=== PATIENT | female | born 1950 | race Caucasian/White ===

== ENCOUNTER 2022-01-30 06:44 | Emergency (ER) | payer MEDICARE ==
--- NOTE | 2022-01-30 07:44 | ERPHSYRPT ---
- History of Present Illness Time Seen by Provider: 01/30/22 07:00 Source: patient, EMS Exam Limitations: no limitations Patient Subjective Stated Complaint: Pt states "Around 0430 I started throwing up and having diarrhea non stop. [place] at [place] restuarant in [id number] night so I wonder if I got food poisoning" Triage Nursing Assessment: Pt alert and oriented x3, pt brought in by [facility] 1, pt c/o vomiting and diarrhea since 0430 this morning. pt denies stomach pain at this time, pt stated "I probably have thrown up around 10 times tonight." pt is afebrile at this time. Physician History: This is a 71-year-old overweight white female patient who presents to the emergency room with abdominal pain that began roughly 330 this morning and vomiting and diarrhea at approximately 430 this morning. She vomited aristides roximately 10 times prior to her evaluation in the emergency department. Patient states that she does have some generalized abdominal discomfort as well. Patient ate a tenderloin last night. Patient has had a hysterectomy in the past. She still has her fallopian tubes and ovaries present. She had no other abdominal surgeries. Patient states no other individuals in the family have similar symptoms. She has no known exposure to individuals with similar symptoms or flulike diagnoses. Patient has a history of psoriatic arthritis and osteoarthritis. There are no new medications. Patient denies chest pain. She denies shortness of breath. Timing/Duration: today Severity: moderate Associated Symptoms: nausea, vomiting, abdominal pain, weakness, No shortness of breath, No chest pain Allergies/Adverse Reactions: hydrocodone Adverse Reaction (Intermediate, Verified 01/30/22 06:49) Lightheadedness Home Medications: Allopurinol 100 mg [Zyloprim 100 mg] 2 tab PO DAILY 11/02/14 [History] Enalapril Maleate 20 mg PO DAILY 11/02/14 [History] Estropipate 0.75 mg PO DAILY 11/02/14 [History] Hydrochlorothiazide 25 mg [hydroDIURIL 25 MG] 25 mg PO DAILY 11/02/14 [History] Metoprolol Tartrate 100 mg PO DAILY 11/02/14 [History] Chlorzoxazone 500 mg PO DAILY 01/30/22 [History] Hx Tetanus, Diphtheria Vaccination/Date Given: Yes Hx Influenza Vaccination/Date Given: No Hx Pneumococcal Vaccination/Date Given: No Immunizations Up to Date: Yes Travel Risk - International Travel Have you traveled outside of the country in past 3 weeks: No - Coronavirus Screening Are you exhibiting any of the following symptoms?: Yes Symptoms: Vomiting/Diarrhea Close contact with a COVID-19 positive Pt in past 14-21 Days: No - Vaccine Status Have you recieved a Covid-19 vaccination: No - Review of Systems Constitutional: Weakness Eyes: No Symptoms Ears, Nose, & Throat: No Symptoms Respiratory: No Symptoms Cardiac: No Symptoms Abdominal/Gastrointestinal: Abdominal Pain, Nausea, Vomiting, Diarrhea Genitourinary Symptoms: No Symptoms Musculoskeletal: No Symptoms Skin: No Symptoms Neurological: No Symptoms Psychological: No Symptoms Endocrine: No Symptoms Hematologic/Lymphatic: No Symptoms Immunological/Allergic: No Symptoms All Other Systems: Reviewed and Negative - Past Medical History Pertinent Past Medical History: Yes Neurological History: No Pertinent History ENT History: No Pertinent History Cardiac History: Hypertension, Other Respiratory History: No Pertinent History Endocrine Medical History: No Pertinent History Musculoskeletal History: Osteoarthritis GI Medical History: No Pertinent History History: No Pertinent History Psycho-Social History: No Pertinent History Female Reproductive Disorders: No Pertinent History Other Medical History: ESCHEMIA OF THE HEART. PSORIATIC ARTHRITIS. - Past Surgical History Past Surgical History: Yes Neuro Surgical History: No Pertinent History Cardiac: No Pertinent History Respiratory: No Pertinent History Gastrointestinal: No Pertinent History Genitourinary: No Pertinent History Musculoskeletal: Orthopedic Surgery Female Surgical History: Hysterectomy, Tubal Ligation Other Surgical History: CARPEL TUNNEL - COLONOSCOPY - ARTHROSCOPY/R KNEE - Social History Smoking Status: Never smoker Exposure to second hand smoke: No Drug Use: none Patient Lives Alone: No - Nursing Vital Signs Nursing Vital Signs: Initial Vital Signs Temperature 97.8 F 01/30/22 06:50 Pulse Rate 71 01/30/22 06:50 Respiratory Rate 18 01/30/22 06:50 Blood Pressure 175/72 01/30/22 06:50 O2 Sat by Pulse Oximetry 100 01/30/22 06:50 Pain Scale Pain Intensity 0 - Physical Exam General Appearance: no apparent distress, alert, anxiety, obese Eye Exam: PERRL/EOMI, eyes nml inspection Ears, Nose, Throat Exam: normal ENT inspection, moist mucous membranes Neck Exam: normal inspection, non-tender, supple, full range of motion Respiratory Exam: normal breath sounds, lungs clear, airway intact, No chest tenderness, No respiratory distress Cardiovascular Exam: regular rate/rhythm, normal heart sounds, normal peripheral pulses Gastrointestinal/Abdomen Exam: soft, normal bowel sounds, tenderness (Mild diffuse with palpation), guarding, No rebound Pelvic Exam: not done Rectal Exam: not done Back Exam: normal inspection, normal range of motion, No CVA tenderness, No vertebral tenderness Extremity Exam: normal inspection, normal range of motion, pelvis stable Neurologic Exam: alert, oriented x 3, cooperative, batchmaker II-XII nml as tested, normal mood/affect, nml cerebellar function, nml station & gait, sensation nml Skin Exam: normal color, warm, dry Lymphatic Exam: No adenopathy SpO2 Interpretation: normal SpO2: 100 O2 Delivery: Room Air - Course Nursing assessment & vital signs reviewed: Yes EKG Interpreted by Me: RATE (69), Sinus Rhythm, NORMAL AXIS, NORMAL INTERVALS, NORMAL QRS, NORMAL ST-T, Other (No acute ischemic changes. No comparison EKG available) Ordered Tests: Active Orders 24 hr Category Date Time Status Senior Sales Engineer STAT Care 01/30/22 07:46 Active EKG-ER Only STAT Care 01/30/22 07:45 Active IV Insertion STAT Care 01/30/22 07:45 Active Pulse Oximetry (ED) STAT Care 01/30/22 07:45 Active ABDOMEN AND PELVIS W/0 CONTRAS [CT] Stat Exams 01/30/22 07:46 Completed BLOOD CULTURE Stat Lab 01/30/22 08:05 Received CBC W DIFF Stat Lab 01/30/22 08:01 Completed CMP Stat Lab 01/30/22 08:01 Completed INFLUENZA A+B TC Stat Lab 01/30/22 08:55 Completed Lactic Acid Stat Lab 01/30/22 07:45 Completed [place] Screen Stat Lab 01/30/22 08:01 Completed TROPONIN Q3H Lab 01/30/22 08:01 Completed TROPONIN Q3H Lab 01/30/22 11:00 Ordered TROPONIN Q3H Lab 01/30/22 14:00 Ordered TROPONIN Q3H Lab 01/30/22 17:00 Ordered TROPONIN Q3H Lab 01/30/22 20:00 Ordered UA W/RFX CULTURE Stat Lab 01/30/22 09:23 Completed Medication Summary Generic Name Dose Route Start Last Admin Trade Name Freq PRN Reason Stop Dose Admin Sodium Chloride 500 mls @ 500 mls/hr 01/30/22 09:33 01/30/22 09:42 Sodium Chloride 0.9% 500 Ml IV 01/30/22 10:32 500 mls/hr .Q1H ONE Administration Discontinued Medications Generic Name Dose Route Start Last Admin Trade Name Brandan PRN Reason Stop Dose Admin Sodium Chloride 1,000 mls @ 999 mls/hr 01/30/22 07:45 01/30/22 09:42 Sodium Chloride 0.9% 1000 Ml IV 01/30/22 08:45 Infused .Q1H1M STA Infusion Sodium Chloride Confirm 01/30/22 07:52 Sodium Chloride 0.9% 1000 Ml Administered 01/30/22 07:53 Dose 1,000 mls @ ud .ROUTE .STK-MED ONE Sodium Chloride Confirm 01/30/22 09:40 Sodium Chloride 0.9% 500 Ml Administered 01/30/22 09:41 Dose 500 mls @ ud IV .STK-MED ONE Ondansetron HCl 4 mg 01/30/22 07:51 01/30/22 07:55 Ondansetron Hcl 4 Mg/2 Ml Vial IV 01/30/22 07:52 4 mg STAT ONE Administration Ondansetron HCl Confirm 01/30/22 07:52 Ondansetron Hcl 4 Mg/2 Ml Vial Administered 01/30/22 07:53 Dose 4 mg .ROUTE .STK-MED ONE Lab/Rad Data: Laboratory Result Diagrams 01/30/22 08:01 01/30/22 08:01 Laboratory Results 01/30/22 01/30/22 01/30/22 Range/Units 09:23 08:55 08:01 WBC (4.0-10.5) K/mm3 RBC (4.1-5.4) M/mm3 Hgb (12.0-16.0) gm/dl Hct (35-47) % MCV (78-100) fl MCH (26-32) pg MCHC (32-36) g/dl RDW (11.5-14.0) % Plt Count (150-450) K/mm3 MPV (7.5-11.0) fl Gran % (36.0-66.0) % Eos # (Auto) (0-0.5) Absolute Lymphs (auto) (1.0-4.6) Absolute Monos (auto) (0.0-1.3) Lymphocytes % (24.0-44.0) % Monocytes % (0.0-12.0) % Eosinophils % (0.00-5.0) % Basophils % (0.0-0.4) % Absolute Granulocytes (1.4-6.9) Basophils # (0-0.4) Sodium (137-145) mmol/L Potassium (3.5-5.1) mmol/L Chloride (98-107) mmol/L Carbon Dioxide (22-30) mmol/L Anion Gap (5-15) MEQ/L BUN (7-17) mg/dL Creatinine (0.52-1.04) mg/dL Estimated GFR ML/MIN Glucose (74-106) mg/dL Lactic Acid (0.4-2.0) Calcium (8.4-10.2) mg/dL Total Bilirubin (0.2-1.3) mg/dL AST (14-36) U/L ALT (0-35) U/L Alkaline Phosphatase (38-126) U/L Troponin I < 0.012 (0.000-0.034) ng/mL Serum Total Protein (6.3-8.2) g/dL Albumin (3.5-5.0) g/dL Urinalys Dipstick Clnc MAIN LAB Urine Color YELLOW (YELLOW) Urine Appearance CLEAR (CLEAR) Urine pH 8.5 (5-6) Ur Specific [place] 1.020 (1.005-1.025) POC Urine Protein Conf NEGATIVE (Negative) Urine Ketones NEGATIVE (NEGATIVE) Urine Nitrite NEGATIVE (NEGATIVE) Urine Bilirubin NEGATIVE (NEGATIVE) Urine Urobilinogen 0.2 (0-1) mg/dL Urine Leukocytes NEGATIVE (NEGATIVE) Urine WBC (Auto) 0-2 (0-5) /HPF Urine RBC (Auto) 0-2 (0-2) /HPF U Epithel Cells (Auto) FEW (FEW) /HPF Urine Bacteria (Auto) FEW (NEGATIVE) /HPF Urine RBC NEGATIVE (0-5) Vinay/ul Ur Culture Indicated? NO Urine Glucose NEGATIVE (NEGATIVE) mg/dL Monoscreen (Negative) Influenza Type A Ag NEGATIVE (NEGATIVE) Influenza Type B Ag NEGATIVE (NEGATIVE) Group A Strep Antibody (NEGATIVE) Slides for Path Review 01/30/22 01/30/2201/30/22 Range/Units 08:01 08:01 08:01 WBC (4.0-10.5) K/mm3 RBC (4.1-5.4) M/mm3 Hgb (12.0-16.0) gm/dl Hct (35-47) % MCV (78-100) fl MCH (26-32) pg MCHC (32-36) g/dl RDW (11.5-14.0) % Plt Count (150-450) K/mm3 MPV (7.5-11.0) fl Gran % (36.0-66.0) % Eos # (Auto) (0-0.5) Absolute Lymphs (auto) (1.0-4.6) Absolute Monos (auto) (0.0-1.3) Lymphocytes % (24.0-44.0) % Monocytes % (0.0-12.0) % Eosinophils % (0.00-5.0) % Basophils % (0.0-0.4) % Absolute Granulocytes (1.4-6.9) Basophils # (0-0.4) Sodium 129 L (137-145) mmol/L Potassium 3.8 (3.5-5.1) mmol/L Chloride 90 L (98-107) mmol/L Carbon Dioxide 28 (22-30) mmol/L Anion Gap 14.6 (5-15) MEQ/L BUN 19 H (7-17) mg/dL Creatinine 0.77 (0.52-1.04) mg/dL Estimated GFR > 60.0 ML/MIN Glucose 150 H (74-106) mg/dL Lactic Acid (0.4-2.0) Calcium 9.1 (8.4-10.2) mg/dL Total Bilirubin 0.80 (0.2-1.3) mg/dL AST 38 H (14-36) U/L ALT 20 (0-35) U/L Alkaline Phosphatase 72 (38-126) U/L Troponin I (0.000-0.034) ng/mL Serum Total Protein 7.4 (6.3-8.2) g/dL Albumin 4.1 (3.5-5.0) g/dL Urinalys Dipstick Clnc Urine Color (YELLOW) Urine Appearance (CLEAR) Urine pH (5-6) Ur Specific [place] (1.005-1.025) POC Urine Protein Conf (Negative) Urine Ketones (NEGATIVE) Urine Nitrite (NEGATIVE) Urine Bilirubin (NEGATIVE) Urine Urobilinogen (0-1) mg/dL Urine Leukocytes (NEGATIVE) Urine WBC (Auto) (0-5) /HPF Urine RBC (Auto) (0-2) /HPF U Epithel Cells (Auto) (FEW) /HPF Urine Bacteria (Auto) (NEGATIVE) /HPF Urine RBC (0-5) Vinay/ul Ur Culture Indicated? Urine Glucose (NEGATIVE) mg/dL Monoscreen NEGATIVE (Negative) Influenza Type A Ag (NEGATIVE) Influenza Type B Ag (NEGATIVE) Group A Strep Antibody NOT DETECTED (NEGATIVE) Slides for Path Review 01/30/22 01/30/22 Range/Units 08:01 07:45 WBC 8.4 (4.0-10.5) K/mm3 RBC 4.25 (4.1-5.4) M/mm3 Hgb 13.8 (12.0-16.0) gm/dl Hct 40.9 (35-47) % MCV 96.2 (78-100) fl MCH 32.5 H (26-32) pg MCHC 33.7 (32-36) g/dl RDW 12.9 (11.5-14.0) % Plt Count 226 (150-450) K/mm3 MPV 9.7 (7.5-11.0) fl Gran % 86.7 H (36.0-66.0) % Eos # (Auto) 0.10 (0-0.5) Absolute Lymphs (auto) 0.52 L (1.0-4.6) Absolute Monos (auto) 0.49 (0.0-1.3) Lymphocytes % 6.2 L (24.0-44.0) % Monocytes % 5.8 (0.0-12.0) % Eosinophils % 1.2 (0.00-5.0) % Basophils % 0.1 (0.0-0.4) % Absolute Granulocytes 7.26 H (1.4-6.9) Basophils # 0.01 (0-0.4) Sodium (137-145) mmol/L Potassium (3.5-5.1) mmol/L Chloride (98-107) mmol/L Carbon Dioxide (22-30) mmol/L Anion Gap (5-15) MEQ/L BUN (7-17) mg/dL Creatinine (0.52-1.04) mg/dL Estimated GFR ML/MIN Glucose (74-106) mg/dL Lactic Acid 1.6 (0.4-2.0) Calcium (8.4-10.2) mg/dL Total Bilirubin (0.2-1.3) mg/dL AST (14-36) U/L ALT (0-35) U/L Alkaline Phosphatase (38-126) U/L Troponin I (0.000-0.034) ng/mL Serum Total Protein (6.3-8.2) g/dL Albumin (3.5-5.0) g/dL Urinalys Dipstick Clnc Urine Color (YELLOW) Urine Appearance (CLEAR) Urine pH (5-6) Ur Specific [place] (1.005-1.025) POC Urine Protein Conf (Negative) Urine Ketones (NEGATIVE) Urine Nitrite (NEGATIVE) Urine Bilirubin (NEGATIVE) Urine Urobilinogen (0-1) mg/dL Urine Leukocytes (NEGATIVE) Urine WBC (Auto) (0-5) /HPF Urine RBC (Auto) (0-2) /HPF U Epithel Cells (Auto) (FEW) /HPF Urine Bacteria (Auto) (NEGATIVE) /HPF Urine RBC (0-5) Vinay/ul Ur Culture Indicated? Urine Glucose (NEGATIVE) mg/dL Monoscreen (Negative) Influenza Type A Ag (NEGATIVE) Influenza Type B Ag (NEGATIVE) Group A Strep Antibody (NEGATIVE) Slides for Path Review YES - Progress Progress: improved, re-examined Progress Note: 01/30/22 10:00 CAT scan of the abdomen pelvis shows no acute intra-abdominal or intrapelvic findings. There is a hepatic cyst versus hepatic benign hemangioma. Further evaluation can be performed as an outpatient using ultrasound. There are ovarian cysts present. Counseled pt/family regarding: lab results, diagnosis, need for follow-up, rad results - Departure Departure Disposition: Home Clinical Impression: Vomiting and diarrhea Condition: Stable Critical Care Time: No Referrals: KALPANA SHORT [Primary Care Provider] - Follow up/PCP as directed Additional Instructions: Drink plenty of clear liquids prior to advancing your diet. Follow-up with your primary care physician for further evaluation and management. Prescriptions: Ondansetron ODT 4 MG [Zofran Odt 4 mg] 4 mg PO Q6H PRN PRN #10 tablet PRN Reason: Vomiting
[2022-01-30] MEDS ORDERED: Sodium Chloride 0.9% 1000 ML 1,000 ML IV STA (07:45)
[2022-01-30] MEDS ORDERED: Zofran 4 MG/2 ML VIAL IV ONE (07:51)
[2022-01-30] MEDS ORDERED: Sodium Chloride 0.9% 1000 ML 1,000 ML ONE (07:52)
[2022-01-30] MEDS ORDERED: Zofran 4 MG/2 ML VIAL ONE (07:52)
[2022-01-30 08:05] LABS: Absolute Neutrophil Ct (ANC) 7.26 (1.4-6.9); Basophil (Absolute #) 0.01 (0-0.4); Eosinophil % 1.2 % (0.00-5.0); Hematocrit 40.9 % (35-47); Hemoglobin 13.8 gm/dl (12.0-16.0); Lymphocyte (Absolute #) 0.52 (1.0-4.6); Lymphocytes % 6.2 % (24.0-44.0); Mean Cell Volume 96.2 fl (78-100); Mean Corpuscular Hemoglobin 32.5 pg (26-32); Mean Corpuscular Hgb Concent. 33.7 g/dl (32-36); Mean Platelet Volume 9.7 fl (7.5-11.0); Monocyte (Absolute #) 0.49 (0.0-1.3); Monocytes % 5.8 % (0.0-12.0); Neutrophil % 86.7 % (36.0-66.0); Platelet Count 226 K/mm3 (150-450); Red Blood Count 4.25 M/mm3 (4.1-5.4); Red Cell Distribution Width 12.9 % (11.5-14.0); White Blood Count 8.4 K/mm3 (4.0-10.5)
[2022-01-30 08:07] LABS: ALBUMIN 4.1 g/dL (3.5-5.0); ALKALINE PHOSPHATASE 72 U/L (38-126); ANION GAP 14.6 MEQ/L (5-15); BLOOD UREA NITROGEN 19 mg/dL (7-17); CHLORIDE 90 mmol/L (98-107); Calcium 9.1 mg/dL (8.4-10.2); Carbon Dioxide 28 mmol/L (22-30); Creatinine 1 0.77 mg/dL (0.52-1.04); EST GLOMERULAR FILTRATION RATE > 60.0 ML/MIN; Glucose 150 mg/dL (74-106); Potassium 3.8 mmol/L (3.5-5.1); SGOT/AST 38 U/L (14-36); SGPT/ALT 20 U/L (0-35); SODIUM 129 mmol/L (137-145); Total Protein 7.4 g/dL (6.3-8.2)
[2022-01-30 08:21] LABS: Slide Review 1 YES
--- NOTE | 2022-01-30 09:27 | XRAY ---
Indication: Abdomen pain, nausea, vomiting, and diarrhea. Multiple contiguous axial images obtained through the abdomen and pelvis without contrast. Comparison: None Lung bases demonstrates minimal fibrosis/scarring and tiny left base calcified granuloma. No infiltrate or effusion. Heart not enlarged. Small hiatal hernia. Noncontrasted stomach and bowel loops appear nonobstructed with normal appendix. Scattered sigmoid diverticulosis without diverticulitis. Uterus surgically absent. Bilateral ovaries cysts, largest on the right measuring 2.8 cm. No free fluid/air. Left lobe liver demonstrates 1.2 cm cyst versus hemangioma. Gallbladder partially contracted without gallstones. Tiny hepatic/splenic calcified granulomas. Remaining liver, gallbladder, pancreas, spleen, adrenal glands, kidneys, ureters, and bladder are unremarkable for noncontrast exam. Mild scattered aortoiliac calcifications without AAA. Osseous structures intact with mild osteopenia and mild/moderate degenerative changes throughout the spine greatest L4-S1 levels. Mild degenerative changes both hips. No ventral or inguinal hernias. Impression: 1. Small benign hepatic cyst versus benign hemangioma. Outpatient CT liver with contrast exam using hemangioma protocol could differentiate. 2. Bilateral ovarian cysts, largest on the right. 3. Small hiatal hernia, chronic bony findings, and old granulomatous disease.
[2022-01-30] MEDS ORDERED: Sodium Chloride 0.9% 500 ML 500 ML IV ONE ×2 (09:33→09:40)
[2022-01-30 09:38] LABS: Appearance CLEAR (CLEAR); Bacteria FEW /HPF (NEGATIVE); Bilirubin NEGATIVE (NEGATIVE); Epithelial Cells FEW /HPF (FEW); Glucose NEGATIVE (NEGATIVE); Ketones NEGATIVE (NEGATIVE); Nitrite NEGATIVE (NEGATIVE); Ph 8.5 (5-6); Protein,Urine Dip NEGATIVE (Negative); RBC 0-2 /HPF (0-2); RBC NEGATIVE Ery/ul (0-5); Urine Cultured Indicated? NO; Urobilinogen 0.2 mg/dL (0-1); WBC 0-2 /HPF (0-5)
[2022-01-30 09:41] LABS: Dipstick done @ ? MAIN LAB
[2022-01-30 10:23] LABS: INFLUENZA A NEGATIVE (NEGATIVE); INFLUENZA B NEGATIVE (NEGATIVE)
[2022-01-30 11:01] VITALS: BP 141/66; PULSE 70; O2SAT 97
== END 2022-01-30 11:01 | disposition home or self-care (01) ==
LOC: ED 06:44
DX: R11.2 Nausea with vomiting, unspecified (principal); R19.7 Diarrhea, unspecified; R10.84 Generalized abdominal pain; R53.1 Weakness; I10 Essential (primary) hypertension; Z79.899 Other long term (current) drug therapy
CPT/HCPCS: 36000; 36415; 74176; 80053; 81015; 83605; 84484; 85025; 86308; 87040; 87400; 87651; 93005; 93041; 94760; 96360; 96361; 96374; 99285; J2405

== ENCOUNTER 2022-07-15 20:48 | Emergency (ER) | payer MEDICARE ==
[2022-07-15 21:26] LABS: Basophil (Absolute #) 0.07 x10^3/uL (0-0.4); Eosinophil % 1.4 % (0.00-5.0); Eosinophil (Absolute #) 0.14 x10^3/uL (0-0.5); Hematocrit 37.9 % (35-47); Hemoglobin 12.3 g/dL (12.0-16.0); Lymphocyte (Absolute #) 0.84 x10^3/uL (1.0-4.6); Lymphocytes % 8.1 % (24.0-44.0); Mean Cell Volume 97.4 fL (78-100); Mean Corpuscular Hemoglobin 31.6 pg (26-32); Mean Corpuscular Hgb Concent. 32.5 g/dL (32-36); Mean Platelet Volume 8.7 fL (7.5-11.0); Monocyte (Absolute #) 0.67 x10^3/uL (0.0-1.3); Monocytes % 6.5 % (0.0-12.0); Neutrophil % 82.9 % (36.0-66.0); Platelet Count 195 x10^3/uL (150-450); Red Blood Count 3.89 x10^6/uL (4.1-5.4); Red Cell Distribution Width 13.2 % (11.5-14.0); White Blood Count 10.4 x10^3/uL (4.0-10.5)
[2022-07-15 21:41] LABS: ALBUMIN 3.8 g/dL (3.5-5.0); ALKALINE PHOSPHATASE 75 U/L (38-126); ANION GAP 9.4 MEQ/L (5-15); BLOOD UREA NITROGEN 14 mg/dL (7-17); CHLORIDE 96 mmol/L (98-107); Calcium 8.8 mg/dL (8.4-10.2); Carbon Dioxide 30 mmol/L (22-30); Creatinine 1 0.82 mg/dL (0.52-1.04); EST GLOMERULAR FILTRATION RATE > 60.0 ML/MIN; Glucose 120 mg/dL (74-106); Potassium 3.6 mmol/L (3.5-5.1); SGOT/AST 27 U/L (14-36); SGPT/ALT 18 U/L (0-35); SODIUM 132 mmol/L (137-145); Total Protein 6.7 g/dL (6.3-8.2)
[2022-07-15 21:43] LABS: INR 0.97 (0.8-3.0); PROTIME 10.3 SECONDS (9.4-12.5); PTT 22.6 SECONDS (25.1-36.5)
--- NOTE | 2022-07-15 21:56 | ERPHSYRPT ---
- History of Present Illness Source: patient, other (Spouse) Exam Limitations: other (Poor historian) Patient Subjective Stated Complaint: pt states while sitting at home, she began feeling light headed. states she stopped responing to him, arms stifffened, ans her eyes rolled back in her head Triage Nursing Assessment: pt alert and oriented, answers questions approp. pt ambulatory with steady gait noted. respirations nonlabored. skin warm and dry. heart rate 78, sinus rhythm on monitor. pupils equal and reactive. bilat upper and lower ext strength equal and wnl. Physician History: 72 yo wf w near-syncopal episode while sitting in a chair. Pt states that she started to feel a little nauseated and moved from a stool doing crafts to a recliner. She did not fall. Pt denies BASS/focal weakness/chest pain/palpatations/vomiting/dyspnea/fever/cough/melena/hematochezia. states that he might have seen some seizure activity. Witnessed: by family () Prior Episodes: single episode today Timing/Duration: today Precipitating Factors: none, nausea Context: sitting Loss of Consciousness: brief (seconds) Charcter of event(s): seizure activity observed Allergies/Adverse Reactions: hydrocodone Adverse Reaction (Intermediate, Verified 01/30/22 06:49) Lightheadedness Home Medications: Allopurinol 100 mg [Zyloprim 100 mg] 2 tab PO DAILY 11/02/14 [History] Enalapril Maleate 20 mg PO DAILY 11/02/14 [History] Estropipate 0.75 mg PO DAILY 11/02/14 [History] Hydrochlorothiazide 25 mg [hydroDIURIL 25 MG] 25 mg PO DAILY 11/02/14 [History] Metoprolol Tartrate 100 mg PO DAILY 11/02/14 [History] Chlorzoxazone 500 mg PO DAILY 01/30/22 [History] Hx Tetanus, Diphtheria Vaccination/Date Given: Yes Hx Influenza Vaccination/Date Given: No Hx Pneumococcal Vaccination/Date Given: No Immunizations Up to Date: Yes Travel Risk - International Travel Have you traveled outside of the country in past 3 weeks: No - Coronavirus Screening Are you exhibiting any of the following symptoms?: No Close contact with a COVID-19 positive Pt in past 14-21 Days: No - Vaccine Status Have you recieved a Covid-19 vaccination: No - Past Medical History Pertinent Past Medical History: Yes Neurological History: Seizures ENT History: No Pertinent History Cardiac History: Coronary Artery Disease, Hypertension, Other Respiratory History: No Pertinent History Endocrine Medical History: No Pertinent History Musculoskeletal History: Osteoarthritis GI Medical History: No Pertinent History History: No Pertinent History Psycho-Social History: No Pertinent History Female Reproductive Disorders: No Pertinent History Other Medical History: Seizures when ill with food poisoning 03/2022 - Past Surgical History Past Surgical History: Yes Neuro Surgical History: No Pertinent History Cardiac: No Pertinent History Respiratory: No Pertinent History Gastrointestinal: No Pertinent History Genitourinary: No Pertinent History Musculoskeletal: Orthopedic Surgery Female Surgical History: Hysterectomy, Tubal Ligation Other Surgical History: CARPEL TUNNEL - COLONOSCOPY - ARTHROSCOPY/R KNEE, lt foot surgery - Social History Smoking Status: Never smoker Exposure to second hand smoke: No Drug Use: none Patient Lives Alone: No Significant Family History: no pertinent family hx - Review of Systems Constitutional: No Symptoms Eyes: No Symptoms Ears, Nose, & Throat: No Symptoms Respiratory: No Symptoms Cardiac: No Symptoms Abdominal/Gastrointestinal: No Symptoms Genitourinary Symptoms: No Symptoms Musculoskeletal: No Symptoms Skin: No Symptoms Neurological: Headache Psychological: No Symptoms Endocrine: No Symptoms Hematologic/Lymphatic: No Symptoms Immunological/Allergic: No Symptoms Physical Exam - Nursing Vital Signs Nursing Vital Signs: Initial Vital Signs Temperature 98.1 F 07/15/22 21:16 Pulse Rate 71 07/15/22 21:16 Respiratory Rate 16 07/15/22 21:16 Blood Pressure 169/84 07/15/22 21:16 O2 Sat by Pulse Oximetry 99 07/15/22 21:16 Pain Scale Pain Intensity 0 Hypertensive - Martha Coma Scale Best Eye Response (Martha): (4) open spontaneously Best Verbal Response (Martha): (5) oriented Best Motor Response (Martha): (6) obeys commands Martha Total: 15 - Physical Exam General Appearance: no apparent distress Eye Exam: bilateral eye: normal inspection, PERRL, EOMI Ears, Nose, Throat Exam: normal ENT inspection, TMs normal, pharynx normal, moist mucous membranes Neck Exam: normal inspection, non-tender, supple, full range of motion, No meningismus, No mass, No Brudzinski, No Kernig's, No carotid bruit Respiratory: normal breath sounds, lungs clear, airway intact Cardiovascular: regular rate/rhythm, normal heart sounds, normal peripheral pulses, murmur, capillary refill <2 sec Gastrointestinal: soft Back Exam: normal inspection, normal range of motion, No CVA tenderness, No vertebral tenderness Extremity Exam: normal inspection, normal range of motion Peripheral Pulses: carotid (R): 2+, carotid (L): 2+ Mental Status: alert, oriented x 3, 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 Exam: normal hearing, normal speech, PERRL, tongue midline, No abnormal eye position, No abnormal gag reflex, No abnormal pupil position, No abnormal speech, No facial asymmetry, No facial droop, No facial paresthesias, No facial weakness, No gaze palsy, No hearing deficit (R), No hearing deficit (L), No to ngue deviation to R, No tongue deviation to L Motor/Sensory: no motor deficit, no sensory deficit, no pronator drift, negative Babinski's sign DTR: bicep (R): 2+, bicep (L): 2+ Skin Exam: normal color, warm, dry SpO2 Interpretation: normal SpO2: 99 O2 Delivery: Room Air - Course Nursing assessment & vital signs reviewed: Yes EKG Interpreted by Me: RATE (NSR/Rate 64/Minor poor Rwave progression V1-V2?No acute ST segment changes/Normal QT-QTc) - CT Exams Head CT Interpretation: Discussed w/radiologist (CT head neg per Rad) Ordered Tests: Active Orders 24 hr Category Date Time Status EKG-ER Only STAT Care 07/15/22 21:10 Completed IV Insertion STAT Care 07/15/22 21:10 Completed HEAD WITHOUT CONTRAST [CT] Stat Exams 07/15/22 21:37 Taken CBC W DIFF Stat Lab 07/15/22 21:25 Completed CMP Stat Lab 07/15/22 21:25 Completed POCT GLUCOSE Stat Lab 07/15/22 21:11 Completed PROTIME WITH INR Stat Lab 07/15/22 21:25 Completed PTT Stat Lab 07/15/22 21:25 Completed TROPONIN Q4H Lab 07/15/22 21:25 Completed TROPONIN Q4H Lab 07/15/22 23:35 Completed TROPONIN Q4H Lab 07/16/22 01:15 Ordered TROPONIN Q4H Lab 07/16/22 05:15 Ordered UA W/RFX CULTURE Stat Lab 07/15/22 22:43 Completed Lab/Rad Data: Laboratory Result Diagrams 07/15/22 21:25 07/15/22 21:25 Laboratory Results 07/15/22 07/15/22 07/15/22 Range/Units 23:35 22:43 21:25 WBC (4.0-10.5) x10^3/uL RBC (4.1-5.4) x10^6/uL Hgb (12.0-16.0) g/dL Hct (35-47) % MCV (78-100) fL MCH (26-32) pg MCHC (32-36) g/dL RDW (11.5-14.0) % Plt Count (150-450) x10^3/uL MPV (7.5-11.0) fL Gran % (36.0-66.0) % Immature Gran % (Auto) (0.00-0.4) % Nucleat RBC Rel Count (0.00-0.1) % Eos # (Auto) (0-0.5) x10^3/uL Immature Gran # (Auto) (0.00-0.03) x10^3u/L Absolute Lymphs (auto) (1.0-4.6) x10^3/uL Absolute Monos (auto) (0.0-1.3) x10^3/uL Absolute Nucleated RBC (0.00-0.01) x10^3u/L Lymphocytes % (24.0-44.0) % Monocytes % (0.0-12.0) % Eosinophils % (0.00-5.0) % Basophils % (0.0-0.4) % Absolute Granulocytes (1.4-6.9) x10^3/uL Basophils # (0-0.4) x10^3/uL PT 10.3 (9.4-12.5) SECONDS INR 0.97 (0.8-3.0) APTT 22.6 L (25.1-36.5) SECONDS Sodium (137-145) mmol/L Potassium (3.5-5.1) mmol/L Chloride (98-107) mmol/L Carbon Dioxide (22-30) mmol/L Anion Gap (5-15) MEQ/L BUN (7-17) mg/dL Creatinine (0.52-1.04) mg/dL Estimated GFR ML/MIN Glucose (74-106) mg/dL POC Glucometer (74 to 106) mg/dL Calcium (8.4-10.2) mg/dL Total Bilirubin (0.2-1.3) mg/dL AST (14-36) U/L ALT (0-35) U/L Alkaline Phosphatase (38-126) U/L Troponin I < 0.012 (0.000-0.034) ng/mL Serum Total Protein (6.3-8.2) g/dL Albumin (3.5-5.0) g/dL Urinalys Dipstick Clnc MAIN LAB Urine Color YELLOW (YELLOW) Urine Appearance CLEAR (CLEAR) Urine pH 7.0 (5-6) Ur Specific Amigo 1.020 (1.005-1.025) POC Urine Protein Conf NEGATIVE (Negative) Urine Ketones NEGATIVE (NEGATIVE) Urine Nitrite NEGATIVE (NEGATIVE) Urine Bilirubin NEGATIVE (NEGATIVE) Urine Urobilinogen 0.2 (0-1) mg/dL Urine Leukocytes NEGATIVE (NEGATIVE) Urine WBC (Auto) NONE (0-5) /HPF Urine RBC (Auto) NONE (0-2) /HPF U Hyaline Cast (Auto) 3-5 (0-2) /LPF U Epithel Cells (Auto) RARE (FEW) /HPF Urine Bacteria (Auto) RARE (NEGATIVE) /HPF Urine RBC NEGATIVE (0-5) Vinay/ul Ur Culture Indicated? NO Urine Glucose NEGATIVE (NEGATIVE) mg/dL 07/15/22 07/15/22 07/15/22 Range/Units 21:25 21:25 21:25 WBC 10.4 (4.0-10.5) x10^3/uL RBC 3.89 L (4.1-5.4) x10^6/uL Hgb 12.3 (12.0-16.0) g/dL Hct 37.9 (35-47) % MCV 97.4 (78-100) fL MCH 31.6 (26-32) pg MCHC 32.5 (32-36) g/dL RDW 13.2 (11.5-14.0) % Plt Count 195 (150-450) x10^3/uL MPV 8.7 (7.5-11.0) fL Gran % 82.9 H (36.0-66.0) % Immature Gran % (Auto) 0.4 (0.00-0.4) % Nucleat RBC Rel Count 0.0 (0.00-0.1) % Eos # (Auto) 0.14 (0-0.5) x10^3/uL Immature Gran # (Auto) 0.04 H (0.00-0.03) x10^3u/L Absolute Lymphs (auto) 0.84 L (1.0-4.6) x10^3/uL Absolute Monos (auto) 0.67 (0.0-1.3) x10^3/uL Absolute Nucleated RBC 0.00 (0.00-0.01) x10^3u/L Lymphocytes % 8.1 L (24.0-44.0) % Monocytes % 6.5 (0.0-12.0) % Eosinophils % 1.4 (0.00-5.0) % Basophils % 0.7 (0.0-0.4) % Absolute Granulocytes 8.60 H (1.4-6.9) x10^3/uL Basophils # 0.07 (0-0.4) x10^3/uL PT (9.4-12.5) SECONDS INR (0.8-3.0) APTT (25.1-36.5) SECONDS Sodium 132 L (137-145) mmol/L Potassium 3.6 (3.5-5.1) mmol/L Chloride 96 L (98-107) mmol/L Carbon Dioxide 30 (22-30) mmol/L Anion Gap 9.4 (5-15) MEQ/L BUN 14 (7-17) mg/dL Creatinine 0.82 (0.52-1.04) mg/dL Estimated GFR > 60.0 ML/MIN Glucose 120 H (74-106) mg/dL POC Glucometer (74 to 106) mg/dL Calcium 8.8 (8.4-10.2) mg/dL Total Bilirubin 0.30 (0.2-1.3) mg/dL AST 27 (14-36) U/L ALT 18 (0-35) U/L Alkaline Phosphatase 75 (38-126) U/L Troponin I < 0.012 (0.000-0.034) ng/mL Serum Total Protein 6.7 (6.3-8.2) g/dL Albumin 3.8 (3.5-5.0) g/dL Urinalys Dipstick Clnc Urine Color (YELLOW) Urine Appearance (CLEAR) Urine pH (5-6) Ur Specific Amigo (1.005-1.025) POC Urine Protein Conf (Negative) Urine Ketones (NEGATIVE) Urine Nitrite (NEGATIVE) Urine Bilirubin (NEGATIVE) Urine Urobilinogen (0-1) mg/dL Urine Leukocytes (NEGATIVE) Urine WBC (Auto) (0-5) /HPF Urine RBC (Auto) (0-2) /HPF U Hyaline Cast (Auto) (0-2) /LPF U Epithel Cells (Auto) (FEW) /HPF Urine Bacteria (Auto) (NEGATIVE) /HPF Urine RBC (0-5) Vinay/ul Ur Culture Indicated? Urine Glucose (NEGATIVE) mg/dL 07/15/22 Range/Units 21:11 WBC (4.0-10.5) x10^3/uL RBC (4.1-5.4) x10^6/uL Hgb (12.0-16.0) g/dL Hct (35-47) % MCV (78-100) fL MCH (26-32) pg MCHC (32-36) g/dL RDW (11.5-14.0) % Plt Count (150-450) x10^3/uL MPV (7.5-11.0) fL Gran % (36.0-66.0) % Immature Gran % (Auto) (0.00-0.4) % Nucleat RBC Rel Count (0.00-0.1) % Eos # (Auto) (0-0.5) x10^3/uL Immature Gran # (Auto) (0.00-0.03) x10^3u/L Absolute Lymphs (auto) (1.0-4.6) x10^3/uL Absolute Monos (auto) (0.0-1.3) x10^3/uL Absolute Nucleated RBC (0.00-0.01) x10^3u/L Lymphocytes % (24.0-44.0) % Monocytes % (0.0-12.0) % Eosinophils % (0.00-5.0) % Basophils % (0.0-0.4) % Absolute Granulocytes (1.4-6.9) x10^3/uL Basophils # (0-0.4) x10^3/uL PT (9.4-12.5) SECONDS INR (0.8-3.0) APTT (25.1-36.5) SECONDS Sodium (137-145) mmol/L Potassium (3.5-5.1) mmol/L Chloride (98-107) mmol/L Carbon Dioxide (22-30) mmol/L Anion Gap (5-15) MEQ/L BUN (7-17) mg/dL Creatinine (0.52-1.04) mg/dL Estimated GFR ML/MIN Glucose (74-106) mg/dL POC Glucometer 127 H (74 to 106) mg/dL Calcium (8.4-10.2) mg/dL Total Bilirubin (0.2-1.3) mg/dL AST (14-36) U/L ALT (0-35) U/L Alkaline Phosphatase (38-126) U/L Troponin I (0.000-0.034) ng/mL Serum Total Protein (6.3-8.2) g/dL Albumin (3.5-5.0) g/dL Urinalys Dipstick Clnc Urine Color (YELLOW) Urine Appearance (CLEAR) Urine pH (5-6) Ur Specific Amigo (1.005-1.025) POC Urine Protein Conf (Negative) Urine Ketones (NEGATIVE) Urine Nitrite (NEGATIVE) Urine Bilirubin (NEGATIVE) Urine Urobilinogen (0-1) mg/dL Urine Leukocytes (NEGATIVE) Urine WBC (Auto) (0-5) /HPF Urine RBC (Auto) (0-2) /HPF U Hyaline Cast (Auto) (0-2) /LPF U Epithel Cells (Auto) (FEW) /HPF Urine Bacteria (Auto) (NEGATIVE) /HPF Urine RBC (0-5) Vinay/ul Ur Culture Indicated? Urine Glucose (NEGATIVE) mg/dL - Progress Progress: improved Progress Note: 07/16/22 00:26 Pt wo focal weakness, seizure activity, chest pain, dyspnea, ectopy, or temperature greater than 100.5. She states that she has felt back to normal her entire time in the ER. Counseled pt/family regarding: lab results, diagnosis, need for follow-up, rad results - Departure Departure Disposition: Home Clinical Impression: Near syncope Condition: Stable Critical Care Time: No Referrals: RUSTAM WILLIS [Primary Care Provider] - Follow up/PCP as directed Instructions: Syncope (Fainting) (DC) Additional Instructions: Follow up with your family MD in AM No driving until cleared by your family MD Return to ER for focal weakness,chest pain, shortness of breath, or temperature greater than 100.5
[2022-07-15 22:53] LABS: Appearance CLEAR (CLEAR); Bilirubin NEGATIVE (NEGATIVE); Dipstick done @ ? MAIN LAB; Glucose NEGATIVE (NEGATIVE); Ketones NEGATIVE (NEGATIVE); Nitrite NEGATIVE (NEGATIVE); Protein,Urine Dip NEGATIVE (Negative); RBC NEGATIVE Ery/ul (0-5); Urobilinogen 0.2 mg/dL (0-1)
[2022-07-15 22:55] LABS: Bacteria RARE /HPF (NEGATIVE); Epithelial Cells RARE /HPF (FEW)
[2022-07-15 22:56] LABS: Urine Cultured Indicated? NO
[2022-07-16 00:52] VITALS: BP 154/79; PULSE 74
[2022-07-16 02:10] VITALS: O2SAT 99
--- NOTE | 2022-07-16 08:52 | XRAY ---
Indication: Syncope. Multiple contiguous axial images obtained through the head without contrast. Comparison: November 02, 2014 Normal appearing brain parenchyma, ventricles, and bony calvarium for patient's age. Visualized paranasal sinuses and mastoid air cells are clear. Impression: Continued normal CT head without contrast exam.
== END 2022-07-16 00:46 | disposition home or self-care (01) ==
LOC: ED 20:48
DX: R55 Syncope and collapse (principal); R56.9 Unspecified convulsions; I10 Essential (primary) hypertension; Z79.899 Other long term (current) drug therapy; Z86.79 Personal history of other diseases of the circulatory system
CPT/HCPCS: 36000; 36415; 70450; 80053; 81015; 82947; 84484; 85025; 85610; 85730; 93005; 99284

== ENCOUNTER 2022-11-11 10:48 | Emergency (ER) | payer MEDICARE ==
[2022-11-11 11:00] VITALS: BP 204/76; PULSE 75; O2SAT 98
--- NOTE | 2022-11-11 11:37 | XRAY ---
Indication: Pain. Comparison: None 3 view right knee demonstrates mild medial degenerative joint space narrowing/spurring and tiny nonspecific effusion. No other bony, articular, or soft tissue abnormalities.
--- NOTE | 2022-11-11 11:45 | ERPHSYRPT ---
- History of Present Illness Time Seen by Provider: 11/11/22 11:10 Source: patient Exam Limitations: no limitations Patient Subjective Stated Complaint: Pt states "I was walking down stairs and I led with my bad leg and not my good one and something behind my right knee st arted to burn and hurt really bad." Triage Nursing Assessment: PT presented alert and oriented X 3, skin pwd. pt ambulates with a limp. Pt right knee has no bruising, no swelling but tenderness posteriorly. Physician History: Patient is a 72-year-old female presents to emergency department for evaluation of knee pain. Patient was descending a flight of steps and felt sudden onset pain posterior aspect of her right knee. Patient advises that she has chronic knee pain. Patient was diagnosed with attic arthritis of the right knee about 30 years ago. This problem has been somewhat stable. However within the past couple weeks patient had a knee effusion which was drained by primary care doctor. After it was drained the fluid reaccumulated. Patient has been experiencing some degree of pain since. Pain was exacerbated recently while going down steps. No fever. No nausea or vomiting. No blunt trauma. Pain is an ache that is localized. No radiation. Patient voices no other complaints or concerns at this time. Portions of this note were created with voice recognition technology. There may be grammatical, spelling, punctuation or sound alike errors Method of Injury: other Occurred: yesterday Quality: constant Severity of Pain-Max: moderate Severity of Pain-Current: mild Lower Extremities Pain: knee: right Modifying Factors: Improves With: other (Weightbearing) Associated Symptoms: none Allergies/Adverse Reactions: hydrocodone Adverse Reaction (Intermediate, Verified 01/30/22 06:49) Lightheadedness Home Medications: Allopurinol 100 mg [Zyloprim 100 mg] 2 tab PO DAILY 11/02/14 [History] Enalapril Maleate 20 mg PO DAILY 11/02/14 [History] Estropipate 0.75 mg PO DAILY 11/02/14 [History] Hydrochlorothiazide 25 mg [hydroDIURIL 25 MG] 25 mg PO DAILY 11/02/14 [History] Metoprolol Tartrate 100 mg PO DAILY 11/02/14 [History] Chlorzoxazone 500 mg PO DAILY 01/30/22 [History] Hx Tetanus, Diphtheria Vaccination/Date Given: Yes Hx Influenza Vaccination/Date Given: No Hx Pneumococcal Vaccination/Date Given: No Immunizations Up to Date: Yes Travel Risk - International Travel Have you traveled outside of the country in past 3 weeks: No - Coronavirus Screening Are you exhibiting any of the following symptoms?: No Close contact with a COVID-19 positive Pt in past 14-21 Days: No - Vaccine Status Have you recieved a Covid-19 vaccination: No - Review of Systems Constitutional: No Symptoms, No Fever, No Chills Eyes: No Symptoms Ears, Nose, & Throat: No Symptoms Respiratory: No Symptoms, No Cough, No Dyspnea Cardiac: No Symptoms, No Chest Pain, No Edema, No Syncope Abdominal/Gastrointestinal: No Symptoms, No Abdominal Pain, No Nausea, No Vomiting, No Diarrhea Genitourinary Symptoms: No Symptoms, No Dysuria Musculoskeletal: No Symptoms, No Back Pain, No Neck Pain Skin: No Symptoms, No Rash Neurological: No Symptoms, No Dizziness, No Focal Weakness, No Sensory Changes Psychological: No Symptoms Endocrine: No Symptoms Hematologic/Lymphatic: No Symptoms Immunological/Allergic: No Symptoms All Other Systems: Reviewed and Negative - Past Medical History Pertinent Past Medical History: Yes Neurological History: Seizures ENT History: No Pertinent History Cardiac History: Coronary Artery Disease, Hypertension, Other Respiratory History: No Pertinent History Endocrine Medical History: No Pertinent History Musculoskeletal History: Osteoarthritis GI Medical History: No Pertinent History History: No Pertinent History Psycho-Social History: No Pertinent History Female Reproductive Disorders: No Pertinent History Other Medical History: Seizures when ill with food poisoning 03/2022 - Past Surgical History Past Surgical History: Yes Neuro Surgical History: No Pertinent History Cardiac: No Pertinent History Respiratory: No Pertinent History Gastrointestinal: No Pertinent History Genitourinary: No Pertinent History Musculoskeletal: Orthopedic Surgery Female Surgical History: Hysterectomy, Tubal Ligation Other Surgical History: CARPEL TUNNEL - COLONOSCOPY - ARTHROSCOPY/R KNEE, lt foot surgery - Social History Smoking Status: Never smoker Exposure to second hand smoke: No Drug Use: none Patient Lives Alone: No Significant Family History: no pertinent family hx - Nursing Vital Signs Nursing Vital Signs: Initial Vital Signs Temperature 97.8 F 11/11/22 10:55 Pulse Rate 75 11/11/22 10:55 Respiratory Rate 20 11/11/22 10:55 Blood Pressure 204/76 11/11/22 10:55 O2 Sat by Pulse Oximetry 98 11/11/22 10:55 Pain Scale Pain Intensity 10 - Physical Exam General Appearance: no apparent distress, alert Eyes, Ears, Nose, Throat Exam: moist mucous membranes Neck Exam: normal inspection, full range of motion Cardiovascular/Respiratory Exam: chest non-tender, regular rate/rhythm, no respiratory distress Back Exam: normal inspection, normal range of motion, No vertebral tenderness Hips Exam: bilateral: non-tender, normal inspection, normal range of motion, no evidence of injury Legs Exam: bilateral leg: non-tender, normal inspection, normal range of motion, no evidence of injury Knees Exam: right knee: pain (Pain posterior to the knee. Knee effusion observed. Some swelling laterally.), other (The involved right lower extremity is neurovascular distally. Compartments are soft. Cap refill less than 2 seconds.), left knee: non-tender, normal inspection, normal range of motion, no evidence of injury Ankle Exam: bilateral ankle: non-tender, normal inspection, normal range of motion, no evidence of injury Foot Exam: bilateral foot: non-tender, normal inspection, normal range of mo tion, no evidence of injury Neuro/Tendon Exam: normal sensation, normal motor functions Mental Status Exam: alert, oriented x 3, cooperative Skin Exam: normal color, warm, dry SpO2 Interpretation: normal SpO2: 98 O2 Delivery: Room Air - Course Nursing assessment & vital signs reviewed: Yes - Radiology Exams Knee X-ray Interpretation: Interpreted by me (Mild to moderate degenerative changes of the right knee. No fractures dislocations. There appears to be a knee effusion as well.) Ordered Tests: Active Orders 24 hr Category Date Time Status KNEE (3 VIEWS) Stat Exams 11/11/22 11:02 Completed - Progress Progress: improved Progress Note: Patient is a 72-year-old female presents to our ED with right knee pain. Patient was ascending a step which she injured her knee. Physical exam shows a knee effusion. There are some pain posterior aspect of the involved knee. Range of motion is normal. No signs of infection. Patient's complaint is acute. Injury occurred yesterday. Complexity of patient's complaint is moderate. Test ordered to include x-ray of the right knee. X-ray shows some mild degenerative changes. No fracture dislocations. Patient declined pain medication. Patient took Tylenol prior to arrival. Patient comfortable at rest. Patient advised to rest ice compression elevate. Patient has a walker at home which she will use in the meantime until her knee feels better. Patient referred to the orthopedic clinic for further evaluation and treatment. Social determinants of health lend themselves to a good follow-up. Level VM service provided was straightforward. Complexity of the problem addressed was low. Complexity of data reviewed and analyzed was low. Complication and or risk morbidity/mortality of patient management is low. No critical care time. Patient served as independent historian. Time spent during discharge is approximately 10 minutes. Discharge diagnosis is knee pain, knee effusion. Family member at bedside. Patient family voiced no other complaints or concerns at this time. Portions of this note were created with voice recognition technology. There may be grammatical, spelling, punctuation or sound alike errors 11/11/22 12:01 Counseled pt/family regarding: diagnosis, need for follow-up Medical Desision Making - Diagnostic Testing Diagnostic Testing: Diagnostic tests were ordered,analyzed, and reviewed by me and used in my medical decision making for this patient. Radiologic studies (if ordered) were read by me initially then discussed with the radiologist . - Departure Departure Disposition: Home (knee effusion) Clinical Impression: Knee pain, Arthritis of knee, Knee effusion Condition: Stable Critical Care Time: No Referrals: RUSTAM WILLIS [Primary Care Provider] - Follow up/PCP as directed Additional Instructions: Discharge/Care Plan SERGIO ROWE JAKE was seen on 11/11/22 in the Emergency Room. The patient was counseled regarding Diagnosis,Lab results, Imaging studies, need for follow up and when to return to the Emergency Room. Prescriptions given: Discharge Note I have spoken with the patient and/or caregivers. I have explained the patient's condition, diagnosis and treatment plan based on the information available to me at this time. I have answered the patient's and/or caregiver's questions and addressed any concerns. The patient and/or caregivers have as good understanding of the patient's diagnosis, condition and treatment plan as can be expected at this point. The vital signs have been stable. The patient's condition is stable and appropriate for discharge from the emergency department. The patient will pursue further outpatient evaluation with the primary care physician or other designated or consulting physician as outlined in the discharge instructions. The patient and/or caregivers are agreeable to this plan of care and follow-up instructions have been explained in detail. The patient and/or caregivers have received these instruction. The patient/and or caregivers are aware that any significant change in condition or worsening of symptoms should prompt an immediate return to this or the closest emergency department or call 911. Outpatient Orders: Ortho Referral Time Frame: 1 Day, Facility: [facility], Location: ORTHO CLINIC
== END 2022-11-11 12:13 | disposition home or self-care (01) ==
LOC: ED 10:48
DX: M17.11 Unilateral primary osteoarthritis, right knee (principal); M25.561 Pain in right knee; M25.461 Effusion, right knee; I10 Essential (primary) hypertension; Z79.899 Other long term (current) drug therapy; Z28.310 Unvaccinated for COVID-19
CPT/HCPCS: 73562; 99282

== ENCOUNTER 2023-06-06 12:30 | Observation (INO) | payer MEDICARE ==
--- NOTE | 2023-06-06 13:17 | ERPHSYRPT ---
- History of Present Illness Time Seen by Provider: 06/06/23 13:11 Source: patient, family Exam Limitations: no limitations Patient Subjective Stated Complaint: Patient c/o not feeling well for the past few days. She reports she became light headed yesterday while sitting on her toilet at home and fell off of the toilet and hit her head/face. Denies any current pain. Triage Nursing Assessment: Patient brought back to ER in a W/C. She is currently alert and oriented. No SOB. No Cough. Bruising noted to left side of upper lip; patient indicates from fall yesterday. CHAPPELL WNL. No edema. Physician History: pt has been feeling dizzy and has new Afib, but intermittently on blood thinner although took it today. She passed out adn hit her head last night. SHe has not felt well and has abd epigastric and chest pressure. NO prior hx CAD. PERRL, Fundi bening. EOM and visual evans full and intact. Chest clear. Ht irreg - afib on monitor. Abd tender without peritoneal signs. Ext without edema. Neuro exam and mental status normal. COnfirmed hx by independent interview with in ER as pt has been light h eaded to make sure accurate. . Discussed rsks/benefits CT head and c spine, Abd, CBC, Teleneuro, CMP, Trop, IV, EKG, BNP, D dimer, Mag, Thyroid/TSH, US with pt and and they wish to proceed. THese were ordered adn results discussed with them. Timing/Duration: day(s) Severity: moderate Deficits: no difficulties Baseline/Normal Cognition: alert oriented x 3 Current Cognition: alert oriented x 3 Baseline Gait: walks w/o assistance Associated Symptoms: loss of consciousness Allergies/Adverse Reactions: meclofenamic acid [From Meclomen] Allergy (Verified 06/06/23 12:42) naproxen Allergy (Verified 06/06/23 12:42) hydrocodone Adverse Reaction (Intermediate, Verified 06/06/23 12:42) Lightheadedness Home Medications: Allopurinol 100 mg [Zyloprim 100 mg] 2 tab PO DAILY 11/02/14 [History] Enalapril Maleate 20 mg PO BID 11/02/14 [History] Estropipate 0.75 mg PO DAILY 02/06/15 [History] Hydrochlorothiazide 25 mg [hydroDIURIL 25 MG] 25 mg PO DAILY 11/02/14 [History] B-Complex with Vitamin C [Vitamin B-Complex & C] 1 tab PO DAILY 06/06/23 [History] Cetirizine HCl 1 tab PO DAILY 06/06/23 [History] Furosemide 20 mg [Lasix 20 mg] 1 tab PO DAILY 06/06/23 [History] Metoprolol Tartrate 50 mg [Lopressor 50 MG] 0.5 tab PO BID 06/06/23 [History] Rivaroxaban [Xarelto] 1 tab PO DAILY 06/06/23 [History] Vit C/E/Zn/Coppr/Lutein/Zeaxan [Preservision Areds 2 Softgel] 2 cap PO DAILY 06/06/23 [History] Zinc Gluconate [Zinc] 1 tab PO DAILY 06/06/23 [History] Hx Tetanus, Diphtheria Vaccination/Date Given: Yes Hx Influenza Vaccination/Date Given: No Hx Pneumococcal Vaccination/Date Given: No Immunizations Up to Date: Yes Travel Risk - International Travel Have you traveled outside of the country in past 3 weeks: No - Coronavirus Screening Are you exhibiting any of the following symptoms?: No Close contact with a COVID-19 positive Pt in past 14-21 Days: No - Vaccine Status Have you recieved a Covid-19 vaccination: No - Review of Systems Constitutional: No Fever, No Chills Eyes: No Symptoms Ears, Nose, & Throat: No Symptoms Respiratory: Dyspnea, No Cough Cardiac: Chest Pain, No Edema, No Syncope Abdominal/Gastrointestinal: Abdominal Pain, No Nausea, No Vomiting, No Diarrhea Genitourinary Symptoms: No Dysuria Musculoskeletal: No Back Pain, No Neck Pain Skin: No Rash Neurological: No Dizziness, No Focal Weakness, No Sensory Changes Psychological: No Symptoms Endocrine: No Symptoms Hematologic/Lymphatic: No Symptoms Immunological/Allergic: No Symptoms All Other Systems: Reviewed and Negative - Past Medical History Pertinent Past Medical History: Yes Neurological History: No Pertinent History ENT History: Macular Degeneration Cardiac History: Coronary Artery Disease, Hypertension, Other Respiratory History: No Pertinent History Endocrine Medical History: No Pertinent History Musculoskeletal History: Osteoarthritis, Rheumatoid Arthritis GI Medical History: No Pertinent History History: No Pertinent History Psycho-Social History: No Pertinent History Female Reproductive Disorders: No Pertinent History Other Medical History: atrial fib, skin ca, carpal tunnel. 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 - Past Surgical History Past Surgical History: Yes Neuro Surgical History: No Pertinent History Cardiac: Cardiac Catheterization Respiratory: No Pertinent History Gastrointestinal: No Pertinent History Genitourinary: No Pertinent History Musculoskeletal: Orthopedic Surgery Female Surgical History: Hysterectomy, Tubal Ligation Other Surgical History: CARPEL TUNNEL - COLONOSCOPY - ARTHROSCOPY/R KNEE, lt foot surgery, skin cancer removal - Social History Smoking Status: Never smoker Exposure to second hand smoke: No Drug Use: none Patient Lives Alone: No Significant Family History: no pertinent family hx - Nursing Vital Signs Nursing Vital Signs: Initial Vital Signs Temperature 98 F 06/06/23 12:31 Pulse Rate 115 H 06/06/23 12:31 Respiratory Rate 18 06/06/23 12:31 Blood Pressure 130/80 06/06/23 12:31 O2 Sat by Pulse Oximetry 99 06/06/23 12:31 Pain Scale Pain Intensity 0 - [place] Coma Scale Best Eye Response ([place]): (4) open spontaneously Best Verbal Response ([place]): (5) oriented Best Motor Response (Martha): (6) obeys commands [place] Total: 15 - Physical Exam General Appearance: no apparent distress, alert Eye Exam: bilateral eye: PERRL, EOMI Ears, Nose, Throat Exam: normal ENT inspection, moist mucous membranes Neck Exam: normal inspection, non-tender, supple Respiratory: normal breath sounds, lungs clear, airway intact, No respiratory distress Cardiovascular: regular rate/rhythm, No edema Gastrointestinal: soft, No tenderness, No distention Pelvic Exam: deferred Rectal Exam: deferred Back Exam: normal inspection Extremity Exam: normal inspection, No pedal edema Peripheral Pulses: carotid (R): 2+, carotid (L): 2+, femoral (R): 2+, femoral (L): 2+, dorsalis-pedis (R): 2+, dorsalis-pedis (L): 2+ Mental 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: alert, 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: normal hearing, normal speech, PERRL, tongue midline Coordination/Gait: normal finger to nose, normal gait, normal cerebellar function Motor/Sensory: no motor deficit, no sensory deficit, no pronator drift DTR: bicep (R): 2+, bicep (L): 2+, tricep (R): 2+, tricep (L): 2+, knee (R): 2+, knee (L): 2+, ankle (R): 2+, ankle (L): 2+ Skin Exam: normal color, warm, dry, abrasion, ecchymosis (mouth from trauma teeth firm and intact), No rash SpO2 Interpretation: normal SpO2: 99 O2 Delivery: Room Air - Course Nursing assessment & vital signs reviewed: Yes EKG Interpreted by Me: A-fib, NORMAL AXIS, Non-specific ST Changes, Other (poor r wave prog) - CT Exams Head CT Interpretation: Tele-radiologist Report, No/Intracranial Hemorrhag, Other (chronic involutional changes) Abdomen/Pelvis CT Interpretation: Tele-radiologist Report, Other (diverticulosis) Lumbar Spine CT Interpretation: Tele-radiologist Report, Other (DJD) Cervical Spine CT Interpretation: Tele-radiologist Report, DJD Ordered Tests: Active Orders 24 hr Category Date Time Status EKG-ER Only STAT Care 06/06/23 13:21 Active IV Insertion STAT Care 06/06/23 13:21 Active ABDOMEN AND PELVIS W/0 CONTRAS [CT] Stat Exams 06/06/23 13:22 Completed CERVICAL SPINE WO CONTRAST [CT] Stat Exams 06/06/23 13:23 Completed CHEST WITH CONTRAST [CT] Stat Exams 06/06/23 14:27 Completed HEAD WITHOUT CONTRAST [CT] Stat Exams 06/06/23 13:23 Completed AMYLASE Stat Lab 06/06/23 13:40 Completed CBC W DIFF Stat Lab 06/06/23 13:40 Completed CK-Creatinine Phosphokinase Stat Lab 06/06/23 13:40 Completed CMP Stat Lab 06/06/23 13:40 Completed D-DIMER QUANTITATIVE Stat Lab 06/06/23 13:40 Completed Erythrocyte Sedimentation Rate Stat Lab 06/06/23 13:40 Completed LIPASE Stat Lab 06/06/23 13:40 Completed Lactic Acid Stat Lab 06/06/23 13:35 Completed MAGNESIUM Stat Lab 06/06/23 13:40 Completed NT PRO BNPII Stat Lab 06/06/23 13:40 Completed T4 (Thyroxine) Stat Lab 06/06/23 13:40 Completed TROPONIN Q4H Lab 06/06/23 13:40 Completed TROPONIN Q4H Lab 06/06/23 17:08 Completed TROPONIN Q4H Lab 06/06/23 21:30 Ordered TSH, 3RD Generation Stat Lab 06/06/23 13:40 Completed UA W/RFX UR CULTURE Stat Lab 06/06/23 13:22 Completed Medication Summary Generic Name Dose Route Start Last Admin Trade Name Brandan PRN Reason Stop Dose Admin Sodium Chloride 1,000 mls @ 100 mls/hr 06/06/23 13:30 06/06/23 14:14 Sodium Chloride 0.9% 1000 Ml IV 07/06/23 13:29 100 mls/hr .Q10H MARIA ELENA Administration Lab/Rad Data: Laboratory Result Diagrams 06/06/23 13:40 06/06/23 13:40 Laboratory Results 06/06/23 06/06/23 06/06/23 Range/Units 17:08 13:40 13:40 WBC 11.1 H (4.0-10.5) x10^3/uL RBC 4.42 (4.1-5.4) x10^6/uL Hgb 13.8 (12.0-16.0) g/dL Hct 43.2 (35-47) % MCV 97.7 (78-100) fL MCH 31.2 (26-32) pg MCHC 31.9 L (32-36) g/dL RDW 13.2 (11.5-14.0) % Plt Count 329 (150-450) x10^3/uL MPV 8.9 (7.5-11.0) fL Gran % 81.1 H (36.0-66.0) % Immature Gran % (Auto) 1.2 H (0.00-0.4) % Nucleat RBC Rel Count 0.0 (0.00-0.1) % Eos # (Auto) 0.07 (0-0.5) x10^3/uL Immature Gran # (Auto) 0.13 H (0.00-0.03) x10^3u/L Absolute Lymphs (auto) 1.09 (1.0-4.6) x10^3/uL Absolute Monos (auto) 0.74 (0.0-1.3) x10^3/uL Absolute Nucleated RBC 0.00 (0.00-0.01) x10^3u/L Lymphocytes % 9.9 L (24.0-44.0) % Monocytes % 6.7 (0.0-12.0) % Eosinophils % 0.6 (0.00-5.0) % Basophils % 0.5 (0.0-0.4) % Absolute Granulocytes 8.97 H (1.4-6.9) x10^3/uL Basophils # 0.06 (0-0.4) x10^3/uL ESR (0-20) mm/hr D-Dimer (0.0-0.50) mg/L Sodium (137-145) mmol/L Potassium (3.5-5.1) mmol/L Chloride (98-107) mmol/L Carbon Dioxide (22-30) mmol/L Anion Gap (5-15) MEQ/L BUN (7-17) mg/dL Creatinine (0.52-1.04) mg/dL Estimated GFR ML/MIN Glucose (74-106) mg/dL Lactic Acid (0.4-2.0) Calcium (8.4-10.2) mg/dL Magnesium (1.6-2.3) mg/dL Total Bilirubin (0.2-1.3) mg/dL AST (14-36) U/L ALT (0-35) U/L Alkaline Phosphatase (38-126) U/L Creatine Kinase (30-135) U/L Troponin I < 0.012 (0.000-0.034) ng/mL NT-Pro-B Natriuret Pep 2940 (<300) pg/mL Serum Total Protein (6.3-8.2) g/dL Albumin (3.5-5.0) g/dL Amylase (30-110) U/L Lipase (23-300) U/L Thyroxine (T4) 7.22 (5.53-10.96) ug/dL TSH 3rd Generation (0.47-4.68) mIU/L Urine Color (Yellow) Urine Appearance (Clear) Urine pH (4.6-8.0) Ur Specific [place] (1.005-1.030) Urine Protein (Negative) Urine Glucose (UA) (Negative) mg/dL Urine Ketones (Negative) Urine Blood (Negative) Urine Nitrite (Negative) Urine Bilirubin (Negative) Urine Urobilinogen (0.2) mg/dL Ur Leukocyte Esterase (Negative) U Hyaline Cast (Auto) (0-2) /LPF Urine Microscopic RBC (0-5) /HPF Urine Microscopic WBC (0-5) /HPF Ur Epithelial Cells (None Seen) /HPF Urine Bacteria (None Seen) /HPF Urine Culture Reflexed (NO) 06/06/23 06/06/23 06/06/23 Range/Units 13:40 13:40 13:40 WBC (4.0-10.5) x10^3/uL RBC (4.1-5.4) x10^6/uL Hgb (12.0-16.0) g/dL Hct (35-47) % MCV (78-100) fL MCH (26-32) pg MCHC (32-36) g/dL RDW (11.5-14.0) % Plt Count (150-450) x10^3/uL MPV (7.5-11.0) fL Gran % (36.0-66.0) % Immature Gran % (Auto) (0.00-0.4) % Nucleat RBC Rel Count (0.00-0.1) % Eos # (Auto) (0-0.5) x10^3/uL Immature Gran # (Auto) (0.00-0.03) x10^3u/L Absolute Lymphs (auto) (1.0-4.6) x10^3/uL Absolute Monos (auto) (0.0-1.3) x10^3/uL Absolute Nucleated RBC (0.00-0.01) x10^3u/L Lymphocytes % (24.0-44.0) % Monocytes % (0.0-12.0) % Eosinophils % (0.00-5.0) % Basophils % (0.0-0.4) % Absolute Granulocytes (1.4-6.9) x10^3/uL Basophils # (0-0.4) x10^3/uL ESR (0-20) mm/hr D-Dimer 2.05 H* (0.0-0.50) mg/L Sodium 129 L (137-145) mmol/L Potassium 4.2 (3.5-5.1) mmol/L Chloride 96 L (98-107) mmol/L Carbon Dioxide 27 (22-30) mmol/L Anion Gap 10.7 (5-15) MEQ/L BUN 15 (7-17) mg/dL Creatinine 0.72 (0.52-1.04) mg/dL Estimated GFR > 60.0 ML/MIN Glucose 105 (74-106) mg/dL Lactic Acid (0.4-2.0) Calcium 8.8 (8.4-10.2) mg/dL Magnesium 1.9 (1.6-2.3) mg/dL Total Bilirubin 0.70 (0.2-1.3) mg/dL AST 43 H (14-36) U/L ALT 36 H (0-35) U/L Alkaline Phosphatase 73 (38-126) U/L Creatine Kinase 27 L (30-135) U/L Troponin I < 0.012 (0.000-0.034) ng/mL NT-Pro-B Natriuret Pep (<300) pg/mL Serum Total Protein 6.7 (6.3-8.2) g/dL Albumin 3.7 (3.5-5.0) g/dL Amylase 92 (30-110) U/L Lipase 92 (23-300) U/L Thyroxine (T4) (5.53-10.96) ug/dL TSH 3rd Generation 0.979 (0.47-4.68) mIU/L Urine Color (Yellow) Urine Appearance (Clear) Urine pH (4.6-8.0) Ur Specific [place] (1.005-1.030) Urine Protein (Negative) Urine Glucose (UA) (Negative) mg/dL Urine Ketones (Negative) Urine Blood (Negative) Urine Nitrite (Negative) Urine Bilirubin (Negative) Urine Urobilinogen (0.2) mg/dL Ur Leukocyte Esterase (Negative) U Hyaline Cast (Auto) (0-2) /LPF Urine Microscopic RBC (0-5) /HPF Urine Microscopic WBC (0-5) /HPF Ur Epithelial Cells (None Seen) /HPF Urine Bacteria (None Seen) /HPF Urine Culture Reflexed (NO) 06/06/23 06/06/23 06/06/23 Range/Units 13:40 13:35 13:22 WBC (4.0-10.5) x10^3/uL RBC (4.1-5.4) x10^6/uL Hgb (12.0-16.0) g/dL Hct (35-47) % MCV (78-100) fL MCH (26-32) pg MCHC (32-36) g/dL RDW (11.5-14.0) % Plt Count (150-450) x10^3/uL MPV (7.5-11.0) fL Gran % (36.0-66.0) % Immature Gran % (Auto) (0.00-0.4) % Nucleat RBC Rel Count (0.00-0.1) % Eos # (Auto) (0-0.5) x10^3/uL Immature Gran # (Auto) (0.00-0.03) x10^3u/L Absolute Lymphs (auto) (1.0-4.6) x10^3/uL Absolute Monos (auto) (0.0-1.3) x10^3/uL Absolute Nucleated RBC (0.00-0.01) x10^3u/L Lymphocytes % (24.0-44.0) % Monocytes % (0.0-12.0) % Eosinophils % (0.00-5.0) % Basophils % (0.0-0.4) % Absolute Granulocytes (1.4-6.9) x10^3/uL Basophils # (0-0.4) x10^3/uL ESR 36 H (0-20) mm/hr D-Dimer (0.0-0.50) mg/L Sodium (137-145) mmol/L Potassium (3.5-5.1) mmol/L Chloride (98-107) mmol/L Carbon Dioxide (22-30) mmol/L Anion Gap (5-15) MEQ/L BUN (7-17) mg/dL Creatinine (0.52-1.04) mg/dL Estimated GFR ML/MIN Glucose (74-106) mg/dL Lactic Acid 1.6 (0.4-2.0) Calcium (8.4-10.2) mg/dL Magnesium (1.6-2.3) mg/dL Total Bilirubin (0.2-1.3) mg/dL AST (14-36) U/L ALT (0-35) U/L Alkaline Phosphatase (38-126) U/L Creatine Kinase (30-135) U/L Troponin I (0.000-0.034) ng/mL NT-Pro-B Natriuret Pep (<300) pg/mL Serum Total Protein (6.3-8.2) g/dL Albumin (3.5-5.0) g/dL Amylase (30-110) U/L Lipase (23-300) U/L Thyroxine (T4) (5.53-10.96) ug/dL TSH 3rd Generation (0.47-4.68) mIU/L Urine Color Yellow (Yellow) Urine Appearance Clear (Clear) Urine pH 6.5 (4.6-8.0) Ur Specific [place] <=1.005 (1.005-1.030) Urine Protein Negative (Negative) Urine Glucose (UA) Negative (Negative) mg/dL Urine Ketones Negative (Negative) Urine Blood Negative (Negative) Urine Nitrite Negative (Negative) Urine Bilirubin Negative (Negative) Urine Urobilinogen 0.2 (0.2) mg/dL Ur Leukocyte Esterase Negative (Negative) U Hyaline Cast (Auto) NONE SEEN (0-2) /LPF Urine Microscopic RBC 0-2 (0-5) /HPF Urine Microscopic WBC 0-2 (0-5) /HPF Ur Epithelial Cells None Seen (None Seen) /HPF Urine Bacteria None Seen (None Seen) /HPF Urine Culture Reflexed NO (NO) - Progress Progress: improved, re-examined Progress Note: 06/06/23 19:07 discussed with pt and family need for admission to stablize Afib, rule out c ardiac, and they agree Neuro states not acute neuro and can resume AC and other w/u. Call to hospitalist pending. 06/06/23 19:23 discussed / consulted with Dr. Hernandez and she will place pt in on OBS to adjust meds for AFIB and AC. Discussed with : Vee, Other Will see patient in: hospital (observation) Counseled pt/family regarding: lab results, diagnosis, need for follow-up, rad results Medical Desision Making - Independent Historian Additional History obtained from: Spouse - Discussion of managment Care discussed with:: hospitalist Reviewed:: Test results, Need for additional workup Agreed on:: Treatment plan, decision to admit, place in obs Will see patient: in hospital - Diagnostic Testing Diagnostic test were ordered, analyzed, and reviewed by me: Yes Radiological Interpretation: Teleradiologist Report - Risk of complications The pt has a mod risk of morbidity or mortality based on: Need for prescription drug management The pt has a high risk of morbidity or mortality based on: Decision regarding hospitilization or escalation of hosp level of care - Departure Departure Disposition: Observation Clinical Impression: Afib, Syncope, Afib with rapid rate Condition: Good Critical Care Time: No Referrals: RUSTAM WILLIS [Primary Care Provider] - Follow up/PCP as directed
[2023-06-06] MEDS ORDERED: Sodium Chloride 0.9% 1000 ML 1,000 ML IV SCH (13:30)
[2023-06-06 13:43] LABS: Absolute Neutrophil Ct (ANC) 8.97 x10^3/uL (1.4-6.9); BASOPHIL % 0.5 % (0.0-0.4); Basophil (Absolute #) 0.06 x10^3/uL (0-0.4); Eosinophil % 0.6 % (0.00-5.0); Eosinophil (Absolute #) 0.07 x10^3/uL (0-0.5); Hematocrit 43.2 % (35-47); Hemoglobin 13.8 g/dL (12.0-16.0); IMMATURE GRAN # 0.13 x10^3u/L (0.00-0.03); IMMATURE GRAN % 1.2 % (0.00-0.4); Lymphocyte (Absolute #) 1.09 x10^3/uL (1.0-4.6); Lymphocytes % 9.9 % (24.0-44.0); Mean Cell Volume 97.7 fL (78-100); Mean Corpuscular Hemoglobin 31.2 pg (26-32); Mean Corpuscular Hgb Concent. 31.9 g/dL (32-36); Mean Platelet Volume 8.9 fL (7.5-11.0); Monocyte (Absolute #) 0.74 x10^3/uL (0.0-1.3); Monocytes % 6.7 % (0.0-12.0); Neutrophil % 81.1 % (36.0-66.0); Platelet Count 329 x10^3/uL (150-450); Red Blood Count 4.42 x10^6/uL (4.1-5.4); Red Cell Distribution Width 13.2 % (11.5-14.0); White Blood Count 11.1 x10^3/uL (4.0-10.5)
[2023-06-06] MEDS ORDERED: Sodium Chloride 0.9% 1000 ML 1,000 ML ONE (14:13)
[2023-06-06 14:17] LABS: T4 (Thyroxine) 7.22 ug/dL (5.53-10.96)
[2023-06-06 14:23] LABS: Appearance Clear (Clear); Bacteria None Seen /HPF (None Seen); Bilirubin Negative (Negative); Blood Negative (Negative); Epithelial Cells None Seen /HPF (None Seen); Glucose, Urine Negative (Negative); Hyaline Casts NONE SEEN /LPF (0-2); Ketones Negative (Negative); Leukocyte Esterase Negative (Negative); Nitrite Negative (Negative); Ph 6.5 (4.6-8.0); Protein,Urine Dip Negative (Negative); RBC 0-2 /HPF (0-5); Specific Gravity <=1.005 (1.005-1.030); Urobilinogen 0.2 mg/dL (0.2); WBC 0-2 /HPF (0-5)
[2023-06-06 14:29] LABS: ADD URINE CULTURE? NO (NO)
--- NOTE | 2023-06-06 14:31 | XRAY ---
CLINICAL HISTORY:abd pain LOC COMPARISON:None TECHNIQUE:Multiplanar non contrast CT study performed of the abdomen and pelvis. CTDI 9.23, DLP 421.75 FINDINGS: There are multiple air containing diverticular outpouchings seen along the large bowel, slightly more in quantity at the level of sigmoid colon. There is congestion of the mesentery adjacent to sigmoid colon with mild fat stranding. The finding in view of history suggests diverticulosis with early diverticulitis, no abscess formation or pneumoperitoneum on present study, clinical correlation and follow up recommended. The stomach and bowel are otherwise mainly collapsed and unremarkable with no mechanical obstruction or ileus. Multiple coarse specks of benign looking calcifications in the liver and spleen are noted, mostly milimetric in size, likely granulomas for clinical correlation. Both these viscera are otherwise unremarkable within the limitations of a non enhanced study. Non dilated biliary tree. Perinephric fat stranding seen around both kidneys with mild cortical scarring bilaterally. The findings suggest medical nephropathy versus UTI, for clinical correlation and workup as indicated, otherwise both kidney show no stone back pressure or cyst. Within limitations of a plain study, both adrenal glands, gall bladder and pancreas appear unremarkable. No fluid collection noted. Vascular calcifications noted. Urinary bladder is optimally distended with no stone seen. In bony structures osteopenia, multilevel advanced spondylodegenerative changes noted with disc degeneration and end plate sclerosis, sub acute to chronic bony findings. Lung bases are clear. IMPRESSION: Colonic diverticulosis sigmoid colonic predominance with early acute sigmoid diverticulitis. Clinical correlation is recommended. Hepatosplenic calcifications ? granulomas. Perinephric fat stranding seen around both kidneys with mild cortical scarring bilaterally. The findings suggest medical nephropathy versus UTI, for clinical correlation and workup as indicated, Electronically Signed by: Rita Mejia MD. (06/06/2023 13:29:23 MUSIC SUPERVISOR)
--- NOTE | 2023-06-06 14:31 | XRAY ---
CLINICAL HISTORY:LOC struck head COMPARISON:None TECHNIQUE:Multiplanar non contrast CT cervical spine. CTDI 75, DLP 1316 FINDINGS: Loss of lordosis denotes muscle spasm. No listhesis is seen. No fracture noted in cervical spine. Normal craniometric measurements of the craniocervical junction. At C4 through C7 advanced exubberant bony hyperostosis / osteophyte formation seen anteriorly and facet joint arthropathy seen with dense vertebral sclerosis and loss of intervening disc height, mostly the findings are sequela of advanced spondylodegeneration, if marrow sclerosis is conerning this may be further evaluated by a post contrast MRI. Multilevel posterior osteophyte formation encroaching the central canal canal and bony neural foramina noted. Level by level analysis: C1-2: No bony central canal or neural foraminal narrowing. C2-3: No bony central canal or neural foraminal narrowing. C3-4: 3 mm circumferential disc-ossified spurring with augmentary effect of posterior element degenerative hypertrophy associated ventral thecal effacement, bilateral bony neural foraminal mild narrowing. C4-5: 4.5 mm circumferential disc-ossified spurring with augmentary effect of posterior element degenerative hypertrophy associated mild central canal stenosis and bilateral bony neural foraminal moderate narrowing. C5-6: 5 mm circumferential disc-ossified spurring with augmentary effect of posterior element degenerative hypertrophy associated mild central canal stenosis and bilateral bony neural foraminal moderate narrowing. C6-7: 3 mm circumferential disc-ossified spurring with augmentary effect of posterior element degenerative hypertrophy associated ventral thecal effacement, bilateral bony neural foraminal mild narrowing. IMPRESSION: In setting of explained clinical trauma, no acute osseous abnormality. 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 Multilevel disc migratory and degenerative spinal change related bony canal and foraminal narrowing is noted. C3-4 3 mm circumferential disc-ossified spurring, ventral thecal effacement and mild bony foraminal narrowing bilaterally. C4-5: 4.5 mm circumferential disc-ossified spurring, mild central canal stenosis and bilateral bony neural foraminal moderate narrowing. C5-6: 5 mm circumferential disc-ossified spurring, mild central canal stenosis and bilateral bony neural foraminal moderate narrowing. C6-7: 3 mm circumferential disc-ossified spurring, ventral thecal effacement, bilateral bony neural foraminal mild narrowing. Clinical correlation recommended. Electronically Signed by: Rita Mejia MD. (06/06/2023 13:30:34 MOLD STAMPER AND REPAIRER)
[2023-06-06 14:32] LABS: ALBUMIN 3.7 g/dL (3.5-5.0); ALKALINE PHOSPHATASE 73 U/L (38-126); AMYLASE 92 U/L (30-110); ANION GAP 10.7 MEQ/L (5-15); BLOOD UREA NITROGEN 15 mg/dL (7-17); CHLORIDE 96 mmol/L (98-107); CK-Creatinine Phosphokinase 27 U/L (30-135); Calcium 8.8 mg/dL (8.4-10.2); Carbon Dioxide 27 mmol/L (22-30); Creatinine 1 0.72 mg/dL (0.52-1.04); EST GLOMERULAR FILTRATION RATE > 60.0 ML/MIN; Glucose 105 mg/dL (74-106); LIPASE 92 U/L (23-300); MAGNESIUM 1.9 mg/dL (1.6-2.3); Potassium 4.2 mmol/L (3.5-5.1); SGOT/AST 43 U/L (14-36); SGPT/ALT 36 U/L (0-35); SODIUM 129 mmol/L (137-145); TSH, 3RD Generation 0.979 mIU/L (0.47-4.68); Total Protein 6.7 g/dL (6.3-8.2)
--- NOTE | 2023-06-06 14:55 | XRAY ---
CLINICAL HISTORY:LOC struck head COMPARISON:None TECHNIQUE:Multiplanar non contrast CT head performed. CTDI 75, DLP 1316. FINDINGS: Prominence of extra axial CSF spaces in general and mildly increased hypo densit of the periventricular white matter, the findings denote mild involutional senile brain parenchymatous changes and mild periventricular white matter ischemic changes. No intracranial hematoma, established ischemic territorial infarction or mass affect. No hydrocephalus or midline abnormality. Posterior fossa structures appear unremarkable. Vascular calcifications are noted athersclerotic. Both orbis appear unremarkable. No acute osseous injury noted. There is deviation of nasal septum to right with left middle turbinate choncha bullosa. Paranasal sinuses are clear. Incidental note of a tiny low density focus along anterior falx consistent with a fatty falx cerebri, not to be misinterpretated as pneumocephalus. IMPRESSION: Senile brain parenchymal involutional changes and mild white matter microvascular ischemic changes. No intracranial hematoma, established ischemic territorial infarction, mass affect or acute bony injury. Clinical correlation advised for further evaluation. Electronically Signed by: Rita Mejia MD. (06/06/2023 13:53:28 RADIO REPAIRER)
--- NOTE | 2023-06-06 16:52 | XRAY ---
CLINICAL HISTORY:elevated d dimer/SOBreath COMPARISON:None. TECHNIQUE:Contiguous thin axial CT images of the chest were acquired with the administration of intravenous contrast. Coronal and sagittal reconstructions were obtained. FINDINGS: Patent pulmonary artery and its branches with adequate contrast filling. No evident filling defects. Diffuse mosaic attenuation pattern of the pulmonary parenchyma noted. Few calcified pulmonary nodules were seen, mostly representing old granulomas. No definite consolidative or mass lesions. No free or encysted pleural effusion. Heart size is mildly enlarged. Mild pericardial effusion noted. No pathologically enlarged mediastinal, hilar or axillary lymph node identified. There is no definite mass lesion in the chest wall except areas of parenchymal asymmetry in both breasts for clinical correlation. IMPRESSION: No radiological evidence of pulmonary embolism. Picture suggesting air entrapment (COPD), for clinical correlation. Few calcified pulmonary granulomas. Mild cardiomegaly and pericardial effusion. Electronically Signed by: Rita Mejia MD. (06/06/2023 15:51:07 CONSUMER INSIGHTS SPECIALIST)
[2023-06-06] MEDS ORDERED: LOPRESSOR INJECTION IV PRN (21:41)
[2023-06-06] MEDS ORDERED: Docusate Sodium 100 MG PO PRN (21:45)
[2023-06-06] MEDS ORDERED: MILK OF MAGNESIA 30 ML PO PRN (21:45)
[2023-06-06] MEDS ORDERED: DUONEB 0.5-3 MG/3 ml Neb IH PRN (21:45)
[2023-06-06] MEDS ORDERED: Zofran 4 MG/2 ML VIAL IV PRN (21:45)
[2023-06-06] MEDS ORDERED: TYLENOL 325 MG PO PRN (21:45)
[2023-06-06] MEDS ORDERED: Vasotec 10 MG ONE (21:55)
--- NOTE | 2023-06-06 21:55 | PCM.HP ---
History of Present Illness - Chief Complaint Chief Complaint: Afib uncontrolled with chest pain and syncope Date: 06/06/23 History of Present Illness: This is a 72-year-old female admitted to the hospital for evaluation of syncope. She has history of A-fib on anticoagulation. She presented to the ED today after episode syncope several days ago associated with episode of constipation and straining. She reports since then she has felt weak and having episodes of feeling dizzy, and diaphoretic which has been associated with tachycardia. She came to the ED tonight due to persistent episodes. On arrival she was afebrile, heart rate 115, blood pressure 130/80, respiratory 18, sat 99%. Labs significant for WBC 11, hemoglobin 13, platelets 329, sodium 129, creatinine 0.72, UA unremarkable, troponin negative, BNP 2940, D-dimer 2.05. CT angio chest was negative for PE CT head s no acute abnormalities; CT C-spine negative for acute osseous abnormality. CT abdomen pelvis showed diverticulosis and perinephric fat stranding. In the ED she was given 1 L of saline. - Review of Systems Eyes: No Symptoms Ears, Nose, & Throat: No Symptoms Respiratory: No Symptoms Cardiac: Palpitations, Syncope Abdominal/Gastrointestinal: No Symptoms Genitourinary Symptoms: No Symptoms Musculoskeletal: No Symptoms Skin: No Symptoms Medications & Allergies Home Medications: Home Medication List Allopurinol 100 mg [Zyloprim 100 mg] 2 tab PO DAILY 11/02/14 [History Confirmed 06/06/23] Enalapril Maleate 20 mg PO BID 11/02/14 [History Confirmed 06/06/23] Estropipate 0.75 mg PO DAILY 11/02/14 [History Confirmed 06/06/23] Hydrochlorothiazide 25 mg [hydroDIURIL 25 MG] 25 mg PO DAILY 11/02/14 [History Confirmed 06/06/23] B-Complex with Vitamin C [Vitamin B-Complex & C] 1 tab PO DAILY 06/06/23 [History Confirmed 06/06/23] Cetirizine HCl 1 tab PO DAILY 06/06/23 [History Confirmed 06/06/23] Furosemide 20 mg [Lasix 20 mg] 1 tab PO DAILY 06/06/23 [History Confirmed 06/06/23] Metoprolol Tartrate 50 mg [Lopressor 50 MG] 0.5 tab PO BID 06/06/23 [History Confirmed 06/06/23] Rivaroxaban [Xarelto] 1 tab PO DAILY 06/06/23 [History Confirmed 06/06/23] Vit C/E/Zn/Coppr/Lutein/Zeaxan [Preservision Areds 2 Softgel] 2 cap PO DAILY 06/06/23 [History Confirmed 06/06/23] Zinc Gluconate [Zinc] 1 tab PO DAILY 06/06/23 [History Confirmed 06/06/23] Allergies/Adverse Reactions: Allergies Allergy/AdvReac Type Severity Reaction Status Date / Time meclofenamic acid Allergy Verified 06/06/23 12:42 [From Mecl[place]] naproxen Allergy Verified 06/06/23 12:42 hydrocodone AdvReac Intermediate Lightheaded Verified 06/06/23 12:42 ness - Past Medical History Past Medical History: Yes Neurological History: No Pertinent History ENT History: Macular Degeneration Cardiac History: Arrhythmia, Hypertension, Other Respiratory History: No Pertinent History Endocrine Medical History: No Pertinent History Musculoskelatal History: Osteoarthritis, Rheumatoid Arthritis GI Medical History: Diverticulitis, Diverticulosis History: No Pertinent History Pyscho-Social History: No Pertinent History Reproductive Disorders: No Pertinent History Comment: atrial fib, skin ca, carpal tunnel. Position Classification Specialist: Dr. Rodriguez - Female History Are you now?: No - Past Surgical History Past Surgical History: Yes Neuro Surgical History: No Pertinent History Cardiac History: Cardiac Catheterization Respiratory Surgery: No Pertinent History GI Surgical History: No Pertinent History Genitourinary Surgical Hx: No Pertinent History Musculskeletal Surgical Hx: Orthopedic Surgery Female Surgical History: Hysterectomy, Tubal Ligation Other Surgical History: CARPEL TUNNEL - COLONOSCOPY - ARTHROSCOPY/R KNEE, lt foot surgery, skin cancer removal - Social History Smoking Status: Never smoker Exposure to second hand smoke: No Alcohol: Occasionally Drug Use: none Significant Family History: no pertinent family hx - Physical Exam Vital Signs: Vital Signs - 24 hr Temp Pulse Resp BP BP Pulse Ox 06/06/23 19:44 97.1 F 138 H 18 137/86 100 06/06/23 19:25 99 06/06/23 19:00 120 H 12 143/103 100 06/06/23 18:00 103 H 15 122/84 99 06/06/23 17:30 113 H 18 111/82 99 06/06/23 17:00 134 H 10 L 102/85 97 06/06/23 16:45 104 H 19 108/88 100 06/06/23 15:00 114/83 06/06/23 14:30 106 H 18 119/84 97 06/06/23 14:19 127 H 17 113/72 99 06/06/23 13:30 102 H 19 141/97 98 06/06/23 13:01 105 H 18 115/86 97 06/06/23 12:31 98 F 115 H 18 130/80 99 General Appearance: no apparent distress Neurologic Exam: alert, oriented x 3 Eye Exam: PERRL/EOMI Ears, Nose, Throat Exam: normal ENT inspection Neck Exam: normal inspection Respiratory Exam: normal breath sounds Cardiovascular Exam: tachycardia, capillary refill 2-3 sec Gastrointestinal/Abdomen Exam: soft Extremity Exam: normal inspection, No pedal edema Skin Exam: normal color Results - Labs Lab/Micro Results: Lab Results-Last 24 Hours 06/06/23 06/06/23 06/06/23 Range/Units 13:22 13:35 13:40 WBC (4.0-10.5) x10^3/uL RBC (4.1-5.4) x10^6/uL Hgb (12.0-16.0) g/dL Hct (35-47) % MCV (78-100) fL MCH (26-32) pg MCHC (32-36) g/dL RDW (11.5-14.0) % Plt Count (150-450) x10^3/uL MPV (7.5-11.0) fL Gran % (36.0-66.0) % Immature Gran % (Auto) (0.00-0.4) % Nucleat RBC Rel Count (0.00-0.1) % Eos # (Auto) (0-0.5) x10^3/uL Immature Gran # (Auto) (0.00-0.03) x10^3u/L Absolute Lymphs (auto) (1.0-4.6) x10^3/uL Absolute Monos (auto) (0.0-1.3) x10^3/uL Absolute Nucleated RBC (0.00-0.01) x10^3u/L Lymphocytes % (24.0-44.0) % Monocytes % (0.0-12.0) % Eosinophils % (0.00-5.0) % Basophils % (0.0-0.4) % Absolute Granulocytes (1.4-6.9) x10^3/uL Basophils # (0-0.4) x10^3/uL ESR 36 H (0-20) mm/hr D-Dimer (0.0-0.50) mg/L Sodium (137-145) mmol/L Potassium (3.5-5.1) mmol/L Chloride (98-107) mmol/L Carbon Dioxide (22-30) mmol/L Anion Gap (5-15) MEQ/L BUN (7-17) mg/dL Creatinine (0.52-1.04) mg/dL Estimated GFR ML/MIN Glucose (74-106) mg/dL Lactic Acid 1.6 (0.4-2.0) Calcium (8.4-10.2) mg/dL Magnesium (1.6-2.3) mg/dL Total Bilirubin (0.2-1.3) mg/dL AST (14-36) U/L ALT (0-35) U/L Alkaline Phosphatase (38-126) U/L Creatine Kinase (30-135) U/L Troponin I (0.000-0.034) ng/mL NT-Pro-B Natriuret Pep (<300) pg/mL Serum Total Protein (6.3-8.2) g/dL Albumin (3.5-5.0) g/dL Amylase (30-110) U/L Lipase (23-300) U/L Thyroxine (T4) (5.53-10.96) ug/dL TSH 3rd Generation (0.47-4.68) mIU/L Urine Color Yellow (Yellow) Urine Appearance Clear (Clear) Urine pH 6.5 (4.6-8.0) Ur Specific [place] <=1.005 (1.005-1.030) Urine Protein Negative (Negative) Urine Glucose (UA) Negative (Negative) mg/dL Urine Ketones Negative (Negative) Urine Blood Negative (Negative) Urine Nitrite Negative (Negative) Urine Bilirubin Negative (Negative) Urine Urobilinogen 0.2 (0.2) mg/dL Ur Leukocyte Esterase Negative (Negative) U Hyaline Cast (Auto) NONE SEEN (0-2) /LPF Urine Microscopic RBC 0-2 (0-5) /HPF Urine Microscopic WBC 0-2 (0-5) /HPF Ur Epithelial Cells None Seen (None Seen) /HPF Urine Bacteria None Seen (None Seen) /HPF Urine Culture Reflexed NO (NO) 06/06/23 06/06/23 06/06/23 Range/Units 13:40 13:40 13:40 WBC (4.0-10.5) x10^3/uL RBC (4.1-5.4) x10^6/uL Hgb (12.0-16.0) g/dL Hct (35-47) % MCV (78-100) fL MCH (26-32) pg MCHC (32-36) g/dL RDW (11.5-14.0) % Plt Count (150-450) x10^3/uL MPV (7.5-11.0) fL Gran % (36.0-66.0) % Immature Gran % (Auto) (0.00-0.4) % Nucleat RBC Rel Count (0.00-0.1) % Eos # (Auto) (0-0.5) x10^3/uL Immature Gran # (Auto) (0.00-0.03) x10^3u/L Absolute Lymphs (auto) (1.0-4.6) x10^3/uL Absolute Monos (auto) (0.0-1.3) x10^3/uL Absolute Nucleated RBC (0.00-0.01) x10^3u/L Lymphocytes % (24.0-44.0) % Monocytes % (0.0-12.0) % Eosinophils % (0.00-5.0) % Basophils % (0.0-0.4) % Absolute Granulocytes (1.4-6.9) x10^3/uL Basophils # (0-0.4) x10^3/uL ESR (0-20) mm/hr D-Dimer 2.05 H* (0.0-0.50) mg/L Sodium 129 L (137-145) mmol/L Potassium 4.2 (3.5-5.1) mmol/L Chloride 96 L (98-107) mmol/L Carbon Dioxide 27 (22-30) mmol/L Anion Gap 10.7 (5-15) MEQ/L BUN 15 (7-17) mg/dL Creatinine 0.72 (0.52-1.04) mg/dL Estimated GFR > 60.0 ML/MIN Glucose 105 (74-106) mg/dL Lactic Acid (0.4-2.0) Calcium 8.8 (8.4-10.2) mg/dL Magnesium 1.9 (1.6-2.3) mg/dL Total Bilirubin 0.70 (0.2-1.3) mg/dL AST 43 H (14-36) U/L ALT 36 H (0-35) U/L Alkaline Phosphatase 73 (38-126) U/L Creatine Kinase 27 L (30-135) U/L Troponin I < 0.012 (0.000-0.034) ng/mL NT-Pro-B Natriuret Pep (<300) pg/mL Serum Total Protein 6.7 (6.3-8.2) g/dL Albumin 3.7 (3.5-5.0) g/dL Amylase 92 (30-110) U/L Lipase 92 (23-300) U/L Thyroxine (T4) (5.53-10.96) ug/dL TSH 3rd Generation 0.979 (0.47-4.68) mIU/L Urine Color (Yellow) Urine Appearance (Clear) Urine pH (4.6-8.0) Ur Specific [place] (1.005-1.030) Urine Protein (Negative) Urine Glucose (UA) (Negative) mg/dL Urine Ketones (Negative) Urine Blood (Negative) Urine Nitrite (Negative) Urine Bilirubin (Negative) Urine Urobilinogen (0.2) mg/dL Ur Leukocyte Esterase (Negative) U Hyaline Cast (Auto) (0-2) /LPF Urine Microscopic RBC (0-5) /HPF Urine Microscopic WBC (0-5) /HPF Ur Epithelial Cells (None Seen) /HPF Urine Bacteria (None Seen) /HPF Urine Culture Reflexed (NO) 06/06/23 06/06/23 06/06/23 Range/Units 13:40 13:40 17:08 WBC 11.1 H (4.0-10.5) x10^3/uL RBC 4.42 (4.1-5.4) x10^6/uL Hgb 13.8 (12.0-16.0) g/dL Hct 43.2 (35-47) % MCV 97.7 (78-100) fL MCH 31.2 (26-32) pg MCHC 31.9 L (32-36) g/dL RDW 13.2 (11.5-14.0) % Plt Count 329 (150-450) x10^3/uL MPV 8.9 (7.5-11.0) fL Gran % 81.1 H (36.0-66.0) % Immature Gran % (Auto) 1.2 H (0.00-0.4) % Nucleat RBC Rel Count 0.0 (0.00-0.1) % Eos # (Auto) 0.07 (0-0.5) x10^3/uL Immature Gran # (Auto) 0.13 H (0.00-0.03) x10^3u/L Absolute Lymphs (auto) 1.09 (1.0-4.6) x10^3/uL Absolute Monos (auto) 0.74 (0.0-1.3) x10^3/uL Absolute Nucleated RBC 0.00 (0.00-0.01) x10^3u/L Lymphocytes % 9.9 L (24.0-44.0) % Monocytes % 6.7 (0.0-12.0) % Eosinophils % 0.6 (0.00-5.0) % Basophils % 0.5 (0.0-0.4) % Absolute Granulocytes 8.97 H (1.4-6.9) x10^3/uL Basophils # 0.06 (0-0.4) x10^3/uL ESR (0-20) mm/hr D-Dimer (0.0-0.50) mg/L Sodium (137-145) mmol/L Potassium (3.5-5.1) mmol/L Chloride (98-107) mmol/L Carbon Dioxide (22-30) mmol/L Anion Gap (5-15) MEQ/L BUN (7-17) mg/dL Creatinine (0.52-1.04) mg/dL Estimated GFR ML/MIN Glucose (74-106) mg/dL Lactic Acid (0.4-2.0) Calcium (8.4-10.2) mg/dL Magnesium (1.6-2.3) mg/dL Total Bilirubin (0.2-1.3) mg/dL AST (14-36) U/L ALT (0-35) U/L Alkaline Phosphatase (38-126) U/L Creatine Kinase (30-135) U/L Troponin I < 0.012 (0.000-0.034) ng/mL NT-Pro-B Natriuret Pep 2940 (<300) pg/mL Serum Total Protein (6.3-8.2) g/dL Albumin (3.5-5.0) g/dL Amylase (30-110) U/L Lipase (23-300) U/L Thyroxine (T4) 7.22 (5.53-10.96) ug/dL TSH 3rd Generation (0.47-4.68) mIU/L Urine Color (Yellow) Urine Appearance (Clear) Urine pH (4.6-8.0) Ur Specific [place] (1.005-1.030) Urine Protein (Negative) Urine Glucose (UA) (Negative) mg/dL Urine Ketones (Negative) Urine Blood (Negative) Urine Nitrite (Negative) Urine Bilirubin (Negative) Urine Urobilinogen (0.2) mg/dL Ur Leukocyte Esterase (Negative) U Hyaline Cast (Auto) (0-2) /LPF Urine Microscopic RBC (0-5) /HPF Urine Microscopic WBC (0-5) /HPF Ur Epithelial Cells (None Seen) /HPF Urine Bacteria (None Seen) /HPF Urine Culture Reflexed (NO) - Radiology Impressions Radiology Exams & Impressions: Radiology Procedures Category Date Time Status ABDOMEN AND PELVIS W/0 CONTRAS [CT] Stat Exams 06/06/23 13:22 Completed CERVICAL SPINE WO CONTRAST [CT] Stat Exams 06/06/23 13:23 Completed CHEST WITH CONTRAST [CT] Stat Exams 06/06/23 14:27 Completed ECHO W/2D AND DOPPLER [US] Routine Exams 06/06/23 21:47 Ordered HEAD WITHOUT CONTRAST [CT] Stat Exams 06/06/23 13:23 Completed Assessment/Plan (1) Afib Current Visit: Yes Status: Acute Code(s): I48.91 - UNSPECIFIED ATRIAL FIBRILLATION (2) Syncope Current Visit: Yes Status: Acute Assessment & Plan: ASSESSMENT #A-fib with RVR #Syncope #Dizziness #Hyponatremia #Constipation PLAN -Monitor on telemetry -Resume metoprolol 25 mg twice daily (was having symptoms of lethargy with higher doses) -Start as needed IV metoprolol -May need to consider digoxin versus calcium channel patti if metoprolol does not control tachycardia -Maintain K greater than 4 mag greater than 2 -Follow-up sodium after IV fluids -Resume Xarelto -Echo Entire encounter performed via telemedicine Code(s): R55 - SYNCOPE AND COLLAPSE Telemedicine Encounter - Telemedicine Encounter Telemedicine Encounter: The entirety of this encounter was performed via Telemedicine"
[2023-06-06] MEDS ORDERED: XARELTO 10 MG TABLET PO SCH (22:00)
[2023-06-06] MEDS ORDERED: ENALAPRIL MALEATE 20 MG PO SCH (22:00)
[2023-06-06] MEDS: Pepcid 20 MG PO SCH (22:05)
[2023-06-06] MEDS: Vasotec 10 MG PO SCH (22:10)
[2023-06-07 04:32] LABS: Absolute Neutrophil Ct (ANC) 5.51 x10^3/uL (1.4-6.9); BASOPHIL % 0.7 % (0.0-0.4); Basophil (Absolute #) 0.06 x10^3/uL (0-0.4); Eosinophil % 1.2 % (0.00-5.0); Hematocrit 37.1 % (35-47); Hemoglobin 12.1 g/dL (12.0-16.0); IMMATURE GRAN # 0.08 x10^3u/L (0.00-0.03); Lymphocyte (Absolute #) 1.58 x10^3/uL (1.0-4.6); Lymphocytes % 19.5 % (24.0-44.0); Mean Cell Volume 94.2 fL (78-100); Mean Corpuscular Hemoglobin 30.7 pg (26-32); Mean Corpuscular Hgb Concent. 32.6 g/dL (32-36); Monocyte (Absolute #) 0.78 x10^3/uL (0.0-1.3); Monocytes % 9.6 % (0.0-12.0); Platelet Count 293 x10^3/uL (150-450); Red Blood Count 3.94 x10^6/uL (4.1-5.4); Red Cell Distribution Width 13.7 % (11.5-14.0); White Blood Count 8.1 x10^3/uL (4.0-10.5)
[2023-06-07 04:39] LABS: ANION GAP 9.3 MEQ/L (5-15); BLOOD UREA NITROGEN 20 mg/dL (7-17); CHLORIDE 99 mmol/L (98-107); Calcium 8.1 mg/dL (8.4-10.2); Carbon Dioxide 26 mmol/L (22-30); Creatinine 1 0.85 mg/dL (0.52-1.04); EST GLOMERULAR FILTRATION RATE > 60.0 ML/MIN; Glucose 97 mg/dL (74-106); MAGNESIUM 1.8 mg/dL (1.6-2.3); Potassium 4.2 mmol/L (3.5-5.1); SODIUM 130 mmol/L (137-145)
[2023-06-07] MEDS: Lopressor 50 MG PO SCH ×2 (07:10→08:28)
[2023-06-07] MEDS: Pepcid 20 MG PO SCH (08:28)
[2023-06-07] MEDS: Vasotec 10 MG PO SCH (08:28)
--- NOTE | 2023-06-07 08:34 | PCM.NOTE ---
Date and Time: 06/07/23 0822 Subjective Assessment: This is a 72-year-old female admitted to the hospital for evaluation of syncope. She has history of A-fib on anticoagulation. She presented to the ED on 06/06 after a syncopal episode several days ago associated with episode of constipation and straining. She reports since then she has felt weak and having episodes of feeling dizzy, and diaphoretic which has been associated with tachycardia. She came to the ED due to persistent episodes. CT angio chest was negative for PE but did show COPD and mild cardiomegaly and pericardial effusion. An echo was ordered for further evaluation. Tele-cardiology consulted. She follows Dr. Kaba OP. CT head shows no acute abnormalities. CT C-spine negative for acute osseous abnormality. CT abdomen pelvis showed diverticulosis and perinephric fat stranding. HR now controlled and pt explained she is feeling much better today. She reports recently feeling ill when visiting her daughter in [place] but attributed this to allergies. She denies CP, SOB, Abd. pain, N/V/D. - Review of Systems Constitutional: No Fever, No Chills Eyes: No Symptoms Ears, Nose, & Throat: No Symptoms Respiratory: No Cough, No Short Of Breath Cardiac: No Chest Pain, No Edema, No Syncope Abdominal/Gastrointestinal: No Abdominal Pain, No Nausea, No Vomiting, No Diarrhea Genitourinary Symptoms: No Dysuria Musculoskeletal: No Back Pain, No Neck Pain Skin: No Rash Neurological: No Dizziness, No Focal Weakness, No Sensory Changes Psychological: No Symptoms Endocrine: No Symptoms Hematologic/Lymphatic: No Symptoms Immunological/Allergic: No Symptoms Objective Exam General Appearance: no apparent distress, alert Neurologic Exam: alert, oriented x 3, cooperative, normal mood/affect, nml cerebellar function, sensation nml, No motor deficits Skin Exam: normal color, warm, dry Eye Exam: PERRL, EOMI, eyes nml inspection Ears, Nose, Throat Exam: normal ENT inspection, pharynx normal, moist mucous membranes Neck Exam: normal inspection, non-tender, supple, full range of motion Respiratory Exam: normal breath sounds, lungs clear, No respiratory distress Cardiovascular Exam: other (muffled heart sounds, irregular rate- afib) Gastrointestinal/Abdomen Exam: soft, No tenderness, No mass Extremity Exam: normal inspection, normal range of motion Back Exam: normal inspection, normal range of motion, No CVA tenderness, No vertebral tenderness Pelvic Exam: deferred Rectal Exam: deferred OBJECTIVE DATA Vital Signs: Vital Signs - 24 hr Temp Pulse Resp BP BP Pulse Ox 06/07/23 07:07 98.0 F 91 H 18 134/88 98 06/07/23 04:00 97.3 F 88 17 132/60 99 06/06/23 23:59 97.5 F 111 H 18 109/72 99 06/06/23 23:35 109 H 18 99 06/06/23 20:00 112 H 100 06/06/23 19:44 97.1 F 138 H 18 137/86 100 06/06/23 19:25 99 06/06/23 19:00 120 H 12 143/103 100 06/06/23 18:00 103 H 15 122/84 99 06/06/23 17:30 113 H 18 111/82 99 06/06/23 17:00 134 H 10 L 102/85 97 06/06/23 16:45 104 H 19 108/88 100 06/06/23 15:00 114/83 06/06/23 14:30 106 H 18 119/84 97 06/06/23 14:19 127 H 17 113/72 99 06/06/23 13:30 102 H 19 141/97 98 06/06/23 13:01 105 H 18 115/86 97 06/06/23 12:31 98 F 115 H 18 130/80 99 Pain Assessment - Last Documented Pain Intensity 0 Intake and Output: Intake & Output 06/04/23 06/05/23 06/06/23 06/07/23 11:59 11:59 11:59 11:59 Intake Total 1120 Output Total 950 Balance 170 Weight 69 kg Lab Results: Lab Results-Last 24 Hours 06/06/23 06/06/23 06/06/23 Range/Units 13:22 13:35 13:40 WBC (4.0-10.5) x10^3/uL RBC (4.1-5.4) x10^6/uL Hgb (12.0-16.0) g/dL Hct (35-47) % MCV (78-100) fL MCH (26-32) pg MCHC (32-36) g/dL RDW (11.5-14.0) % Plt Count (150-450) x10^3/uL MPV (7.5-11.0) fL Gran % (36.0-66.0) % Immature Gran % (Auto) (0.00-0.4) % Nucleat RBC Rel Count (0.00-0.1) % Eos # (Auto) (0-0.5) x10^3/uL Immature Gran # (Auto) (0.00-0.03) x10^3u/L Absolute Lymphs (auto) (1.0-4.6) x10^3/uL Absolute Monos (auto) (0.0-1.3) x10^3/uL Absolute Nucleated RBC (0.00-0.01) x10^3u/L Lymphocytes % (24.0-44.0) % Monocytes % (0.0-12.0) % Eosinophils % (0.00-5.0) % Basophils % (0.0-0.4) % Absolute Granulocytes (1.4-6.9) x10^3/uL Basophils # (0-0.4) x10^3/uL ESR 36 H (0-20) mm/hr D-Dimer (0.0-0.50) mg/L Sodium (137-145) mmol/L Potassium (3.5-5.1) mmol/L Chloride (98-107) mmol/L Carbon Dioxide (22-30) mmol/L Anion Gap (5-15) MEQ/L BUN (7-17) mg/dL Creatinine (0.52-1.04) mg/dL Estimated GFR ML/MIN Glucose (74-106) mg/dL Lactic Acid 1.6 (0.4-2.0) Calcium (8.4-10.2) mg/dL Magnesium (1.6-2.3) mg/dL Total Bilirubin (0.2-1.3) mg/dL AST (14-36) U/L ALT (0-35) U/L Alkaline Phosphatase (38-126) U/L Creatine Kinase (30-135) U/L Troponin I (0.000-0.034) ng/mL NT-Pro-B Natriuret Pep (<300) pg/mL Serum Total Protein (6.3-8.2) g/dL Albumin (3.5-5.0) g/dL Amylase (30-110) U/L Lipase (23-300) U/L Thyroxine (T4) (5.53-10.96) ug/dL TSH 3rd Generation (0.47-4.68) mIU/L Urine Color Yellow (Yellow) Urine Appearance Clear (Clear) Urine pH 6.5 (4.6-8.0) Ur Specific Sharon <=1.005 (1.005-1.030) Urine Protein Negative (Negative) Urine Glucose (UA) Negative (Negative) mg/dL Urine Ketones Negative (Negative) Urine Blood Negative (Negative) Urine Nitrite Negative (Negative) Urine Bilirubin Negative (Negative) Urine Urobilinogen 0.2 (0.2) mg/dL Ur Leukocyte Esterase Negative (Negative) U Hyaline Cast (Auto) NONE SEEN (0-2) /LPF Urine Microscopic RBC 0-2 (0-5) /HPF Urine Microscopic WBC 0-2 (0-5) /HPF Ur Epithelial Cells None Seen (None Seen) /HPF Urine Bacteria None Seen (None Seen) /HPF Urine Culture Reflexed NO (NO) 06/06/23 06/06/23 06/06/23 Range/Units 13:40 13:40 13:40 WBC (4.0-10.5) x10^3/uL RBC (4.1-5.4) x10^6/uL Hgb (12.0-16.0) g/dL Hct (35-47) % MCV (78-100) fL MCH (26-32) pg MCHC (32-36) g/dL RDW (11.5-14.0) % Plt Count (150-450) x10^3/uL MPV (7.5-11.0) fL Gran % (36.0-66.0) % Immature Gran % (Auto) (0.00-0.4) % Nucleat RBC Rel Count (0.00-0.1) % Eos # (Auto) (0-0.5) x10^3/uL Immature Gran # (Auto) (0.00-0.03) x10^3u/L Absolute Lymphs (auto) (1.0-4.6) x10^3/uL Absolute Monos (auto) (0.0-1.3) x10^3/uL Absolute Nucleated RBC (0.00-0.01) x10^3u/L Lymphocytes % (24.0-44.0) % Monocytes % (0.0-12.0) % Eosinophils % (0.00-5.0) % Basophils % (0.0-0.4) % Absolute Granulocytes (1.4-6.9) x10^3/uL Basophils # (0-0.4) x10^3/uL ESR (0-20) mm/hr D-Dimer 2.05 H* (0.0-0.50) mg/L Sodium 129 L (137-145) mmol/L Potassium 4.2 (3.5-5.1) mmol/L Chloride 96 L (98-107) mmol/L Carbon Dioxide 27 (22-30) mmol/L Anion Gap 10.7 (5-15) MEQ/L BUN 15 (7-17) mg/dL Creatinine 0.72 (0.52-1.04) mg/dL Estimated GFR > 60.0 ML/MIN Glucose 105 (74-106) mg/dL Lactic Acid (0.4-2.0) Calcium 8.8 (8.4-10.2) mg/dL Magnesium 1.9 (1.6-2.3) mg/dL Total Bilirubin 0.70 (0.2-1.3) mg/dL AST 43 H (14-36) U/L ALT 36 H (0-35) U/L Alkaline Phosphatase 73 (38-126) U/L Creatine Kinase 27 L (30-135) U/L Troponin I < 0.012 (0.000-0.034) ng/mL NT-Pro-B Natriuret Pep (<300) pg/mL Serum Total Protein 6.7 (6.3-8.2) g/dL Albumin 3.7 (3.5-5.0) g/dL Amylase 92 (30-110) U/L Lipase 92 (23-300) U/L Thyroxine (T4) (5.53-10.96) ug/dL TSH 3rd Generation 0.979 (0.47-4.68) mIU/L Urine Color (Yellow) Urine Appearance (Clear) Urine pH (4.6-8.0) Ur Specific Sharon (1.005-1.030) Urine Protein (Negative) Urine Glucose (UA) (Negative) mg/dL Urine Ketones (Negative) Urine Blood (Negative) Urine Nitrite (Negative) Urine Bilirubin (Negative) Urine Urobilinogen (0.2) mg/dL Ur Leukocyte Esterase (Negative) U Hyaline Cast (Auto) (0-2) /LPF Urine Microscopic RBC (0-5) /HPF Urine Microscopic WBC (0-5) /HPF Ur Epithelial Cells (None Seen) /HPF Urine Bacteria (None Seen) /HPF Urine Culture Reflexed (NO) 06/06/23 06/06/23 06/06/23 Range/Units 13:40 13:40 17:08 WBC 11.1 H (4.0-10.5) x10^3/uL RBC 4.42 (4.1-5.4) x10^6/uL Hgb 13.8 (12.0-16.0) g/dL Hct 43.2 (35-47) % MCV 97.7 (78-100) fL MCH 31.2 (26-32) pg MCHC 31.9 L (32-36) g/dL RDW 13.2 (11.5-14.0) % Plt Count 329 (150-450) x10^3/uL MPV 8.9 (7.5-11.0) fL Gran % 81.1 H (36.0-66.0) % Immature Gran % (Auto) 1.2 H (0.00-0.4) % Nucleat RBC Rel Count 0.0 (0.00-0.1) % Eos # (Auto) 0.07 (0-0.5) x10^3/uL Immature Gran # (Auto) 0.13 H (0.00-0.03) x10^3u/L Absolute Lymphs (auto) 1.09 (1.0-4.6) x10^3/uL Absolute Monos (auto) 0.74 (0.0-1.3) x10^3/uL Absolute Nucleated RBC 0.00 (0.00-0.01) x10^3u/L Lymphocytes % 9.9 L (24.0-44.0) % Monocytes % 6.7 (0.0-12.0) % Eosinophils % 0.6 (0.00-5.0) % Basophils % 0.5 (0.0-0.4) % Absolute Granulocytes 8.97 H (1.4-6.9) x10^3/uL Basophils # 0.06 (0-0.4) x10^3/uL ESR (0-20) mm/hr D-Dimer (0.0-0.50) mg/L Sodium (137-145) mmol/L Potassium (3.5-5.1) mmol/L Chloride (98-107) mmol/L Carbon Dioxide (22-30) mmol/L Anion Gap (5-15) MEQ/L BUN (7-17) mg/dL Creatinine (0.52-1.04) mg/dL Estimated GFR ML/MIN Glucose (74-106) mg/dL Lactic Acid (0.4-2.0) Calcium (8.4-10.2) mg/dL Magnesium (1.6-2.3) mg/dL Total Bilirubin (0.2-1.3) mg/dL AST (14-36) U/L ALT (0-35) U/L Alkaline Phosphatase (38-126) U/L Creatine Kinase (30-135) U/L Troponin I < 0.012 (0.000-0.034) ng/mL NT-Pro-B Natriuret Pep 2940 (<300) pg/mL Serum Total Protein (6.3-8.2) g/dL Albumin (3.5-5.0) g/dL Amylase (30-110) U/L Lipase (23-300) U/L Thyroxine (T4) 7.22 (5.53-10.96) ug/dL TSH 3rd Generation (0.47-4.68) mIU/L Urine Color (Yellow) Urine Appearance (Clear) Urine pH (4.6-8.0) Ur Specific Sharon (1.005-1.030) Urine Protein (Negative) Urine Glucose (UA) (Negative) mg/dL Urine Ketones (Negative) Urine Blood (Negative) Urine Nitrite (Negative) Urine Bilirubin (Negative) Urine Urobilinogen (0.2) mg/dL Ur Leukocyte Esterase (Negative) U Hyaline Cast (Auto) (0-2) /LPF Urine Microscopic RBC (0-5) /HPF Urine Microscopic WBC (0-5) /HPF Ur Epithelial Cells (None Seen) /HPF Urine Bacteria (None Seen) /HPF Urine Culture Reflexed (NO) 06/06/23 06/07/23 06/07/23 Range/Units 21:30 04:20 04:20 WBC 8.1 (4.0-10.5) x10^3/uL RBC 3.94 L (4.1-5.4) x10^6/uL Hgb 12.1 (12.0-16.0) g/dL Hct 37.1 (35-47) % MCV 94.2 (78-100) fL MCH 30.7 (26-32) pg MCHC 32.6 (32-36) g/dL RDW 13.7 (11.5-14.0) % Plt Count 293 (150-450) x10^3/uL MPV 9.0 (7.5-11.0) fL Gran % 68.0 H (36.0-66.0) % Immature Gran % (Auto) 1.0 H (0.00-0.4) % Nucleat RBC Rel Count 0.0 (0.00-0.1) % Eos # (Auto) 0.10 (0-0.5) x10^3/uL Immature Gran # (Auto) 0.08 H (0.00-0.03) x10^3u/L Absolute Lymphs (auto) 1.58 (1.0-4.6) x10^3/uL Absolute Monos (auto) 0.78 (0.0-1.3) x10^3/uL Absolute Nucleated RBC 0.00 (0.00-0.01) x10^3u/L Lymphocytes % 19.5 L (24.0-44.0) % Monocytes % 9.6 (0.0-12.0) % Eosinophils % 1.2 (0.00-5.0) % Basophils % 0.7 (0.0-0.4) % Absolute Granulocytes 5.51 (1.4-6.9) x10^3/uL Basophils # 0.06 (0-0.4) x10^3/uL ESR (0-20) mm/hr D-Dimer (0.0-0.50) mg/L Sodium 130 L (137-145) mmol/L Potassium 4.2 (3.5-5.1) mmol/L Chloride 99 (98-107) mmol/L Carbon Dioxide 26 (22-30) mmol/L Anion Gap 9.3 (5-15) MEQ/L BUN 20 H (7-17) mg/dL Creatinine 0.85 (0.52-1.04) mg/dL Estimated GFR > 60.0 ML/MIN Glucose 97 (74-106) mg/dL Lactic Acid (0.4-2.0) Calcium 8.1 L (8.4-10.2) mg/dL Magnesium 1.8 (1.6-2.3) mg/dL Total Bilirubin (0.2-1.3) mg/dL AST (14-36) U/L ALT (0-35) U/L Alkaline Phosphatase (38-126) U/L Creatine Kinase (30-135) U/L Troponin I < 0.012 (0.000-0.034) ng/mL NT-Pro-B Natriuret Pep (<300) pg/mL Serum Total Protein (6.3-8.2) g/dL Albumin (3.5-5.0) g/dL Amylase (30-110) U/L Lipase (23-300) U/L Thyroxine (T4) (5.53-10.96) ug/dL TSH 3rd Generation (0.47-4.68) mIU/L Urine Color (Yellow) Urine Appearance (Clear) Urine pH (4.6-8.0) Ur Specific Sharon (1.005-1.030) Urine Protein (Negative) Urine Glucose (UA) (Negative) mg/dL Urine Ketones (Negative) Urine Blood (Negative) Urine Nitrite (Negative) Urine Bilirubin (Negative) Urine Urobilinogen (0.2) mg/dL Ur Leukocyte Esterase (Negative) U Hyaline Cast (Auto) (0-2) /LPF Urine Microscopic RBC (0-5) /HPF Urine Microscopic WBC (0-5) /HPF Ur Epithelial Cells (None Seen) /HPF Urine Bacteria (None Seen) /HPF Urine Culture Reflexed (NO) Radiology Exams: Radiology Procedures Category Date Time Status ABDOMEN AND PELVIS W/0 CONTRAS [CT] Stat Exams 06/06/23 13:22 Completed CERVICAL SPINE WO CONTRAST [CT] Stat Exams 06/06/23 13:23 Completed CHEST WITH CONTRAST [CT] Stat Exams 06/06/23 14:27 Completed ECHO W/2D AND DOPPLER [US] Routine Exams 06/06/23 21:47 Ordered HEAD WITHOUT CONTRAST [CT] Stat Exams 06/06/23 13:23 Completed Assessment/Plan (1) Syncope Current Visit: Yes Status: Acute Assessment & Plan: - Chest CT 06/06: No radiological evidence of pulmonary embolism. Picture suggesting air entrapment (COPD), for clinical correlation. Few calcified pulmonary granulomas. Mild cardiomegaly and pericardial effusion. - Echo pending - Cardiology consult - Head CT 06/06: Senile brain parenchymal involutional changes and mild white matter microvascular ischemic changes. No intracranial hematoma, established ischemic territorial infarction, mass affect or acute bony injury. Clinical correlation advised for further evaluation. - Cervical spine CT 06/06: IMPRESSION: In setting of explained clinical trauma, no acute osseous abnormality. 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 Multilevel disc migratory and degenerative spinal change related bony canal and foraminal narrowing is noted. C3-4 3 mm circumferential disc-ossified spurring, ventral thecal effacement and mild bony foraminal narrowing bilaterally. C4-5: 4.5 mm circumferential disc-ossified spurring, mild central canal stenosis and bilateral bony neural foraminal moderate narrowing. C5-6: 5 mm circumferential disc-ossified spurring, mild central canal stenosis and bilateral bony neural foraminal moderate narrowing. C6-7: 3 mm circumferential disc-ossified spurring, ventral thecal effacement, bilateral bony neural foraminal mild narrowing. Clinical correlation recommended. Code(s): R55 - SYNCOPE AND COLLAPSE (2) Uncontrolled atrial fibrillation Current Visit: Yes Status: Acute Assessment & Plan: - tele -Resume metoprolol 25 mg twice daily (was having symptoms of lethargy with higher doses) -Start as needed IV metoprolol -May need to consider digoxin versus calcium channel patti if metoprolol does not control tachycardia -Maintain K greater than 4 mag greater than 2 -Follow-up sodium after IV fluids- 130 -Resume Xarelto 06/07 -Echo- pending - resolved -Trop x3 negative - Cardiology consulted - Mag 1.8- replacement ordered Code(s): I48.91 - UNSPECIFIED ATRIAL FIBRILLATION (3) Hyponatremia Current Visit: Yes Status: Acute Assessment & Plan: - Mild Na+ 130 Code(s): E87.1 - HYPO-OSMOLALITY AND HYPONATREMIA (4) Constipation Current Visit: Yes Status: Acute Assessment & Plan: - Docusate 100mg BID PRN - CT abd/ pelvis 06/06: Colonic diverticulosis sigmoid colonic predominance with early acute sigmoid diverticulitis. Clinical correlation is recommended. Hepatosplenic calcifications ? granulomas. Perinephric fat stranding seen around both kidneys with mild cortical scarring bilaterally. The findings suggest medical nephropathy versus UTI, for clinical correlation and workup as indicated, Code(s): K59.00 - CONSTIPATION, UNSPECIFIED
[2023-06-07] MEDS ORDERED: MAG-OX 400 PO ONE (08:46)
[2023-06-07] MEDS ORDERED: MEDICATION INTERVENTION MC SCH (09:15)
[2023-06-07] MEDS ORDERED: Ocuvite Tablet PO SCH (10:00)
[2023-06-07] MEDS ORDERED: VITA-BEE WITH C PO SCH (10:00)
[2023-06-07] MEDS ORDERED: NON-FORMULARY ITEM (Rivaroxaban [Xarelto] 20 MG Tablet) PO SCH (10:00)
[2023-06-07] MEDS ORDERED: ESTROPIPATE 0.75 MG PO SCH (10:00)
[2023-06-07] MEDS ORDERED: NON-FORMULARY ITEM (Zinc Gluconate 50 MG Tablet) PO SCH (10:00)
[2023-06-07] MEDS ORDERED: ZYLOPRIM 100 MG PO SCH (10:00)
[2023-06-07] MEDS ORDERED: CLARITIN 10 MG PO SCH (10:00)
[2023-06-07] MEDS ORDERED: NON-FORMULARY ITEM (Cetirizine Hcl [Cetirizine Hcl] 10 MG Tablet) PO SCH (10:00)
[2023-06-07] MEDS ORDERED: hydroDIURIL 25 MG PO SCH (10:00)
[2023-06-07] MEDS ORDERED: NON-FORMULARY ITEM (Vit C/E/Zn/Coppr/Lutein/Zeaxan [Preservision Areds 2 Softgel] 1 EACH C PO SCH (10:00)
[2023-06-07] MEDS ORDERED: Zinc Gluconate 50 MG PO SCH (10:00)
[2023-06-07] MEDS ORDERED: LASIX 20 MG PO SCH (10:00)
[2023-06-07] MEDS ORDERED: B COMPLEX WITH VITAMIN C PO SCH (10:00)
[2023-06-07] MEDS: PATIENT OWN MEDICATION PO SCH ×2 (10:01→10:14)
[2023-06-07 11:52] VITALS: BP 124/60; PULSE 99; RESP 17; TEMP 97.2; O2SAT 96
--- NOTE | 2023-06-07 13:59 | PCM.DS ---
Discharge Summary Date of Admission: 06/06/23 19:44 Date of Discharge: 06/07/23 Admitting Physician: YSABEL TIAN MD Consults: Consults on Case 06/07/23 07:53 Consult Cardiology ROUTINE Primary Care Provider: RUSTAM WILLIS Allergies Allergies meclofenamic acid [From Meclomen] Allergy (Verified 06/06/23 12:42) naproxen Allergy (Verified 06/06/23 12:42) hydrocodone Adverse Reaction (Intermediate, Verified 06/06/23 12:42) [facility] Summary - Hospital Course Hospital Course: This is a 72-year-old female admitted to the hospital for evaluation of syncope. She has history of A-fib on anticoagulation. She presented to the ED on 06/06 after a syncopal episode several days ago associated with episode of constipation and straining. She reports since then she has felt weak and having episodes of feeling dizzy, and diaphoretic which has been associated with tachycardia. She came to the ED due to persistent episodes. CT angio chest was negative for PE but did show COPD and mild cardiomegaly and pericardial effusion. An echo was ordered for further evaluation. Tele-cardiology consulted. She follows Dr. Lee OP. CT head shows no acute abnormalities. CT C-spine negative for acute osseous abnormality. CT abdomen pelvis showed diverticulosis and perinephric fat stranding. HR now controlled and pt explained she is feeling much better today. She reports recently feeling ill when visiting her daughter in [place] but attributed this to allergies. She denies CP, SOB, Abd. pain, N/V/D. Cardiology OK with D/C today and will f/u OP. - Vitals & Intake/Output Vital Signs: Vital Signs Temperature 97.2 F 06/07/23 11:51 Pulse Rate 99 H 06/07/23 11:51 Respiratory Rate 17 06/07/23 11:51 Blood Pressure 124/60 06/07/23 11:51 O2 Sat by Pulse Oximetry 96 06/07/23 11:51 Intake & Output: Intake & Output 06/05/23 06/06/23 06/07/23 06/08/23 11:59 11:59 11:59 11:59 Intake Total 1600 240 Output Total 950 Balance 650 240 Weight 69 kg - Lab Result Diagrams: 06/07/23 04:20 06/07/23 04:20 Lab Results-Last 24 Hrs: Lab Results-Last 24 Hours 06/06/23 06/06/23 06/06/23 Range/Units 13:22 13:40 13:40 WBC (4.0-10.5) x10^3/uL RBC (4.1-5.4) x10^6/uL Hgb (12.0-16.0) g/dL Hct (35-47) % MCV (78-100) fL MCH (26-32) pg MCHC (32-36) g/dL RDW (11.5-14.0) % Plt Count (150-450) x10^3/uL MPV (7.5-11.0) fL Gran % (36.0-66.0) % Immature Gran % (Auto) (0.00-0.4) % Nucleat RBC Rel Count (0.00-0.1) % Eos # (Auto) (0-0.5) x10^3/uL Immature Gran # (Auto) (0.00-0.03) x10^3u/L Absolute Lymphs (auto) (1.0-4.6) x10^3/uL Absolute Monos (auto) (0.0-1.3) x10^3/uL Absolute Nucleated RBC (0.00-0.01) x10^3u/L Lymphocytes % (24.0-44.0) % Monocytes % (0.0-12.0) % Eosinophils % (0.00-5.0) % Basophils % (0.0-0.4) % Absolute Granulocytes (1.4-6.9) x10^3/uL Basophils # (0-0.4) x10^3/uL ESR 36 H (0-20) mm/hr D-Dimer (0.0-0.50) mg/L Sodium 129 L (137-145) mmol/L Potassium 4.2 (3.5-5.1) mmol/L Chloride 96 L (98-107) mmol/L Carbon Dioxide 27 (22-30) mmol/L Anion Gap 10.7 (5-15) MEQ/L BUN 15 (7-17) mg/dL Creatinine 0.72 (0.52-1.04) mg/dL Estimated GFR > 60.0 ML/MIN Glucose 105 (74-106) mg/dL Calcium 8.8 (8.4-10.2) mg/dL Magnesium 1.9 (1.6-2.3) mg/dL Total Bilirubin 0.70 (0.2-1.3) mg/dL AST 43 H (14-36) U/L ALT 36 H (0-35) U/L Alkaline Phosphatase 73 (38-126) U/L Creatine Kinase 27 L (30-135) U/L Troponin I (0.000-0.034) ng/mL NT-Pro-B Natriuret Pep (<300) pg/mL Serum Total Protein 6.7 (6.3-8.2) g/dL Albumin 3.7 (3.5-5.0) g/dL Amylase 92 (30-110) U/L Lipase 92 (23-300) U/L Thyroxine (T4) (5.53-10.96) ug/dL TSH 3rd Generation 0.979 (0.47-4.68) mIU/L Urine Color Yellow (Yellow) Urine Appearance Clear (Clear) Urine pH 6.5 (4.6-8.0) Ur Specific [place] <=1.005 (1.005-1.030) Urine Protein Negative (Negative) Urine Glucose (UA) Negative (Negative) mg/dL Urine Ketones Negative (Negative) Urine Blood Negative (Negative) Urine Nitrite Negative (Negative) Urine Bilirubin Negative (Negative) Urine Urobilinogen 0.2 (0.2) mg/dL Ur Leukocyte Esterase Negative (Negative) U Hyaline Cast (Auto) NONE SEEN (0-2) /LPF Urine Microscopic RBC 0-2 (0-5) /HPF Urine Microscopic WBC 0-2 (0-5) /HPF Ur Epithelial Cells None Seen (None Seen) /HPF Urine Bacteria None Seen (None Seen) /HPF Urine Culture Reflexed NO (NO) 06/06/23 06/06/23 06/06/23 Range/Units 13:40 13:40 13:40 WBC (4.0-10.5) x10^3/uL RBC (4.1-5.4) x10^6/uL Hgb (12.0-16.0) g/dL Hct (35-47) % MCV (78-100) fL MCH (26-32) pg MCHC (32-36) g/dL RDW (11.5-14.0) % Plt Count (150-450) x10^3/uL MPV (7.5-11.0) fL Gran % (36.0-66.0) % Immature Gran % (Auto) (0.00-0.4) % Nucleat RBC Rel Count (0.00-0.1) % Eos # (Auto) (0-0.5) x10^3/uL Immature Gran # (Auto) (0.00-0.03) x10^3u/L Absolute Lymphs (auto) (1.0-4.6) x10^3/uL Absolute Monos (auto) (0.0-1.3) x10^3/uL Absolute Nucleated RBC (0.00-0.01) x10^3u/L Lymphocytes % (24.0-44.0) % Monocytes % (0.0-12.0) % Eosinophils % (0.00-5.0) % Basophils % (0.0-0.4) % Absolute Granulocytes (1.4-6.9) x10^3/uL Basophils # (0-0.4) x10^3/uL ESR (0-20) mm/hr D-Dimer 2.05 H* (0.0-0.50) mg/L Sodium (137-145) mmol/L Potassium (3.5-5.1) mmol/L Chloride (98-107) mmol/L Carbon Dioxide (22-30) mmol/L Anion Gap (5-15) MEQ/L BUN (7-17) mg/dL Creatinine (0.52-1.04) mg/dL Estimated GFR ML/MIN Glucose (74-106) mg/dL Calcium (8.4-10.2) mg/dL Magnesium (1.6-2.3) mg/dL Total Bilirubin (0.2-1.3) mg/dL AST (14-36) U/L ALT (0-35) U/L Alkaline Phosphatase (38-126) U/L Creatine Kinase (30-135) U/L Troponin I < 0.012 (0.000-0.034) ng/mL NT-Pro-B Natriuret Pep 2940 (<300) pg/mL Serum Total Protein (6.3-8.2) g/dL Albumin (3.5-5.0) g/dL Amylase (30-110) U/L Lipase (23-300) U/L Thyroxine (T4) 7.22 (5.53-10.96) ug/dL TSH 3rd Generation (0.47-4.68) mIU/L Urine Color (Yellow) Urine Appearance (Clear) Urine pH (4.6-8.0) Ur Specific [place] (1.005-1.030) Urine Protein (Negative) Urine Glucose (UA) (Negative) mg/dL Urine Ketones (Negative) Urine Blood (Negative) Urine Nitrite (Negative) Urine Bilirubin (Negative) Urine Urobilinogen (0.2) mg/dL Ur Leukocyte Esterase (Negative) U Hyaline Cast (Auto) (0-2) /LPF Urine Microscopic RBC (0-5) /HPF Urine Microscopic WBC (0-5) /HPF Ur Epithelial Cells (None Seen) /HPF Urine Bacteria (None Seen) /HPF Urine Culture Reflexed (NO) 06/06/23 06/06/23 06/07/23 Range/Units 17:08 21:30 04:20 WBC 8.1 (4.0-10.5) x10^3/uL RBC 3.94 L (4.1-5.4) x10^6/uL Hgb 12.1 (12.0-16.0) g/dL Hct 37.1 (35-47) % MCV 94.2 (78-100) fL MCH 30.7 (26-32) pg MCHC 32.6 (32-36) g/dL RDW 13.7 (11.5-14.0) % Plt Count 293 (150-450) x10^3/uL MPV 9.0 (7.5-11.0) fL Gran % 68.0 H (36.0-66.0) % Immature Gran % (Auto) 1.0 H (0.00-0.4) % Nucleat RBC Rel Count 0.0 (0.00-0.1) % Eos # (Auto) 0.10 (0-0.5) x10^3/uL Immature Gran # (Auto) 0.08 H (0.00-0.03) x10^3u/L Absolute Lymphs (auto) 1.58 (1.0-4.6) x10^3/uL Absolute Monos (auto) 0.78 (0.0-1.3) x10^3/uL Absolute Nucleated RBC 0.00 (0.00-0.01) x10^3u/L Lymphocytes % 19.5 L (24.0-44.0) % Monocytes % 9.6 (0.0-12.0) % Eosinophils % 1.2 (0.00-5.0) % Basophils % 0.7 (0.0-0.4) % Absolute Granulocytes 5.51 (1.4-6.9) x10^3/uL Basophils # 0.06 (0-0.4) x10^3/uL ESR (0-20) mm/hr D-Dimer (0.0-0.50) mg/L Sodium (137-145) mmol/L Potassium (3.5-5.1) mmol/L Chloride (98-107) mmol/L Carbon Dioxide (22-30) mmol/L Anion Gap (5-15) MEQ/L BUN (7-17) mg/dL Creatinine (0.52-1.04) mg/dL Estimated GFR ML/MIN Glucose (74-106) mg/dL Calcium (8.4-10.2) mg/dL Magnesium (1.6-2.3) mg/dL Total Bilirubin (0.2-1.3) mg/dL AST (14-36) U/L ALT (0-35) U/L Alkaline Phosphatase (38-126) U/L Creatine Kinase (30-135) U/L Troponin I < 0.012 < 0.012 (0.000-0.034) ng/mL NT-Pro-B Natriuret Pep (<300) pg/mL Serum Total Protein (6.3-8.2) g/dL Albumin (3.5-5.0) g/dL Amylase (30-110) U/L Lipase (23-300) U/L Thyroxine (T4) (5.53-10.96) ug/dL TSH 3rd Generation (0.47-4.68) mIU/L Urine Color (Yellow) Urine Appearance (Clear) Urine pH (4.6-8.0) Ur Specific [place] (1.005-1.030) Urine Protein (Negative) Urine Glucose (UA) (Negative) mg/dL Urine Ketones (Negative) Urine Blood (Negative) Urine Nitrite (Negative) Urine Bilirubin (Negative) Urine Urobilinogen (0.2) mg/dL Ur Leukocyte Esterase (Negative) U Hyaline Cast (Auto) (0-2) /LPF Urine Microscopic RBC (0-5) /HPF Urine Microscopic WBC (0-5) /HPF Ur Epithelial Cells (None Seen) /HPF Urine Bacteria (None Seen) /HPF Urine Culture Reflexed (NO) 06/07/23 Range/Units 04:20 WBC (4.0-10.5) x10^3/uL RBC (4.1-5.4) x10^6/uL Hgb (12.0-16.0) g/dL Hct (35-47) % MCV (78-100) fL MCH (26-32) pg MCHC (32-36) g/dL RDW (11.5-14.0) % Plt Count (150-450) x10^3/uL MPV (7.5-11.0) fL Gran % (36.0-66.0) % Immature Gran % (Auto) (0.00-0.4) % Nucleat RBC Rel Count (0.00-0.1) % Eos # (Auto) (0-0.5) x10^3/uL Immature Gran # (Auto) (0.00-0.03) x10^3u/L Absolute Lymphs (auto) (1.0-4.6) x10^3/uL Absolute Monos (auto) (0.0-1.3) x10^3/uL Absolute Nucleated RBC (0.00-0.01) x10^3u/L Lymphocytes % (24.0-44.0) % Monocytes % (0.0-12.0) % Eosinophils % (0.00-5.0) % Basophils % (0.0-0.4) % Absolute Granulocytes (1.4-6.9) x10^3/uL Basophils # (0-0.4) x10^3/uL ESR (0-20) mm/hr D-Dimer (0.0-0.50) mg/L Sodium 130 L (137-145) mmol/L Potassium 4.2 (3.5-5.1) mmol/L Chloride 99 (98-107) mmol/L Carbon Dioxide 26 (22-30) mmol/L Anion Gap 9.3 (5-15) MEQ/L BUN 20 H (7-17) mg/dL Creatinine 0.85 (0.52-1.04) mg/dL Estimated GFR > 60.0 ML/MIN Glucose 97 (74-106) mg/dL Calcium 8.1 L (8.4-10.2) mg/dL Magnesium 1.8 (1.6-2.3) mg/dL Total Bilirubin (0.2-1.3) mg/dL AST (14-36) U/L ALT (0-35) U/L Alkaline Phosphatase (38-126) U/L Creatine Kinase (30-135) U/L Troponin I (0.000-0.034) ng/mL NT-Pro-B Natriuret Pep (<300) pg/mL Serum Total Protein (6.3-8.2) g/dL Albumin (3.5-5.0) g/dL Amylase (30-110) U/L Lipase (23-300) U/L Thyroxine (T4) (5.53-10.96) ug/dL TSH 3rd Generation (0.47-4.68) mIU/L Urine Color (Yellow) Urine Appearance (Clear) Urine pH (4.6-8.0) Ur Specific [place] (1.005-1.030) Urine Protein (Negative) Urine Glucose (UA) (Negative) mg/dL Urine Ketones (Negative) Urine Blood (Negative) Urine Nitrite (Negative) Urine Bilirubin (Negative) Urine Urobilinogen (0.2) mg/dL Ur Leukocyte Esterase (Negative) U Hyaline Cast (Auto) (0-2) /LPF Urine Microscopic RBC (0-5) /HPF Urine Microscopic WBC (0-5) /HPF Ur Epithelial Cells (None Seen) /HPF Urine Bacteria (None Seen) /HPF Urine Culture Reflexed (NO) - Radiology Exams Ordered Rad Exams-Entire Visit: Radiology Procedures Category Date Time Status ABDOMEN AND PELVIS W/0 CONTRAS [CT] Stat Exams 06/06/23 13:22 Completed CERVICAL SPINE WO CONTRAST [CT] Stat Exams 06/06/23 13:23 Completed CHEST WITH CONTRAST [CT] Stat Exams 06/06/23 14:27 Completed ECHO W/2D AND DOPPLER [US] Routine Exams 06/07/23 11:02 Taken HEAD WITHOUT CONTRAST [CT] Stat Exams 06/06/23 13:23 Completed - Procedures and Test Procedures and Tests throughout Hospitalization: Therapy Orders & Screens 06/06/23 23:00 Respiratory Therapy Assessment DAILY Comment: Diagnosis: Afib uncontrolled with chest pain and syncope Discharge Exam General Appearance: no apparent distress, alert Neurologic Exam: alert, oriented x 3, cooperative, normal mood/affect, nml cerebellar function, sensation nml, No motor deficits Eye Exam: PERRL, EOMI, eyes nml inspection Ears, Nose, Throat Exam: normal ENT inspection, pharynx normal, moist mucous membranes Neck Exam: normal inspection, non-tender, supple, full range of motion Respiratory Exam: normal breath sounds, lungs clear, No respiratory distress Cardiovascular Exam: normal heart sounds, other (irregular rate- a-fib- controlled) Gastrointestinal/Abdomen Exam: soft, No tenderness, No mass Pelvic Exam: deferred Rectal Exam: deferred Back Exam: normal inspection, normal range of motion, No CVA tenderness, No vertebral tenderness Extremity Exam: normal inspection, normal range of motion Skin Exam: normal color, warm, dry Final Diagnosis/Problem List - Final Discharge Diagnosis/Problem (1) Syncope Current Visit: Yes Status: Acute Code(s): R55 - SYNCOPE AND COLLAPSE (2) Uncontrolled atrial fibrillation Current Visit: Yes Status: Acute Code(s): I48.91 - UNSPECIFIED ATRIAL FIBRILLATION (3) Hyponatremia Current Visit: Yes Status: Acute Code(s): E87.1 - HYPO-OSMOLALITY AND HYPONATREMIA (4) Constipation Current Visit: Yes Status: Acute Assessment & Plan: (1) Syncope Current Visit: Yes Status: Acute Assessment & Plan: - Chest CT 06/06: No radiological evidence of pulmonary embolism. Picture suggesting air entrapment (COPD), for clinical correlation. Few calcified pulmonary granulomas. Mild cardiomegaly and pericardial effusion. - Echo pending - Cardiology consult - Head CT 06/06: Senile brain parenchymal involutional changes and mild white matter microvascular ischemic changes. No intracranial hematoma, established ischemic territorial infarction, mass affect or acute bony injury. Clinical correlation advised for further evaluation. - Cervical spine CT 06/06: IMPRESSION: In setting of explained clinical trauma, no acute osseous abnormality. 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 Multilevel disc migratory and degenerative spinal change related bony canal and foraminal narrowing is noted. C3-4 3 mm circumferential disc-ossified spurring, ventral thecal effacement and mild bony foraminal narrowing bilaterally. C4-5: 4.5 mm circumferential disc-ossified spurring, mild central canal stenosis and bilateral bony neural foraminal moderate narrowing. C5-6: 5 mm circumferential disc-ossified spurring, mild central canal stenosis and bilateral bony neural foraminal moderate narrowing. C6-7: 3 mm circumferential disc-ossified spurring, ventral thecal effacement, bilateral bony neural foraminal mild narrowing. Clinical correlation recommended. Code(s): R55 - SYNCOPE AND COLLAPSE (2) Uncontrolled atrial fibrillation Current Visit: Yes Status: Acute Assessment & Plan: - tele -Resume metoprolol 25 mg twice daily (was having symptoms of lethargy with higher doses) -Start as needed IV metoprolol -May need to consider digoxin versus calcium channel patti if metoprolol does not control tachycardia -Maintain K greater than 4 mag greater than 2 -Follow-up sodium after IV fluids- 130 -Resume Xarelto 06/07 -Echo - resolved uncontrolled a-fib -Trop x3 negative - Cardiology consulted - Mag 1.8- replacement ordered - OK to D/C per cardiology and F/U OP Code(s): I48.91 - UNSPECIFIED ATRIAL FIBRILLATION (3) Hyponatremia Current Visit: Yes Status: Acute Assessment & Plan: - Mild Na+ 130 - Chronic per pt Code(s): E87.1 - HYPO-OSMOLALITY AND HYPONATREMIA (4) Constipation Current Visit: Yes Status: Acute Assessment & Plan: - Docusate 100mg BID PRN - CT abd/ pelvis 06/06: Colonic diverticulosis sigmoid colonic predominance with early acute sigmoid diverticulitis. Clinical correlation is recommended. Hepatosplenic calcifications ? granulomas. Perinephric fat stranding seen around both kidneys with mild cortical scarring bilaterally. The findings suggest medical nephropathy versus UTI, for clinical correlation and workup as indicated, Code(s): K59.00 - CONSTIPATION, UNSPECIFIED Code(s): K59.00 - CONSTIPATION, UNSPECIFIED - Discharge Discharge Date: 06/07/23 Disposition: Home, Self-Care Condition: Good Prescriptions: New Docusate Sodium 100 mg [Docusate Sodium 100 MG] 100 mg PO BIDPRN PRN 30 Days #60 cap PRN Reason: Constipation Continue Hydrochlorothiazide 25 mg [hydroDIURIL 25 MG] 25 mg PO DAILY Enalapril Maleate 20 mg PO BID Allopurinol 100 mg [Zyloprim 100 mg] 2 tab PO DAILY Metoprolol Tartrate 50 mg [Lopressor 50 MG] 0.5 tab PO BID Furosemide 20 mg [Lasix 20 mg] 1 tab PO DAILY Cetirizine HCl 1 tab PO DAILY Rivaroxaban [Xarelto] 1 tab PO DAILY Vit C/E/Zn/Coppr/Lutein/Zeaxan [Preservision Areds 2 Softgel] 2 cap PO DAILY Zinc Gluconate [Zinc] 1 tab PO DAILY B-Complex with Vitamin C [Vitamin B-Complex & C] 1 tab PO DAILY Estradiol [Estrace] 0.75 mg PO DAILY Instructions: Atrial Fibrillation (DC), Preventing falls in adults, Going Home on Blood Thinners Follow up with: RUSTAM WILLIS [Primary Care Provider] - 06/24/23 10:30 am DAVID LEE MD [CONSULTING PHYSICIAN] - 06/14/23 11:00 am
== END 2023-06-07 13:55 | disposition home or self-care (01) ==
LOC: ED 12:30 → MED SURG 19:44
PROVIDERS: ADMIT Internal Medicine; ATTEND Internal Medicine
DX: R55 Syncope and collapse (principal); I48.91 Unspecified atrial fibrillation; E87.1 Hypo-osmolality and hyponatremia; K59.00 Constipation, unspecified; W19.XXXA Unspecified fall, initial encounter; I10 Essential (primary) hypertension; R00.0 Tachycardia, unspecified; J44.9 Chronic obstructive pulmonary disease, unspecified; I31.39 Other pericardial effusion (noninflammatory); Z79.01 Long term (current) use of anticoagulants; Z79.899 Other long term (current) drug therapy; Z20.828 Contact with and (suspected) exposure to other viral communicable diseases; Z85.820 Personal history of malignant melanoma of skin
CPT/HCPCS: 36000; 36415; 70450; 71260; 72125; 74176; 80048; 80053; 81001; 82150; 82550; 83605; 83690; 83735; 83880; 84436; 84443; 84484; 85025; 85379; 85652; 93005; 93268; 93306; 94760; 96360; 96361; 99285; Q3014; A9270-GY; G0378

== ENCOUNTER 2024-10-26 22:52 | Observation (INO) | payer MEDICARE, OTHER ==
[2024-10-26] MEDS ORDERED: Sodium Chloride 0.45% 500ML 500 ML IV ONE (23:54)
--- NOTE | 2024-10-26 23:57 | ERPHSYRPT ---
- History of Present Illness Time Seen by Provider: 10/26/24 23:28 Source: patient, family Exam Limitations: no limitations Physician History: 74 years old female with history of atrial fibrillation status post ablation last month and cardioversion this afternoon at Dr. Rodriguez's office, on Xarelto, hypertension, hyperlipidemia presented in the ER with not feeling well since she left the office. Patient reports she has a yucky feeling with nausea, dry heaving, did have abdominal pain earlier which is resolved now. Denies any chest pain or difficulty breathing. Patient reports she does not feel herself. Allergies/Adverse Reactions: meclofenamic acid [From Meclomen] Allergy (Verified 10/27/24 00:21) naproxen Allergy (Verified 10/27/24 00:21) hydrocodone Adverse Reaction (Intermediate, Verified 10/27/24 00:21) Lightheadedness amlodipine Adverse Reaction (Verified 10/27/24 00:21) apixaban [From Eliquis] Adverse Reaction (Verified 10/27/24 00:21) Home Medications: Allopurinol 100 mg [Zyloprim 100 mg] 2 tab PO DAILY 11/02/14 [History] Enalapril Maleate 20 mg PO BID 11/02/14 [History] B-Complex with Vitamin C [Vitamin B-Complex & C] 1 tab PO DAILY 06/06/23 [History] Furosemide 20 mg [Lasix 20 mg] 1 tab PO DAILY 06/06/23 [History] Metoprolol Tartrate 50 mg [Lopressor 50 MG] 50 mg PO BID 06/06/23 [History] Rivaroxaban [Xarelto] 1 tab PO DAILY 06/06/23 [History] Zinc Gluconate [Zinc] 1 tab PO DAILY 06/06/23 [History] Estradiol [Estrace] 0.75 mg PO DAILY 06/07/23 [History] Cetirizine HCl 5 mg PO DAILY 10/27/24 [History] Flecainide Acetate 50 mg PO Q12H 10/27/24 [History] Hydrochlorothiazide 25 mg [hydroDIURIL 25 MG] 25 mg PO DAILY 10/27/24 [History] Tizanidine HCl 4 mg [Zanaflex 4 MG] 0.25 tab PO HS 10/27/24 [History] Hx Tetanus, Diphtheria Vaccination/Date Given: Yes Hx Influenza Vaccination/Date Given: No Hx Pneumococcal Vaccination/Date Given: No - Review of Systems Constitutional: Fatigue, Weakness Eyes: No Symptoms Ears, Nose, & Throat: No Symptoms Respiratory: No Symptoms Cardiac: No Symptoms Abdominal/Gastrointestinal: Abdominal Pain, Nausea Genitourinary Symptoms: No Symptoms Musculoskeletal: Arthralgias Skin: No Symptoms Neurological: No Symptoms - Past Medical History Pertinent Past Medical History: Yes Neurological History: No Pertinent History ENT History: Macular Degeneration Cardiac History: Arrhythmia, Coronary Artery Disease, High Cholesterol, Hypertension Respiratory History: No Pertinent History, Sleep Apnea Endocrine Medical History: No Pertinent History Musculoskeletal History: Osteoarthritis GI Medical History: Diverticulitis, Diverticulosis History: No Pertinent History Psycho-Social History: No Pertinent History Female Reproductive Disorders: No Pertinent History Other Medical History: PMH: A-FIB, FIBROMYALGIA. PSH: HYSTERECTOMY, NERVE REMOVED FROM L FOOT, WISDOM TEETH REMOVED, SKIN CANCER REMOVED - Past Surgical History Past Surgical History: Yes Neuro Surgical History: No Pertinent History Cardiac: Cardiac Catheterization Respiratory: No Pertinent History Gastrointestinal: No Pertinent History Genitourinary: No Pertinent History Musculoskeletal: Orthopedic Surgery Female Surgical History: Hysterectomy, Tubal Ligation Other Surgical History: CARPEL TUNNEL - COLONOSCOPY - ARTHROSCOPY/R KNEE, lt foot surgery, skin cancer removal Significant Family History: no pertinent family hx - Social History Smoking Status: Never smoker Exposure to second hand smoke: No Drug Use: none Patient Lives Alone: No - Nursing Vital Signs Nursing Vital Signs: Initial Vital Signs O2 Sat by Pulse Oximetry 96 10/26/24 23:57 Pain Scale Pain Intensity 0 - Physical Exam General Appearance: no apparent distress, alert Eye Exam: PERRL/EOMI Ears, Nose, Throat Exam: normal ENT inspection, pharynx normal Neck Exam: normal inspection, full range of motion Respiratory Exam: normal breath sounds, lungs clear Cardiovascular Exam: regular rate/rhythm, normal heart sounds Gastrointestinal/Abdomen Exam: soft, normal bowel sounds, No tenderness Back Exam: normal inspection Extremity Exam: normal inspection, normal range of motion Neurologic Exam: alert, oriented x 3, cooperative, 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 as 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 Skin Exam: normal color SpO2 Interpretation: normal SpO2: 96 O2 Delivery: Room Air - Course EKG Interpreted by Me: RATE ([id number]), Sinus Rhythm, NORMAL AXIS, Non-specific ST Changes Ordered Tests: Active Orders 24 hr Category Date Time Status EKG-ER Only STAT Care 10/26/24 23:53 Active IV Insertion STAT Care 10/26/24 23:53 Active NPO (ED) STAT Care 10/26/24 23:53 Active CHEST 1 VIEW (PORTABLE) Routine Exams 10/27/24 00:42 Taken CULTURE,URINE Stat Lab 10/27/24 01:20 Received TROPONIN Q4H Lab 10/27/24 03:53 Ordered TROPONIN Q4H Lab 10/27/24 07:53 Ordered UA W/RFX UR CULTURE Stat Lab 10/27/24 01:20 Completed Transfer Order Routine Transfer 10/27/24 Ordered Medication Summary Discontinued Medications Generic Name Dose Route Start Last Admin Trade Name Freq PRN Reason Stop Dose Admin Famotidine 20 mg 10/26/24 23:53 10/27/24 01:54 Famotidine 20 Mg/1 Vial IV 10/26/24 23:54 20 mg STAT ONE Administration Famotidine Confirm 10/27/24 01:42 Famotidine 20 Mg/1 Vial Administered 10/27/24 01:43 Dose 20 mg IV .STK-MED ONE Sodium Chloride 500 mls @ 500 mls/hr 10/26/24 23:54 Sodium Chloride 0.45% 500ml IV 10/27/24 00:53 .Q1H ONE Sodium Chloride Confirm 10/27/24 01:43 Sodium Chloride 0.9% 500 Ml Administered 10/27/24 01:44 Dose 500 mls @ ud IV .STK-MED ONE Sodium Chloride 500 mls @ 500 mls/hr 10/27/24 01:52 10/27/24 01:53 Sodium Chloride 0.9% 500 Ml IV 10/27/24 02:51 500 mls/hr .Q1H ONE Administration Sodium Chloride Confirm 10/27/24 01:50 Sodium Chloride 0.45% 1000 Ml Administered 10/27/24 01:51 Dose 1,000 mls @ ud IV .STK-MED ONE Sodium Chloride Confirm 10/27/24 01:51 Sodium Chloride 0.9% 500 Ml Administered 10/27/24 01:52 Dose 500 mls @ ud IV .STK-MED ONE Ceftriaxone Sodium 2 gm in 100 mls @ 200 mls/hr 10/27/24 02:31 10/27/24 02:48 Rocephin 2 Gm/100 Ml Nacl IV 10/27/24 03:00 200 mls/hr STAT ONE 200 mls/hr Administration Ceftriaxone Sodium Confirm 10/27/24 02:47 Rocephin 2 Gm/100 Ml Nacl Administered 10/27/24 02:48 Dose 2 gm in 100 mls @ ud IV .STK-MED ONE Ondansetron HCl 4 mg 10/26/24 23:53 10/27/24 01:54 Ondansetron Hcl 4 Mg/2 Ml Vial IV 10/26/24 23:54 4 mg STAT ONE Administration Ondansetron HCl Confirm 10/27/24 01:42 Ondansetron Hcl 4 Mg/2 Ml Vial Administered 10/27/24 01:43 Dose 4 mg .ROUTE .STK-MED ONE Lab/Rad Data: Laboratory Result Diagrams 10/26/24 00:16 10/26/24 00:16 Laboratory Results 10/27/24 10/27/24 10/26/24 Range/Units 01:20 01:14 00:16 WBC (3.98-10.04) x10^3/uL RBC (3.93-5.22) x10^6/uL Hgb (11.2-15.7) g/dL Hct (34.1-44.9) % MCV (79.4-94.8) fL MCH (25.6-32.2) pg MCHC (32.2-35.5) g/dL RDW (11.7-14.4) % Plt Count (182-369) x10^3/uL MPV (9.4-12.3) fL Gran % (34.0-71.1) % Immature Gran % (Auto) (0.001-0.429) % Nucleat RBC Rel Count (0.00-0.2) % Eos # (Auto) (0.04-0.36) x10^3/uL Immature Gran # (Auto) (0.001-0.031) x10^3u/L Absolute Lymphs (auto) (1.18-3.74) x10^3/uL Absolute Monos (auto) (0.24-0.86) x10^3/uL Absolute Nucleated RBC (0.00-0.012) x10^3u/L Lymphocytes % (19.3-51.7) % Monocytes % (4.7-12.5) % Eosinophils % (0.7-5.8) % Basophils % (0.1-1.2) % Absolute Granulocytes (1.56-6.13) x10^3/uL Basophils # (0.01-0.08) x10^3/uL Sodium 133 L (135-145) mmol/L Potassium 4.0 (3.5-5.1) mmol/L Chloride 102 (98-107) mmol/L Carbon Dioxide 21 L (22-30) mmol/L Anion Gap 13.4 (5-15) MEQ/L BUN 28 H (7-17) mg/dL Creatinine 0.91 (0.52-1.04) mg/dL Estimated GFR 66.6 ML/MIN Glucose 128 H (74-106) mg/dL Calcium 8.6 (8.4-10.2) mg/dL Magnesium 1.8 (1.6-2.3) mg/dL Total Bilirubin 0.70 (0.2-1.3) mg/dL AST 132 H (14-36) U/L ALT 109 H (0-35) U/L Alkaline Phosphatase 110 (38-126) U/L Troponin I < 0.012 (0.000-0.033) ng/mL Serum Total Protein 6.5 (6.3-8.2) g/dL Albumin 3.9 (3.5-5.0) g/dL Lipase 208 (23-300) U/L Urine Color Dark Yellow A (Yellow) Urine Appearance Clear (Clear) Urine pH 5.5 (4.6-8.0) Ur Specific [place] 1.020 (1.005-1.030) Urine Protein Trace A (Negative) Urine Glucose (UA) Negative (Negative) mg/dL Urine Ketones Trace A (Negative) Urine Blood Negative (Negative) Urine Nitrite Positive A (Negative) Urine Bilirubin Negative (Negative) Urine Urobilinogen 1.0 A (0.2) mg/dL Ur Leukocyte Esterase Small A (Negative) U Hyaline Cast (Auto) 11-20 (0-2) /LPF Urine Microscopic RBC 0-2 (0-5) /HPF Urine Microscopic WBC 21-50 A (0-5) /HPF Ur Epithelial Cells None Seen (None Seen) /HPF Urine Bacteria Many A (None Seen) /HPF Urine Culture Reflexed YES (NO) Influenza Type A Ag NEGATIVE (NEGATIVE) Influenza Type B Ag NEGATIVE (NEGATIVE) RSV (PCR) NEGATIVE (NEGATIVE) SARS-CoV-2 (PCR) NEGATIVE (NEGATIVE) Slides for Path Review 10/26/24 Range/Units 00:16 WBC 8.8 (3.98-10.04) x10^3/uL RBC 3.66 L (3.93-5.22) x10^6/uL Hgb 11.2 (11.2-15.7) g/dL Hct 34.4 (34.1-44.9) % MCV 94.0 (79.4-94.8) fL MCH 30.6 (25.6-32.2) pg MCHC 32.6 (32.2-35.5) g/dL RDW 14.8 H (11.7-14.4) % Plt Count 226 (182-369) x10^3/uL MPV 9.1 L (9.4-12.3) fL Gran % 90.9 H (34.0-71.1) % Immature Gran % (Auto) 0.3 (0.001-0.429) % Nucleat RBC Rel Count 0.0 (0.00-0.2) % Eos # (Auto) 0.01 L (0.04-0.36) x10^3/uL Immature Gran # (Auto) 0.03 (0.001-0.031) x10^3u/L Absolute Lymphs (auto) 0.48 L (1.18-3.74) x10^3/uL Absolute Monos (auto) 0.26 (0.24-0.86) x10^3/uL Absolute Nucleated RBC 0.00 (0.00-0.012) x10^3u/L Lymphocytes % 5.5 L (19.3-51.7) % Monocytes % 3.0 L (4.7-12.5) % Eosinophils % 0.1 L (0.7-5.8) % Basophils % 0.2 (0.1-1.2) % Absolute Granulocytes 7.97 H (1.56-6.13) x10^3/uL Basophils # 0.02 (0.01-0.08) x10^3/uL Sodium (135-145) mmol/L Potassium (3.5-5.1) mmol/L Chloride (98-107) mmol/L Carbon Dioxide (22-30) mmol/L Anion Gap (5-15) MEQ/L BUN (7-17) mg/dL Creatinine (0.52-1.04) mg/dL Estimated GFR ML/MIN Glucose (74-106) mg/dL Calcium (8.4-10.2) mg/dL Magnesium (1.6-2.3) mg/dL Total Bilirubin (0.2-1.3) mg/dL AST (14-36) U/L ALT (0-35) U/L Alkaline Phosphatase (38-126) U/L Troponin I (0.000-0.033) ng/mL Serum Total Protein (6.3-8.2) g/dL Albumin (3.5-5.0) g/dL Lipase (23-300) U/L Urine Color (Yellow) Urine Appearance (Clear) Urine pH (4.6-8.0) Ur Specific [place] (1.005-1.030) Urine Protein (Negative) Urine Glucose (UA) (Negative) mg/dL Urine Ketones (Negative) Urine Blood (Negative) Urine Nitrite (Negative) Urine Bilirubin (Negative) Urine Urobilinogen (0.2) mg/dL Ur Leukocyte Esterase (Negative) U Hyaline Cast (Auto) (0-2) /LPF Urine Microscopic RBC (0-5) /HPF Urine Microscopic WBC (0-5) /HPF Ur Epithelial Cells (None Seen) /HPF Urine Bacteria (None Seen) /HPF Urine Culture Reflexed (NO) Influenza Type A Ag (NEGATIVE) Influenza Type B Ag (NEGATIVE) RSV (PCR) (NEGATIVE) SARS-CoV-2 (PCR) (NEGATIVE) Slides for Path Review YES - Progress Progress: improved Progress Note: 10/27/24 03:09 74 years old with history of atrial fibrillation with cardioversion done in the afternoon is evaluated in the ER for patient feeling generalized weakness, tiredness, nausea and dry heaving. Patient is not in any distress. EKG is sinus rhythm with no acute ST elevations. Abdominal exam is soft nontender with normoactive bowel sounds. She is given fluids and symptomatic treatment, on reevaluation she is feeling better but still not back to normal. Normal troponin, normal white count, chemistries fairly unremarkable. Does have UTI. Given a dose of Rocephin. Chest x-ray is negative for any acute cardiopulmonary findings reviewed by me, official report is pending. COVID flu and RSV are negative. I have discussed with Dr. Rob on-call for Dr. Rodriguez patient's cardiology, reviewed history, workup, recommended patient does not need to be transferred and can be discharged her kept in here. I think part of her symptoms are secondary to use of anesthetics for car dioversion. I believe patient would benefit with IV hydration, antibiotics, discussed with Dr. Amaya and patient is being admitted. Discussed with Dr.: Other (Dr. Amaya hospitalist and Dr. Rob library services coordinator) Will see patient in: hospital (observation) Counseled pt/family regarding: lab results, diagnosis, rad results Medical Desision Making - Independent Historian Additional History obtained from: Spouse - Discussion of managment Care discussed with:: hospitalist Reviewed:: Test results Agreed on:: Treatment plan Will see patient: in hospital - Diagnostic Testing Diagnostic test were ordered, analyzed, and reviewed by me: Yes Radiological Interpretation: Interpreted by me, Reviewed by me - Risk of complications The pt has a mod risk of morbidity or mortality based on: Need for prescription drug management The pt has a high risk of morbidity or mortality based on: Decision regarding hospitilization or escalation of hosp level of care - Departure Departure Disposition: Observation Clinical Impression: UTI (lower urinary tract infection), Nausea & vomiting, Generalized weakness Condition: Stable Critical Care Time: No Referrals: RUSTAM WILLIS [Primary Care Provider] - Follow up/PCP as directed
[2024-10-27 00:16] LABS: Absolute Neutrophil Ct (ANC) 7.97 x10^3/uL (1.56-6.13); BASOPHIL % 0.2 % (0.1-1.2); Basophil (Absolute #) 0.02 x10^3/uL (0.01-0.08); Eosinophil % 0.1 % (0.7-5.8); Eosinophil (Absolute #) 0.01 x10^3/uL (0.04-0.36); Hematocrit 34.4 % (34.1-44.9); Hemoglobin 11.2 g/dL (11.2-15.7); IMMATURE GRAN # 0.03 x10^3u/L (0.001-0.031); IMMATURE GRAN % 0.3 % (0.001-0.429); Lymphocyte (Absolute #) 0.48 x10^3/uL (1.18-3.74); Lymphocytes % 5.5 % (19.3-51.7); Mean Corpuscular Hemoglobin 30.6 pg (25.6-32.2); Mean Corpuscular Hgb Concent. 32.6 g/dL (32.2-35.5); Mean Platelet Volume 9.1 fL (9.4-12.3); Monocyte (Absolute #) 0.26 x10^3/uL (0.24-0.86); Neutrophil % 90.9 % (34.0-71.1); Platelet Count 226 x10^3/uL (182-369); Red Blood Count 3.66 x10^6/uL (3.93-5.22); Red Cell Distribution Width 14.8 % (11.7-14.4); White Blood Count 8.8 x10^3/uL (3.98-10.04)
[2024-10-27 00:42] LABS: ALBUMIN 3.9 g/dL (3.5-5.0); ALKALINE PHOSPHATASE 110 U/L (38-126); ANION GAP 13.4 MEQ/L (5-15); BLOOD UREA NITROGEN 28 mg/dL (7-17); CHLORIDE 102 mmol/L (98-107); Calcium 8.6 mg/dL (8.4-10.2); Carbon Dioxide 21 mmol/L (22-30); Creatinine 1 0.91 mg/dL (0.52-1.04); EST GLOMERULAR FILTRATION RATE 66.6 ML/MIN; Glucose 128 mg/dL (74-106); LIPASE 208 U/L (23-300); MAGNESIUM 1.8 mg/dL (1.6-2.3); SGOT/AST 132 U/L (14-36); SGPT/ALT 109 U/L (0-35); SODIUM 133 mmol/L (135-145); TROPONIN < 0.012 ng/mL (0.000-0.033); Total Protein 6.5 g/dL (6.3-8.2)
[2024-10-27 00:47] LABS: Slide Review 1 YES
[2024-10-27 01:35] LABS: Appearance Clear (Clear); Bacteria Many /HPF (None Seen); Bilirubin Negative (Negative); Blood Negative (Negative); Epithelial Cells None Seen /HPF (None Seen); Glucose, Urine Negative (Negative); Ketones Trace (Negative); Leukocyte Esterase Small (Negative); Nitrite Positive (Negative); Ph 5.5 (4.6-8.0); Protein,Urine Dip Trace (Negative); RBC 0-2 /HPF (0-5); WBC 21-50 /HPF (0-5)
[2024-10-27] MEDS ORDERED: Pepcid 20 MG VIAL IV ONE (01:42)
[2024-10-27] MEDS ORDERED: Zofran 4 MG/2 ML VIAL ONE (01:42)
[2024-10-27] MEDS ORDERED: Sodium Chloride 0.9% 500 ML 0 ML IV ONE (01:43)
[2024-10-27] MEDS ORDERED: Sodium Chloride 0.9% 500 ML 500 ML IV ONE (01:51)
[2024-10-27 01:53] LABS: INFLUENZA A NEGATIVE (NEGATIVE); INFLUENZA B NEGATIVE (NEGATIVE); RESPIRATORY SYNCTIAL VIRUS NEGATIVE (NEGATIVE); SARS-CoV-2 Xpert Express NEGATIVE (NEGATIVE)
[2024-10-27] MEDS: Sodium Chloride 0.9% 500 ML 500 ML IV ONE (01:53)
[2024-10-27] MEDS: Pepcid 20 MG VIAL IV ONE (01:54)
[2024-10-27] MEDS: Zofran 4 MG/2 ML VIAL IV ONE (01:54)
[2024-10-27] MEDS ORDERED: ROCEPHIN 2 GM/100 ML NACL 2 GM/100 ML IVPB IV ONE (02:47)
[2024-10-27] MEDS: ROCEPHIN 2 GM/100 ML NACL 2 GM/100 ML IVPB IV ONE (02:48)
[2024-10-27] MEDS ORDERED: TYLENOL 325 MG ONE (05:52)
--- NOTE | 2024-10-27 05:52 | PCM.HP ---
History of Present Illness - Chief Complaint Chief Complaint: abd pain Date: 10/27/24 History of Present Illness: Ms. 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 She then developed waves of nausea, abdominal pain and four episodes of diarrhea. She was seen in the ER and urinalysis demonstrated positive nitrites, so she was started on IVFs and antibiotics. She does take two diuretics but had held her lasix prior to her cardioversion. She is seen via telehealth where she is awake/alert, feeling better after the fluids. No fever/chills. No chest pain or shortness of breath. No dysuria, hematuria or urgency. - Review of Systems Constitutional: Fatigue, No Fever, No Chills Eyes: No Double Vision Ears, Nose, & Throat: No Nose Discharge, No Sinus Drainage Respiratory: No Cough, No Orthopnea, No Short Of Breath Cardiac: No Chest Pain, No Edema, No Palpitations Abdominal/Gastrointestinal: Abdominal Pain, Nausea, Diarrhea Genitourinary Symptoms: No Dysuria, No Frequency, No Hematuria Musculoskeletal: No Arthralgias, No Back Pain Skin: No Cellulitis, No Rash Neurological: No Focal Weakness Psychological: No Suicidal Ideations Endocrine: No Polyuria, No Polydipsia Hematologic/Lymphatic: No Easy Bruising Medications & Allergies Home Medications: Home Medication List Allopurinol 100 mg [Zyloprim 100 mg] 2 tab PO DAILY 11/02/14 [History Confirmed 10/27/24] Enalapril Maleate 20 mg PO BID 11/02/14 [History Confirmed 10/27/24] B-Complex with Vitamin C [Vitamin B-Complex & C] 1 tab PO DAILY 06/06/23 [History Confirmed 10/27/24] Furosemide 20 mg [Lasix 20 mg] 1 tab PO DAILY 06/06/23 [History Confirmed 10/27/24] Metoprolol Tartrate 50 mg [Lopressor 50 MG] 50 mg PO BID 06/06/23 [History Confirmed 10/27/24] Rivaroxaban [Xarelto] 1 tab PO DAILY 06/06/23 [History Confirmed 10/27/24] Zinc Gluconate [Zinc] 1 tab PO DAILY 06/06/23 [History Confirmed 10/27/24] Estradiol [Estrace] 0.75 mg PO DAILY 06/07/23 [History Confirmed 10/27/24] Cetirizine HCl 5 mg PO DAILY 10/27/24 [History Confirmed 10/27/24] Flecainide Acetate 50 mg PO Q12H 10/27/24 [History Confirmed 10/27/24] Hydrochlorothiazide 25 mg [hydroDIURIL 25 MG] 25 mg PO DAILY 10/27/24 [History Confirmed 10/27/24] Tizanidine HCl 4 mg [Zanaflex 4 MG] 0.25 tab PO HS 10/27/24 [History Confirmed 10/27/24] Allergies/Adverse Reactions: Allergies Allergy/AdvReac Type Severity Reaction Status Date / Time meclofenamic acid Allergy Verified 10/27/24 00:21 [From Meclomen] naproxen Allergy Verified 10/27/24 00:21 hydrocodone AdvReac Intermediate Lightheaded Verified 10/27/24 00:21 ness amlodipine AdvReac Verified 10/27/24 00:21 apixaban [From Eliquis] AdvReac Verified 10/27/24 00:21 - Past Medical History Past Medical History: Yes Neurological History: No Pertinent History ENT History: Cataracts, Macular Degeneration Cardiac History: Arrhythmia, Coronary Artery Disease, High Cholesterol, Hy pertension Respiratory History: Bronchitis Endocrine Medical History: No Pertinent History Musculoskelatal History: Osteoarthritis GI Medical History: Diverticulitis, Diverticulosis History: No Pertinent History Pyscho-Social History: No Pertinent History Reproductive Disorders: No Pertinent History Comment: PMH: A-FIB, FIBROMYALGIA. PSH: HYSTERECTOMY, NERVE REMOVED FROM L FOOT, WISDOM TEETH REMOVED, SKIN CANCER REMOVED - Past Surgical History Past Surgical History: Yes Neuro Surgical History: No Pertinent History Cardiac History: Cardiac Catheterization, Other Respiratory Surgery: No Pertinent History GI Surgical History: No Pertinent History Genitourinary Surgical Hx: No Pertinent History Musculskeletal Surgical Hx: Orthopedic Surgery Female Surgical History: Hysterectomy, Tubal Ligation Other Surgical History: CARPEL TUNNEL - COLONOSCOPY - ARTHROSCOPY/R KNEE, lt foot surgery, skin cancer removal, ablation (09/22/24), cardioconversion () Significant Family History: no pertinent family hx - Social History Smoking Status: Never smoker Exposure to second hand smoke: No Alcohol: Rarely Drug Use: none - Social Determinants of Health Will the patient participate in the screening: Yes Do you worry about a steady place to live?: No Do you have any problems with any of the following?: No known problems In the past 12 months,have you had to go without utilities?: No Have you or anyone in your house had to go without enough: No Transportation Issues: No Has anyone in your support network made you feel unsafe?: No - Physical Exam Vital Signs: Vital Signs - 24 hr Temp Pulse Resp BP BP Pulse Ox 10/27/24 04:10 68 19 98 10/27/24 04:02 69 21 96 10/27/24 04:00 168/90 10/27/24 03:35 69 23 174/92 96 10/27/24 03:34 68 27 H 98 10/27/24 03:32 71 24 98 10/27/24 03:12 96 10/27/24 03:01 66 18 166/94 98 10/27/24 03:00 88 21 175/106 98 10/27/24 02:50 82 21 99 10/27/24 02:40 66 22 98 10/27/24 02:32 67 21 98 10/27/24 02:00 70 26 H 160/91 99 10/27/24 01:59 70 20 168/94 99 10/27/24 01:00 68 19 153/73 97 10/27/24 00:30 68 20 151/93 97 10/27/24 00:14 98.3 F 67 18 151/90 97 10/27/24 00:00 67 20 151/90 98 General Appearance: no apparent distress Neurologic Exam: alert, cooperative Ears, Nose, Throat Exam: dry mucous membranes Neck Exam: supple, No JVD Respiratory Exam: No respiratory distress Cardiovascular Exam: regular rate/rhythm Gastrointestinal/Abdomen Exam: soft Extremity Exam: No pedal edema, No swelling Skin Exam: normal color, No rash Results - Labs Lab/Micro Results: Lab Results-Last 24 Hours 10/26/24 10/26/24 10/27/24 Range/Units 00:16 00:16 01:14 WBC 8.8 (3.98-10.04) x10^3/uL RBC 3.66 L (3.93-5.22) x10^6/uL Hgb 11.2 (11.2-15.7) g/dL Hct 34.4 (34.1-44.9) % MCV 94.0 (79.4-94.8) fL MCH 30.6 (25.6-32.2) pg MCHC 32.6 (32.2-35.5) g/dL RDW 14.8 H (11.7-14.4) % Plt Count 226 (182-369) x10^3/uL MPV 9.1 L (9.4-12.3) fL Gran % 90.9 H (34.0-71.1) % Immature Gran % (Auto) 0.3 (0.001-0.429) % Nucleat RBC Rel Count 0.0 (0.00-0.2) % Eos # (Auto) 0.01 L (0.04-0.36) x10^3/uL Immature Gran # (Auto) 0.03 (0.001-0.031) x10^3u/L Absolute Lymphs (auto) 0.48 L (1.18-3.74) x10^3/uL Absolute Monos (auto) 0.26 (0.24-0.86) x10^3/uL Absolute Nucleated RBC 0.00 (0.00-0.012) x10^3u/L Lymphocytes % 5.5 L (19.3-51.7) % Monocytes % 3.0 L (4.7-12.5) % Eosinophils % 0.1 L (0.7-5.8) % Basophils % 0.2 (0.1-1.2) % Absolute Granulocytes 7.97 H (1.56-6.13) x10^3/uL Basophils # 0.02 (0.01-0.08) x10^3/uL Sodium 133 L (135-145) mmol/L Potassium 4.0 (3.5-5.1) mmol/L Chloride 102 (98-107) mmol/L Carbon Dioxide 21 L (22-30) mmol/L Anion Gap 13.4 (5-15) MEQ/L BUN 28 H (7-17) mg/dL Creatinine 0.91 (0.52-1.04) mg/dL Estimated GFR 66.6 ML/MIN Glucose 128 H (74-106) mg/dL Calcium 8.6 (8.4-10.2) mg/dL Magnesium 1.8 (1.6-2.3) mg/dL Total Bilirubin 0.70 (0.2-1.3) mg/dL AST 132 H (14-36) U/L ALT 109 H (0-35) U/L Alkaline Phosphatase 110 (38-126) U/L Troponin I < 0.012 (0.000-0.033) ng/mL Serum Total Protein 6.5 (6.3-8.2) g/dL Albumin 3.9 (3.5-5.0) g/dL Lipase 208 (23-300) U/L Urine Color (Yellow) Urine Appearance (Clear) Urine pH (4.6-8.0) Ur Specific [place] (1.005-1.030) Urine Protein (Negative) Urine Glucose (UA) (Negative) mg/dL Urine Ketones (Negative) Urine Blood (Negative) Urine Nitrite (Negative) Urine Bilirubin (Negative) Urine Urobilinogen (0.2) mg/dL Ur Leukocyte Esterase (Negative) U Hyaline Cast (Auto) (0-2) /LPF Urine Microscopic RBC (0-5) /HPF Urine Microscopic WBC (0-5) /HPF Ur Epithelial Cells (None Seen) /HPF Urine Bacteria (None Seen) /HPF Urine Culture Reflexed (NO) Influenza Type A Ag NEGATIVE (NEGATIVE) Influenza Type B Ag NEGATIVE (NEGATIVE) RSV (PCR) NEGATIVE (NEGATIVE) SARS-CoV-2 (PCR) NEGATIVE (NEGATIVE) Slides for Path Review YES 10/27/24 10/27/24 Range/Units 01:20 04:21 WBC (3.98-10.04) x10^3/uL RBC (3.93-5.22) x10^6/uL Hgb (11.2-15.7) g/dL Hct (34.1-44.9) % MCV (79.4-94.8) fL MCH (25.6-32.2) pg MCHC (32.2-35.5) g/dL RDW (11.7-14.4) % Plt Count (182-369) x10^3/uL MPV (9.4-12.3) fL Gran % (34.0-71.1) % Immature Gran % (Auto) (0.001-0.429) % Nucleat RBC Rel Count (0.00-0.2) % Eos # (Auto) (0.04-0.36) x10^3/uL Immature Gran # (Auto) (0.001-0.031) x10^3u/L Absolute Lymphs (auto) (1.18-3.74) x10^3/uL Absolute Monos (auto) (0.24-0.86) x10^3/uL Absolute Nucleated RBC (0.00-0.012) x10^3u/L Lymphocytes % (19.3-51.7) % Monocytes % (4.7-12.5) % Eosinophils % (0.7-5.8) % Basophils % (0.1-1.2) % Absolute Granulocytes (1.56-6.13) x10^3/uL Basophils # (0.01-0.08) x10^3/uL Sodium (135-145) mmol/L Potassium (3.5-5.1) mmol/L Chloride (98-107) mmol/L Carbon Dioxide (22-30) mmol/L Anion Gap (5-15) MEQ/L BUN (7-17) mg/dL Creatinine (0.52-1.04) mg/dL Estimated GFR ML/MIN Glucose (74-106) mg/dL Calcium (8.4-10.2) mg/dL Magnesium (1.6-2.3) mg/dL Total Bilirubin (0.2-1.3) mg/dL AST (14-36) U/L ALT (0-35) U/L Alkaline Phosphatase (38-126) U/L Troponin I < 0.012 (0.000-0.033) ng/mL Serum Total Protein (6.3-8.2) g/dL Albumin (3.5-5.0) g/dL Lipase (23-300) U/L Urine Color Dark Yellow A (Yellow) Urine Appearance Clear (Clear) Urine pH 5.5 (4.6-8.0) Ur Specific [place] 1.020 (1.005-1.030) Urine Protein Trace A (Negative) Urine Glucose (UA) Negative (Negative) mg/dL Urine Ketones Trace A (Negative) Urine Blood Negative (Negative) Urine Nitrite Positive A (Negative) Urine Bilirubin Negative (Negative) Urine Urobilinogen 1.0 A (0.2) mg/dL Ur Leukocyte Esterase Small A (Negative) U Hyaline Cast (Auto) 11-20 (0-2) /LPF Urine Microscopic RBC 0-2 (0-5) /HPF Urine Microscopic WBC 21-50 A (0-5) /HPF Ur Epithelial Cells None Seen (None Seen) /HPF Urine Bacteria Many A (None Seen) /HPF Urine Culture Reflexed YES (NO) Influenza Type A Ag (NEGATIVE) Influenza Type B Ag (NEGATIVE) RSV (PCR) (NEGATIVE) SARS-CoV-2 (PCR) (NEGATIVE) Slides for Path Review - Radiology Impressions Radiology Exams & Impressions: Radiology Procedures Category Date Time Status CHEST 1 VIEW (PORTABLE) Routine Exams 10/27/24 00:42 Taken Assessment/Plan (1) UTI (lower urinary tract infection) Current Visit: Yes Status: Acute Assessment & Plan: UTI likely exacerbated by diuretics and poor PO intake prior to cardioversion 1. Admit to hospital 2. Start antibiotics with Rocephin 3. Follow up urine culture 4. DVT/GI prophylaxis Code(s): N39.0 - URINARY TRACT INFECTION, SITE NOT SPECIFIED (2) Essential (primary) hypertension Current Visit: Yes Status: Acute Assessment & Plan: Blood pressure under good control 1. Continue bp meds 2. Low Na diet 3. Monitor blood pressure readings Code(s): I10 - ESSENTIAL (PRIMARY) HYPERTENSION (3) Afib Current Visit: No Status: Acute Assessment & Plan: Status post ablation/cardioversion 1. Monitor on telemetry 2. Rate control/Xarelto 3. Cardiology consult Code(s): I48.91 - UNSPECIFIED ATRIAL FIBRILLATION (4) Hyponatremia Current Visit: No Status: Acute Assessment & Plan: Likely from combination of hypovolemia and thiazide diuretic 1. Hold HCTZ 2. NS IVFs 3. Check urine lytes, urine osmo 4. Monitor electrolytes, kidney function closely Code(s): E87.1 - HYPO-OSMOLALITY AND HYPONATREMIA Telemedicine Encounter - Telemedicine Encounter Telemedicine Encounter: "The entirety of this encounter was performed via Telemedicine" This visit was performed using real-time audio and video connection between my location and thepatients locationwith the assistance of a surrogateat the patients location. Written or verbal consent was obtained from the patient/guardian to perform this visit usingsynchrMobiAppstelemedicine technology. Any patient questions regarding the telemedicine interaction were answered.
[2024-10-27] MEDS: Sodium Chloride 0.9% 1000 ML 1,000 ML IV SCH (05:56)
[2024-10-27] MEDS: TYLENOL 325 MG PO PRN ×2 (05:56→13:09)
[2024-10-27] MEDS: FLECAINIDE ACETATE PO SCH ×2 (07:41→09:44)
[2024-10-27] MEDS ORDERED: APRESOLINE 20 MG/ML INJ IV PRN (07:58)
[2024-10-27 08:24] LABS: ALBUMIN 3.5 g/dL (3.5-5.0); ANION GAP 12.4 MEQ/L (5-15); BILIRUBIN,TOTAL 0.4 mg/dL (0.2-1.3); Creatinine 1 1.02 mg/dL (0.52-1.04); EST GLOMERULAR FILTRATION RATE 58.1 ML/MIN
[2024-10-27 09:02] LABS: Hematocrit 33.8 % (34.1-44.9); Mean Cell Volume 93.9 fL (79.4-94.8); Mean Corpuscular Hemoglobin 30.6 pg (25.6-32.2); Mean Corpuscular Hgb Concent. 32.5 g/dL (32.2-35.5); Mean Platelet Volume 9.6 fL (9.4-12.3); Platelet Count 236 x10^3/uL (182-369); Red Cell Distribution Width 14.9 % (11.7-14.4); White Blood Count 9.4 x10^3/uL (3.98-10.04)
--- NOTE | 2024-10-27 09:41 | XRAY ---
Indication: Nausea. Comparison: None Portable apical lordotic chest inflated and clear. Heart borderline enlarged. Bony thorax intact with minimal degenerative changes. No acute findings.
[2024-10-27] MEDS: ESTRACE 1 MG PO SCH (09:42)
[2024-10-27] MEDS: Lopressor 50 MG PO SCH (09:42)
[2024-10-27] MEDS: CLARITIN 10 MG PO SCH (09:42)
[2024-10-27] MEDS: ZYLOPRIM 100 MG PO SCH (09:43)
[2024-10-27] MEDS: XARELTO 10 MG TABLET PO SCH ×2 (09:43→21:52)
[2024-10-27] MEDS: Protonix 40MG Tablet PO SCH (09:44)
[2024-10-27] MEDS: Zinc Gluconate 50 MG PO SCH (09:44)
[2024-10-27] MEDS: Zestril 20 MG PO SCH (09:44)
[2024-10-27] MEDS: VITA-BEE WITH C PO SCH (09:44)
--- NOTE | 2024-10-27 13:10 | XRAY ---
Indication: Low back pain. Comparison: None 3 view lumbar spine demonstrates 5 lumbar segments with osteopenia, minimal dextroscoliosis centered at L3, mild/moderate multilevel thoracolumbar degenerative spondylosis greatest at L4-S1 levels, and mild scattered vascular calcifications. No acute bony, articular, or soft tissue abnormalities.
[2024-10-27] MEDS: MELATONIN PO ONE (14:26)
[2024-10-27] MEDS: hydroDIURIL 25 MG PO SCH (19:29)
[2024-10-27] MEDS: LASIX 20 MG PO SCH (19:29)
[2024-10-27] MEDS: ROCEPHIN 1 GM / 100 ML NaCl 1 GM/100 ML IVPB IV SCH (21:50)
[2024-10-27] MEDS: MELATONIN PO PRN (21:51)
[2024-10-27] MEDS: Toprol Xl 50 MG PO SCH (21:51)
[2024-10-27] MEDS: Zanaflex 4 MG PO SCH (21:54)
[2024-10-28 06:21] LABS: Absolute Neutrophil Ct (ANC) 9.65 x10^3/uL (1.56-6.13); BASOPHIL % 0.6 % (0.1-1.2); Basophil (Absolute #) 0.07 x10^3/uL (0.01-0.08); Eosinophil % 0.1 % (0.7-5.8); Eosinophil (Absolute #) 0.01 x10^3/uL (0.04-0.36); Hematocrit 32.7 % (34.1-44.9); Hemoglobin 10.7 g/dL (11.2-15.7); IMMATURE GRAN # 0.05 x10^3u/L (0.001-0.031); IMMATURE GRAN % 0.5 % (0.001-0.429); Lymphocyte (Absolute #) 0.51 x10^3/uL (1.18-3.74); Lymphocytes % 4.7 % (19.3-51.7); Mean Corpuscular Hemoglobin 30.7 pg (25.6-32.2); Mean Corpuscular Hgb Concent. 32.7 g/dL (32.2-35.5); Mean Platelet Volume 9.8 fL (9.4-12.3); Monocyte (Absolute #) 0.51 x10^3/uL (0.24-0.86); Monocytes % 4.7 % (4.7-12.5); Neutrophil % 89.4 % (34.0-71.1); Platelet Count 213 x10^3/uL (182-369); Red Blood Count 3.48 x10^6/uL (3.93-5.22); Red Cell Distribution Width 15.4 % (11.7-14.4); White Blood Count 10.8 x10^3/uL (3.98-10.04)
[2024-10-28 06:49] LABS: ALBUMIN 3.8 g/dL (3.5-5.0); ANION GAP 13.5 MEQ/L (5-15); BILIRUBIN,TOTAL 0.6 mg/dL (0.2-1.3); EST GLOMERULAR FILTRATION RATE 59.5 ML/MIN; Potassium 3.8 mmol/L (3.5-5.1); Total Protein 6.4 g/dL (6.3-8.2)
[2024-10-28] MEDS: SODIUM BICARBONATE PO SCH (07:59)
[2024-10-28 08:20] LABS: Slide Review 1 YES
[2024-10-28] MEDS ORDERED: Hydromorphone 1 mg/ml Injection ONE (13:24)
[2024-10-28] MEDS: Hydromorphone 1 mg/ml Injection IV ONE (13:29)
[2024-10-28] MEDS ORDERED: Hydromorphone 1 mg/ml Injection IV PRN (13:30)
--- NOTE | 2024-10-28 15:03 | PCM.NOTE ---
Date and Time: 10/28/24 1456 Subjective Assessment: 10/28/24 Ms. 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 She then developed waves of nausea, abdominal pain and four episodes of diarrhea. She was seen in the ER at [place] on 10/27 and urinalysis demonstrated positive nitrites, so she was started on IVFs and antibiotics. She does take two diuretics but had held her lasix prior to her cardioversion. No fever/chills. No chest pain or shortness of breath. No dysuria, hematuria or urgency. Today she C/O RUQ, RLQ pain aching and constant. CT/Abd. Pelvis ordered. Pt was to be NPO 4 hours prior but her fmaily brought her [employer] so the test had to be postponed. She reports she is to have an OP US on 11/02 of her liver for a suspicious lesion, this was ordered by her PCP. AST and ALT elevated. She states she was able to sleep last night with provided melatonin. Prior to that she had not slept for 3 days. She was c/o back pain and wanted an XR yesterday, this was completed and showed no new concerns with chronic OA. CO2 19 continue IVF. Corrected CA+ 7.8. UC pending. Continue IV antibiotics for UTI. She denies CP, SOB, N/V/D. - Review of Systems Constitutional: No Fever, No Chills Eyes: No Symptoms Ears, Nose, & Throat: No Symptoms Respiratory: No Cough, No Short Of Breath Cardiac: No Chest Pain, No Edema, No Syncope Abdominal/Gastrointestinal: No Abdominal Pain, No Nausea, No Vomiting, No Diarrhea Genitourinary Symptoms: No Dysuria Musculoskeletal: No Back Pain, No Neck Pain Skin: No Rash Neurological: No Dizziness, No Focal Weakness, No Sensory Changes Psychological: No Symptoms Endocrine: No Symptoms Hematologic/Lymphatic: No Symptoms Immunological/Allergic: No Symptoms Objective Exam General Appearance: no apparent distress, alert Neurologic Exam: alert, oriented x 3, cooperative, normal mood/affect, nml cerebellar function, sensation nml, No motor deficits Skin Exam: normal color, warm, dry Eye Exam: PERRL, EOMI, eyes nml inspection Ears, Nose, Throat Exam: normal ENT inspection, pharynx normal, moist mucous membranes Neck Exam: normal inspection, non-tender, supple, full range of motion Respiratory Exam: normal breath sounds, lungs clear, No respiratory distress Cardiovascular Exam: regular rate/rhythm, normal heart sounds Gastrointestinal/Abdomen Exam: soft, tenderness (RUQ, RLQ), No mass Extremity Exam: normal inspection, normal range of motion Back Exam: normal inspection, normal range of motion, No CVA tenderness, No vertebral tenderness Pelvic Exam: deferred Rectal Exam: deferred Objective Data Vital Signs: Vital Signs - 24 hr Temp Pulse Resp BP Pulse Ox 10/28/24 11:39 96.5 F 74 16 139/62 100 10/28/24 07:48 96.9 F 68 19 180/84 97 10/28/24 04:22 97.2 F 66 20 180/76 96 10/27/24 20:00 97.6 F 70 18 143/67 98 10/27/24 16:00 97.3 F 59 L 18 165/82 98 Pain Assessment - Last Documented Pain Intensity 10 Pain Scale Used 0-10 Pain Scale Intake and Output: Intake & Output 10/26/24 10/27/24 10/28/24 10/29/24 11:59 11:59 11:59 11:59 Intake Total 120 1581 Balance 120 1581 Weight 72.8 kg Lab Results: Lab Results-Last 24 Hours 10/28/24 10/28/24 Range/Units 06:15 06:15 WBC 10.8 H (3.98-10.04) x10^3/uL RBC 3.48 L (3.93-5.22) x10^6/uL Hgb 10.7 L (11.2-15.7) g/dL Hct 32.7 L (34.1-44.9) % MCV 94.0 (79.4-94.8) fL MCH 30.7 (25.6-32.2) pg MCHC 32.7 (32.2-35.5) g/dL RDW 15.4 H (11.7-14.4) % Plt Count 213 (182-369) x10^3/uL MPV 9.8 (9.4-12.3) fL Gran % 89.4 H (34.0-71.1) % Immature Gran % (Auto) 0.5 H (0.001-0.429) % Nucleat RBC Rel Count 0.0 (0.00-0.2) % Eos # (Auto) 0.01 L (0.04-0.36) x10^3/uL Immature Gran # (Auto) 0.05 H (0.001-0.031) x10^3u/L Absolute Lymphs (auto) 0.51 L (1.18-3.74) x10^3/uL Absolute Monos (auto) 0.51 (0.24-0.86) x10^3/uL Absolute Nucleated RBC 0.00 (0.00-0.012) x10^3u/L Lymphocytes % 4.7 L (19.3-51.7) % Monocytes % 4.7 (4.7-12.5) % Eosinophils % 0.1 L (0.7-5.8) % Basophils % 0.6 (0.1-1.2) % Absolute Granulocytes 9.65 H (1.56-6.13) x10^3/uL Basophils # 0.07 (0.01-0.08) x10^3/uL Sodium 133 L (135-145) mmol/L Potassium 3.8 (3.5-5.1) mmol/L Chloride 104 (98-107) mmol/L Carbon Dioxide 19 L (22-30) mmol/L Anion Gap 13.5 (5-15) MEQ/L BUN 26 H (7-17) mg/dL Creatinine 1.00 (0.52-1.04) mg/dL Estimated GFR 59.5 ML/MIN Glucose 108 H (74-106) mg/dL Calcium 8.0 L (8.4-10.2) mg/dL Total Bilirubin 0.60 (0.2-1.3) mg/dL AST 100 H (14-36) U/L ALT 108 H (0-35) U/L Alkaline Phosphatase 97 (38-126) U/L Serum Total Protein 6.4 (6.3-8.2) g/dL Albumin 3.8 (3.5-5.0) g/dL Slides for Path Review YES Radiology Exams: Radiology Procedures Category Date Time Status ABDOMEN AND PELVIS W&WO CONTRA [CT] Routine Exams 10/28/24 11:06 Ordered CHEST 1 VIEW (PORTABLE) Routine Exams 10/27/24 00:42 Completed KUB Routine Exams 10/28/24 07:44 Ordered LUMBAR LIMITED (2 OR 3 VIEWS) Urgent Exams 10/27/24 12:39 Completed Assessment/Plan (1) UTI (lower urinary tract infection) Current Visit: Yes Status: Acute Assessment & Plan: - ceftriaxone - NS @ 50 ml/hr - UC pending- gram neg Code(s): N39.0 - URINARY TRACT INFECTION, SITE NOT SPECIFIED (2) Abdominal pain Current Visit: Yes Status: Acute Assessment & Plan: - KUB - CT abd/pelvis - RUQ, RLQ with palpation - WBC 10.8 - CBC, CMP reviewed Code(s): R10.9 - UNSPECIFIED ABDOMINAL PAIN (3) Metabolic acidosis Current Visit: Yes Status: Acute Assessment & Plan: - Co2 19 - IVF - Sodium bicarb PO Code(s): E87.20 - ACIDOSIS, UNSPECIFIED (4) Transaminitis Current Visit: Yes Status: Acute Assessment & Plan: - AST 100, ALT 108 - CT abd/pelvis- + abd pain today Code(s): R74.01 - ELEVATION OF LEVELS OF LIVER TRANSAMINASE LEVELS (5) Back pain Current Visit: Yes Status: Acute Assessment & Plan: - Lumbar XR: 3 view lumbar spine demonstrates 5 lumbar segments with osteopenia, minimal dextroscoliosis centered at L3, mild/moderate multilevel thoracolumbar degenerative spondylosis greatest at L4-S1 levels, and mild scattered vascular calcifications. No acute bony, articular, or soft tissue abnormalities. -may be 2:2 UTI Code(s): M54.9 - DORSALGIA, UNSPECIFIED (6) Insomnia Current Visit: Yes Status: Acute Assessment & Plan: - melatonin HS Code(s): G47.00 - INSOMNIA, UNSPECIFIED (7) Essential (primary) hypertension Current Visit: Yes Status: Chronic Assessment & Plan: - BP stable, Cont home meds- trend Code(s): I10 - ESSENTIAL (PRIMARY) HYPERTENSION (8) Generalized weakness Current Visit: Yes Status: Acute Assessment & Plan: - PT eval and treat - 2:2 UTI Code(s): R53.1 - WEAKNESS (9) Nausea & vomiting Current Visit: Yes Status: Resolved Assessment & Plan: - resolved - Compazine PRN Code(s): R11.2 - NAUSEA WITH VOMITING, UNSPECIFIED (10) Afib Current Visit: No Status: Chronic Assessment & Plan: - with cardioversion on by Dr. Rodriguez- cardiology - Continues to have a-fib despite cardioversion - Tele - Xarelto Code(s): I48.91 - UNSPECIFIED ATRIAL FIBRILLATION (11) Liver lesion Current Visit: Yes Status: Acute Assessment & Plan: - Per pt- she is to have an OP US of liver on 11/02 ordered by her PCP VTE: Xarelto PPI: Protonix Next of KIN: Friend- Kendrick Higginbotham- [phone] D/C plan: 1-2 days Code status: Full Code(s): K76.9 - LIVER DISEASE, UNSPECIFIED
[2024-10-28] MEDS ORDERED: Compazine 10 MG/2 ML IV PRN (15:12)
[2024-10-29 06:23] LABS: Hematocrit 30.8 % (34.1-44.9); Hemoglobin 9.9 g/dL (11.2-15.7); Mean Cell Volume 94.2 fL (79.4-94.8); Mean Corpuscular Hemoglobin 30.3 pg (25.6-32.2); Mean Corpuscular Hgb Concent. 32.1 g/dL (32.2-35.5); Mean Platelet Volume 9.8 fL (9.4-12.3); Platelet Count 191 x10^3/uL (182-369); Red Blood Count 3.27 x10^6/uL (3.93-5.22); Red Cell Distribution Width 15.1 % (11.7-14.4)
[2024-10-29 06:53] LABS: ALBUMIN 3.5 g/dL (3.5-5.0); ANION GAP 12.3 MEQ/L (5-15); BILIRUBIN,TOTAL 0.5 mg/dL (0.2-1.3); Creatinine 1 0.88 mg/dL (0.52-1.04); EST GLOMERULAR FILTRATION RATE 69.4 ML/MIN; Potassium 3.3 mmol/L (3.5-5.1)
[2024-10-29] MEDS: K-LYTE PO SCH (08:41)
[2024-10-29 12:16] VITALS: BP 196/89; PULSE 70; RESP 16; TEMP 98.3; O2SAT 94
--- NOTE | 2024-10-29 12:28 | PCM.DS ---
Discharge Summary Date of Admission: 10/27/24 04:54 Date of Discharge: 10/29/24 Admitting Physician: MIKY HEAD MD Consults: Consults on Case 10/27/24 06:22 Case Management [facility] Needs Assessment ROUTINE Primary Care Provider: RUSTAM WILLIS Allergies Allergies meclofenamic acid [From Meclomen] Allergy (Verified 10/27/24 00:21) naproxen Allergy (Verified 10/27/24 00:21) hydrocodone Adverse Reaction (Intermediate, Verified 10/27/24 00:21) Lightheadedness amlodipine Adverse Reaction (Verified 10/27/24 00:21) apixaban [From Eliquis] Adverse Reaction (Verified 10/27/24 00:21) Hospital Summary - Hospital Course Hospital Course: 10/28/24 Ms. 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 She then developed waves of nausea, abdominal pain and four episodes of diarrhea. She was seen in the ER at [facility] on 10/27 and urinalysis demonstrated positive nitrites, so she was started on IVFs and antibiotics. She does take two diuretics but had held her lasix prior to her cardioversion. No fever/chills. No chest pain or shortness of breath. No dysuria, hematuria or urgency. Today she C/O RUQ, RLQ pain aching and constant. CT/Abd. Pelvis ordered. Pt was to be NPO 4 hours prior but her fmaily brought her [employer] so the test had to be postponed. She reports she is to have an OP US on 11/02 of her liver for a suspicious lesion, this was ordered by her PCP. AST and ALT elevated. She states she was able to sleep last night with provided melatonin. Prior to that she had not slept for 3 days. She was c/o back pain and wanted an XR yesterday, this was completed and showed no new concerns with chronic OA. CO2 19 continue IVF. Corrected CA+ 7.8. UC pending. Continue IV antibiotics for UTI. She denies CP, SOB, N/V/D. 10/29/24 Pt resting in bed. Abd pain has improved. She is wanting to d/c home today. Metabolic acidosis resolved- sodium bicarb stopped. K+ 3.3 and replaced today. UC showed e-coli. will d/c with PO antibiotics. CT results are pending from yes terday. If these are ok will d/c today. She is scheduled to have an OP liver US by PCP. She denies CP, SOB, N/V/D. - Vitals & Intake/Output Vital Signs: Vital Signs Temperature 98.3 F 10/29/24 12:00 Pulse Rate 70 10/29/24 12:00 Respiratory Rate 16 10/29/24 12:00 Blood Pressure 196/89 10/29/24 12:00 O2 Sat by Pulse Oximetry 94 L 10/29/24 12:00 Intake & Output: Intake & Output 10/27/24 10/28/24 10/29/24 10/30/24 11:59 11:59 11:59 11:59 Intake Total 120 1581 0 Balance 120 1581 0 Weight 72.8 kg - Lab Result Diagrams: 10/29/24 06:15 10/29/24 12:47 Lab Results-Last 24 Hrs: Lab Results-Last 24 Hours 10/29/24 10/29/24 Range/Units 06:15 06:15 WBC 8.0 (3.98-10.04) x10^3/uL RBC 3.27 L (3.93-5.22) x10^6/uL Hgb 9.9 L (11.2-15.7) g/dL Hct 30.8 L (34.1-44.9) % MCV 94.2 (79.4-94.8) fL MCH 30.3 (25.6-32.2) pg MCHC 32.1 L (32.2-35.5) g/dL RDW 15.1 H (11.7-14.4) % Plt Count 191 (182-369) x10^3/uL MPV 9.8 (9.4-12.3) fL Sodium 135 (135-145) mmol/L Potassium 3.3 L (3.5-5.1) mmol/L Chloride 103 (98-107) mmol/L Carbon Dioxide 23 (22-30) mmol/L Anion Gap 12.3 (5-15) MEQ/L BUN 20 H (7-17) mg/dL Creatinine 0.88 (0.52-1.04) mg/dL Estimated GFR 69.4 ML/MIN Glucose 97 (74-106) mg/dL Calcium 8.0 L (8.4-10.2) mg/dL Total Bilirubin 0.50 (0.2-1.3) mg/dL AST 70 H (14-36) U/L ALT 97 H (0-35) U/L Alkaline Phosphatase 82 (38-126) U/L Serum Total Protein 6.0 L (6.3-8.2) g/dL Albumin 3.5 (3.5-5.0) g/dL Micro Results-Entire Visit: Microbiology 10/27/24 01:20 Urine Culture - Final Clean Catch Midstream Escherichia Coli - Radiology Exams Ordered Rad Exams-Entire Visit: Radiology Procedures Category Date Time Status ABDOMEN AND PELVIS W&WO CONTRA [CT] Routine Exams 10/28/24 11:06 Taken LUMBAR LIMITED (2 OR 3 VIEWS) Urgent Exams 10/27/24 12:39 Completed - Procedures and Test Procedures and Tests throughout Hospitalization: Therapy Orders & Screens 10/27/24 07:58 PT Eval & Treat (MD Order) ONCE Reason for Eval:: generalized weakness Diagnosis: abd pain 10/28/24 15:11 PT Eval & Treat (MD Order) ONCE Reason for Eval:: weakness Diagnosis: abd pain Discharge Exam General Appearance: no apparent distress, alert Neurologic Exam: alert, oriented x 3, cooperative, normal mood/affect, nml cere bellar function, sensation nml, No motor deficits Eye Exam: PERRL, EOMI, eyes nml inspection Ears, Nose, Throat Exam: normal ENT inspection, pharynx normal, moist mucous membranes Neck Exam: normal inspection, non-tender, supple, full range of motion Respiratory Exam: normal breath sounds, lungs clear, No respiratory distress Cardiovascular Exam: regular rate/rhythm, normal heart sounds Gastrointestinal/Abdomen Exam: soft, tenderness (RUQ with palpation), No mass Pelvic Exam: deferred Rectal Exam: deferred Back Exam: normal inspection, normal range of motion, No CVA tenderness, No vertebral tenderness Extremity Exam: normal inspection, normal range of motion Skin Exam: normal color, warm, dry Final Diagnosis/Problem List - Final Discharge Diagnosis/Problem (1) UTI (lower urinary tract infection) Current Visit: Yes Status: Acute Code(s): N39.0 - URINARY TRACT INFECTION, SITE NOT SPECIFIED (2) Abdominal pain Current Visit: Yes Status: Acute Code(s): R10.9 - UNSPECIFIED ABDOMINAL PAIN (3) Metabolic acidosis Current Visit: Yes Status: Acute Code(s): E87.20 - ACIDOSIS, UNSPECIFIED (4) Transaminitis Current Visit: Yes Status: Acute Code(s): R74.01 - ELEVATION OF LEVELS OF LIVER TRANSAMINASE LEVELS (5) Back pain Current Visit: Yes Status: Acute Code(s): M54.9 - DORSALGIA, UNSPECIFIED (6) Insomnia Current Visit: Yes Status: Acute Code(s): G47.00 - INSOMNIA, UNSPECIFIED (7) Essential (primary) hypertension Current Visit: Yes Status: Chronic Code(s): I10 - ESSENTIAL (PRIMARY) HYPERTENSION (8) Generalized weakness Current Visit: Yes Status: Acute Code(s): R53.1 - WEAKNESS (9) Nausea & vomiting Current Visit: Yes Status: Resolved Code(s): R11.2 - NAUSEA WITH VOMITING, UNSPECIFIED (10) Afib Current Visit: No Status: Chronic Code(s): I48.91 - UNSPECIFIED ATRIAL FIBRILLATION (11) Liver lesion Current Visit: Yes Status: Acute Assessment & Plan: (1) UTI (lower urinary tract infection) Current Visit: Yes Status: Acute Assessment & Plan: - ceftriaxone - NS @ 50 ml/hr - UC pending- gram neg 2/2 - UC E-coli - Continue OP antibiotics Code(s): N39.0 - URINARY TRACT INFECTION, SITE NOT SPECIFIED (2) Abdominal pain Current Visit: Yes Status: Acute Assessment & Plan: - KUB - CT abd/pelvis - RUQ, RLQ with palpation - WBC 10.8 - CBC, CMP reviewed 2/2 -CBC, CMP reviewed - WBC WNL - CT abd/pelvis- pending Code(s): R10.9 - UNSPECIFIED ABDOMINAL PAIN (3) Metabolic acidosis Current Visit: Yes Status: Acute Assessment & Plan: - Co2 19 - IVF - Sodium bicarb PO 2/2 - resolved - Sodium bicarb- stopped Code(s): E87.20 - ACIDOSIS, UNSPECIFIED (4) Transaminitis Current Visit: Yes Status: Acute Assessment & Plan: - AST 100, ALT 108 - CT abd/pelvis- + abd pain today 2/2 - AST 70, ALT 97- improved - CT results: 1. Extensive sigmoid diverticulosis, no evidence of diverticulitis. 2. Bilateral adenaxal cysts, mostly ovarian, show no interval changes. 3. Left hepatic lobe hypodense lesion, shows no interval changes, with a benign appearance. 4. Bilateral perinephric fat stranding, mostly inflammatory, shows no interval changes. 5. Splenic and hepatic calcified tiny granulomas. 6. New finding: bilateral pleural effusion. 7. Cardiomegaly. Code(s): R74.01 - ELEVATION OF LEVELS OF LIVER TRANSAMINASE LEVELS (5) Back pain Current Visit: Yes Status: Acute Assessment & Plan: - Lumbar XR: 3 view lumbar spine demonstrates 5 lumbar segments with osteopenia, minimal dextroscoliosis centered at L3, mild/moderate multilevel thoracolumbar degenerative spondylosis greatest at L4-S1 levels, and mild scattered vascular calcifications. No acute bony, articular, or soft tissue abnormalities. -may be 2:2 UTI Code(s): M54.9 - DORSALGIA, UNSPECIFIED (6) Insomnia Current Visit: Yes Status: Acute Assessment & Plan: - melatonin HS Code(s): G47.00 - INSOMNIA, UNSPECIFIED (7) Essential (primary) hypertension Current Visit: Yes Status: Chronic Assessment & Plan: - BP stable, Cont home meds- trend Code(s): I10 - ESSENTIAL (PRIMARY) HYPERTENSION (8) Generalized weakness Current Visit: Yes Status: Acute Assessment & Plan: - PT eval and treat - 2:2 UTI Code(s): R53.1 - WEAKNESS (9) Nausea & vomiting Current Visit: Yes Status: Resolved Assessment & Plan: - resolved - Compazine PRN Code(s): R11.2 - NAUSEA WITH VOMITING, UNSPECIFIED (10) Afib Current Visit: No Status: Chronic Assessment & Plan: - with cardioversion on by Dr. Rodriguez- cardiology - Continues to have a-fib despite cardioversion - Tele - Xarelto 10/29 - F/U OP with Dr. Rodriguez Code(s): I48.91 - UNSPECIFIED ATRIAL FIBRILLATION (11) Liver lesion Current Visit: Yes Status: Acute Assessment & Plan: - Per pt- she is to have an OP US of liver on 11/02 ordered by her PCP- F/U OP for this. Code(s): K76.9 - LIVER DISEASE, UNSPECIFIED (12) Hypokalemia Current Visit: Yes Status: Acute Assessment & Plan: - K+ 3.3- replaced- trend Code(s): E87.6 - HYPOKALEMIA (13) Pyelonephritis Current Visit: Yes Status: Acute Assessment & Plan: - as seen on CT continue IV antibiotics Code(s): N12 - TUBULO-INTERSTITIAL NEPHRITIS, NOT SPCF ACUTE OR CHRONIC - Discharge Discharge Date: 10/29/24 Disposition: Home, Self-Care Condition: Stable Prescriptions: New cefuroxime axetiL [Cefuroxime] 500 mg PO BID 5 Days #10 tablet Continue Enalapril Maleate 20 mg PO BID Allopurinol 100 mg [Zyloprim 100 mg] 2 tab PO DAILY Furosemide 20 mg [Lasix 20 mg] 1 tab PO DAILY Rivaroxaban [Xarelto] 1 tab PO DAILY Zinc Gluconate [Zinc] 1 tab PO DAILY B-Complex with Vitamin C [Vitamin B-Complex & C] 1 tab PO DAILY Estradiol [Estrace] 0.75 mg PO DAILY Hydrochlorothiazide 25 mg [hydroDIURIL 25 MG] 25 mg PO DAILY Tizanidine HCl 4 mg [Zanaflex 4 MG] 0.25 tab PO HS Flecainide Acetate 50 mg PO Q12H Cetirizine HCl 5 mg PO DAILY Metoprolol Succinate 50 mg [Toprol Xl 50 MG] 50 mg PO BID Additional Instructions: Please swetha and make an appointment for follow up with Dr. Rodriguez as you are in and out of A-fib here. Please follow up with PCP after 5 days and get a repeat UA to see if you continue to have an infection. Follow up with: RUSTAM WILLIS [Primary Care Provider] -
--- NOTE | 2024-10-29 13:12 | XRAY ---
CLINICAL HISTORY: RUQ pain COMPARISON: CT dated 06/06/2023. TECHNIQUE: CT of the abdomen and pelvis was performed with and without contrast, with the following protocol: axial images with, and reconstructed coronal and sagittal images. Intravenous contrast was administerd. One of the following dose reduction techniques was utilized for this exam: Automated exposure control, adjustment of the mA and/or kV according to patient size, and use of iterative reconstruction. FINDINGS: Abdomen: Liver: Normal in size, shape, and density. A small hypodense lesion noted at the left hepatic lone measuring 9x7 mm shows no significant post-contrast enhancement. Tiny calcified granulomas were noted. Hepatic vasculature and biliary ducts are unremarkable. Gallbladder and Biliary System: The gallbladder is normal in size and shape. No wall thickening, pericholecystic fluid, or gallstones were identified. The common bile duct is normal in caliber without dilation. Pancreas: Pancreatic head, body, and tail are visualized and appear normal in size and density. No pancreatic masses or calcifications were noted. The pancreatic duct is not dilated. Spleen: Normal in size, shape, and density. Tiny calcified granulomas were noted. No splenic lesions or masses were identified. Appendix: The appendix is normal in size without timbo appendiceal fat stranding and without an appendicolith. No evidence of appendiceal abscess or perforation. Kidneys and Adrenal Glands: Both kidneys are normal in size, shape, and position. Cortical thickness is within normal limits. No renal calculi or hydronephrosis. Bilateral perinephric fat stranding noted. Adrenal glands are unremarkable with no evidence of masses or hyperplasia. Pelvis: Urinary Bladder: Normal in contour and wall thickness. No intraluminal lesions were identified. Uterus: is surgically removed. Bilateral unilocular adnexal cysts were noted, measuring < 3 in maximum length. Peritoneal and Retroperitoneal Structures: No free fluid or abnormal fluid collections were identified within the abdomen or pelvis. No lymphadenopathy was noted. Bowel: The visualized bowel loops are normal in caliber and appearance. No evidence of bowel obstruction or wall thickening. Multiple different-size sigmoid diverticular outpouchings were noted, with no evidence of diverticulitis or perforation. Bones and Soft Tissues: Chronic spondylodegnerative changes of the spine. Lower chest shows cardiomegaly with bilateral pleural effusion. IMPRESSION: 1. Extensive sigmoid diverticulosis, no evidence of diverticulitis. 2. Bilateral adenaxal cysts, mostly ovarian, show no interval changes. 3. Left hepatic lobe hypodense lesion, shows no interval changes, with a benign appearance. 4. Bilateral perinephric fat stranding, mostly inflammatory, shows no interval changes. 5. Splenic and hepatic calcified tiny granulomas. 6. New finding: bilateral pleural effusion. 7. Cardiomegaly. Electronically Signed by: Rita Mejia MD. (10/29/2024 13:08:17 EST)
== END 2024-10-29 15:19 | disposition home or self-care (01) ==
LOC: ED 22:52 → MED SURG 10-27 04:54
PROVIDERS: ADMIT Internal Medicine Nephrology; ATTEND Internal Medicine Nephrology
DX: N39.0 Urinary tract infection, site not specified (principal); R10.9 Unspecified abdominal pain; E87.20 Acidosis, unspecified; R74.01 Elevation of levels of liver transaminase levels; M54.9 Dorsalgia, unspecified; G47.00 Insomnia, unspecified; I10 Essential (primary) hypertension; R53.1 Weakness; R11.2 Nausea with vomiting, unspecified; I48.91 Unspecified atrial fibrillation; K76.9 Liver disease, unspecified; E87.6 Hypokalemia; N12 Tubulo-interstitial nephritis, not specified as acute or chronic; Z79.01 Long term (current) use of anticoagulants; Z79.899 Other long term (current) drug therapy
CPT/HCPCS: 0241U; 36415; 71045; 72100; 74178; 80053; 81001; 83690; 83735; 84132; 84484; 85025; 85027; 87077; 87086; 87186; 93005; 93268; 96374; 96375; 99284; 99285; J0696; J1171; J2405; Q3014; A9270-GY; G0378